=== PATIENT | male | born 1935 | race Caucasian/White ===

== ENCOUNTER 2017-07-23 11:12 | Inpatient (IN) | payer MEDICARE ==
[~2017-07-23] VITALS: Ht 177.8 cm; Wt 97.1 kg
[~2017-07-23 11:12] MED LIST: ALLOPURINOL300 MG PO; DIGOXIN125 MCG PO; FLOMAX0.4 MG PO; FUROSEMIDE40 MG PO; HUMALOG100 UNIT/1 SC; LEVAQUIN500 MG PO; LEVEMIR100 UNIT/1 SC; LEVOTHYROXINE100 MC1 PO; LEVOTHYROXINE75 MCG PO; LOVENOX60 MG/0.6 SC; METOLAZONE5 MG PO; METOPROLOL TART50 MG PO; MIDODRINE HCL2.5 MG PO; MUPIROCIN22 GM TOP; POTASSIUM CHLO10 ME1 PO; WARFARIN SODIUM2 MG PO
[2017-07-23 12:13] LABS: BASOPHILS # (AUTO) 0.1 (0.0-0.1); BASOPHILS % 0.8 % (0.0-1.0); EOSINOPHILS % 0.2 % (0.0-6.0); HEMATOCRIT 35.5 % (38.2-49.6); HEMOGLOBIN 11.4 g/dL (14.0-18.0); LYMPHOCYTES # (AUTO) 1.3 (1.0-3.2); LYMPHOCYTES % 12.1 % (18.0-39.1); MEAN CORPUSCULAR HEMOGLOBIN 30.3 pg (28-32); MEAN CORPUSCULAR HGB CONC 32.1 g/dL (31-35); MEAN CORPUSCULAR VOLUME 94.4 fL (81-99); MONOCYTES # (AUTO) 1.8 (0.2-0.8); MONOCYTES % 16.1 % (4.4-11.3); NEUTROPHILS # (AUTO) 6.6 (2.1-6.9); NEUTROPHILS % 60.6 % (38.7-80.0); PLATELET COUNT 233 x10e3/uL (140-360); RED BLOOD COUNT 3.76 x10e6/uL (4.3-5.7); RED CELL DISTRIBUTION WIDTH 17.3 % (11.7-14.4)
[2017-07-23] MEDS ORDERED: ASPIRIN 81 MG CHEW TAB PO ONE (12:15)
[2017-07-23] MEDS ORDERED: ONDANSETRON HCL INJ 2 MG/ML VIAL IV STA (12:20)
[2017-07-23 12:31] LABS: ALBUMIN/GLOBULIN RATIO 0.8 (0.8-2.0); ANION GAP 20.2 mmol/L (8-16); CALCIUM 9.3 mg/dL (8.4-10.2); CREATININE, SERUM 1.74 mg/dL (0.72-1.25); POTASSIUM 4.2 mmol/L (3.5-5.1)
[2017-07-23 13:04] LABS: INR 2.99; PROTHROMBIN TIME 32.7 seconds (11.9-14.5)
[2017-07-23 13:05] LABS: PARTIAL THROMBOPLASTIN TIME 57.5 seconds (23.8-35.5)
--- NOTE | 2017-07-23 13:07 | Diagnostic Imaging Report ---
PROCEDURE: A single AP view of the chest. COMPARISON: Patients [facility], , CHEST 2 VIEWS, 06/20/2017, 15:59. INDICATIONS: NAUSEA, PASSED OUT FINDINGS: Lines/tubes: None. Lungs: Lungs are hypoinflated, but grossly clear. No consolidation or pulmonary edema. Pleura: There is no pleural effusion or pneumothorax. Heart and mediastinum: Prominence of the cardiac silhouette, which is partly due to low lung volumes and AP projection. Bones: No acute bony abnormality. IMPRESSION: 1. hypoinflated lungs, without acute cardiopulmonary disease. Clint Romano M.D. Dictated by: Clint Romano M.D. on 07/23/2017 at 13:14 Electronically approved by: Clint Romano M.D. on 07/23/2017 at 13:14
[2017-07-23 14:16] LABS: TROPONIN I 0.012 ng/mL (0-0.300)
--- NOTE | 2017-07-23 14:24 | Diagnostic Imaging Report ---
History:Syncope Comparison studies:None Technique: Axial images were obtained from the skull base to the vertex. Coronal and sagittal images reconstructed from the axial data. Intravenous contrast: None Findings: Scalp/skull: No abnormalities. Extra-axial spaces: No masses. No fluid collections. Brain sulci: Mildly prominent. Ventricles: Mild compensatory dilatation. No hydrocephalus. Parenchyma: Scattered hypodensities in the supratentorial white matter are small vessel ischemic changes. Small chronic lacunar infarct at the bilateral striatocapsular subinsular regions. No masses, hemorrhage, acute or chronic cortical vascular insults. Sellar/suprasellar region: No abnormalities. Craniocervical junction: Patent foramen magnum. No Chiari one malformation. Incidental findings: Atherosclerotic calcifications in the carotid siphons and vertebral arteries . Impression: No acute abnormalities. Chronic findings: 1. Mild generalized volume loss. 2. Mild supratentorial white matter small vessel ischemic changes. Signed by: DR Cory Clark M.D. on 07/23/2017 2:20 PM
[2017-07-23 14:32] LABS: LYMPHOCYTES % (MANUAL) 11 % (19-48); METAMYELOCYTES % (MANUAL) 4 % (0-0); MONOCYTES % (MANUAL) 15 % (3.4-9.0); MYELOCYTES % (MANUAL) 3 % (0-0); NEUTROPHILS % (MANUAL) 63 % (40-74); PROMYELOCYTES % (MANUAL) 2 % (0-0)
[2017-07-23 14:33] LABS: ANISOCYTOSIS SLIGHT; HYPOCHROMASIA SLIGHT; PLATELET ESTIMATE ADEQUATE; PLATELET MORPHOLOGY COMMENT NORMAL; RBC MORPHOLOGY COMMENT NORMAL
[2017-07-23] MEDS ORDERED: ACETAMINOPHEN 325 MG TAB PO ONE (15:00)
[2017-07-23] MEDS ORDERED: SODIUM CHLORIDE 0.9% 1000ML 1,000 ML IV SCH (15:00)
[2017-07-23 15:29] LABS: BILIRUBIN,URINE NEGATIVE (NEGATIVE); KETONES,URINE NEGATIVE (NEGATIVE); LEUKOCYTE ESTERASE ,URINE 2+ (NEGATIVE); NITRITE,URINE NEGATIVE (NEGATIVE); URINE UROBILINOGEN 0.2 mg/dL (0.2 - 1)
[2017-07-23 15:30] LABS: CLARITY,URINE SL CLOUDY (CLEAR); COLOR,URINE YELLOW (YELLOW); PROTEIN,URINE DIPSTICK 1+ (NEGATIVE)
[2017-07-23 15:47] LABS: BACTERIA,URINE MODERATE /HPF; RBC,URINE >50 /HPF (0-5); WBC,URINE (MAN) >50 /HPF (0-5)
[2017-07-23 15:48] LABS: AMORPHOUS SEDIMENT,URINE FEW (FEW)
[2017-07-23] MEDS ORDERED: CIPRO500 MG PO (17:07)
[2017-07-23] MEDS ORDERED: DOXYCYCLINE HY100 MG PO (17:07)
[2017-07-23] MEDS ORDERED: CEFTRIAXONE SOD 1 GM/NS 50 ML 50 ML IV STA (17:10)
[2017-07-23] MEDS ORDERED: DEXTROSE 50% SYRINGE 50 ML IV PRN (17:45)
[2017-07-23] MEDS ORDERED: TRAMADOL HCL 50 MG TAB PO ONE (17:45)
[2017-07-23] MEDS ORDERED: ONDANSETRON HCL INJ 2 MG/ML VIAL IV PRN (17:45)
[2017-07-23] MEDS: SODIUM CHLORIDE 0.9% 1000ML 1,000 ML IV SCH (18:06)
[2017-07-23 20:20] VITALS: BP 104/59
[2017-07-23 20:45] VITALS: BP 104/59
[2017-07-23] MEDS: INSULIN REGULAR, HUMAN 100 UNIT/1 ML 3ML VIAL SQ SCH (21:00)
[2017-07-23 22:19] LABS: CREATINE KINASE MB 0.9 ng/mL (0.00-5.00); TROPONIN I 0.005 ng/mL (0-0.300)
[2017-07-24] VITALS: BP 112/60
[2017-07-24] MEDS: SODIUM CHLORIDE 0.9% 1000ML 1,000 ML IV SCH ×2 (01:40→08:05)
[2017-07-24 04:00] VITALS: BP 139/67
[2017-07-24 06:40] LABS: BASOPHILS % 0.5 % (0.0-1.0); EOSINOPHILS % 0.4 % (0.0-6.0); HEMATOCRIT 29.3 % (38.2-49.6); HEMOGLOBIN 9.3 g/dL (14.0-18.0); LYMPHOCYTES # (AUTO) 1.5 (1.0-3.2); LYMPHOCYTES % 18.1 % (18.0-39.1); MEAN CORPUSCULAR HGB CONC 31.7 g/dL (31-35); MEAN CORPUSCULAR VOLUME 94.5 fL (81-99); MONOCYTES # (AUTO) 1.7 (0.2-0.8); MONOCYTES % 20.1 % (4.4-11.3); NEUTROPHILS # (AUTO) 4.5 (2.1-6.9); NEUTROPHILS % 53.2 % (38.7-80.0); PLATELET COUNT 163 x10e3/uL (140-360); RED CELL DISTRIBUTION WIDTH 17.3 % (11.7-14.4)
[2017-07-24 06:59] LABS: INR 3.51; PROTHROMBIN TIME 37.1 seconds (11.9-14.5)
[2017-07-24 07:18] LABS: ANION GAP 15.9 mmol/L (8-16); CALCIUM 8.3 mg/dL (8.4-10.2); CREATININE, SERUM 1.57 mg/dL (0.72-1.25); POTASSIUM 3.9 mmol/L (3.5-5.1)
[2017-07-24 07:26] LABS: CREATINE KINASE MB 1.1 ng/mL (0.00-5.00); TROPONIN I 0.015 ng/mL (0-0.300)
[2017-07-24 07:48] LABS: ANISOCYTOSIS SLIGHT; EOSINOPHILS % (MANUAL) 1 % (0-7); LYMPHOCYTES % (MANUAL) 16 % (19-48); METAMYELOCYTES % (MANUAL) 4 % (0-0); MONOCYTES % (MANUAL) 20 % (3.4-9.0); NEUTROPHILS % (MANUAL) 54 % (40-74); NUCLEATED RED BLOOD CELLS 2; PROMYELOCYTES % (MANUAL) 1 % (0-0); RBC MORPHOLOGY COMMENT NORMAL
[2017-07-24 07:49] LABS: HYPOCHROMASIA SLIGHT; PLATELET ESTIMATE ADEQUATE; PLATELET MORPHOLOGY COMMENT NORMAL
[2017-07-24] MEDS: DOXYCYCLINE HYCLATE TABLET 100 MG TAB PO SCH ×2 (08:05→17:00)
[2017-07-24] MEDS: CEFTRIAXONE SOD 1 GM/NS 50 ML 50 ML IV SCH (08:05)
[2017-07-24] MEDS: INSULIN REGULAR, HUMAN 100 UNIT/1 ML 3ML VIAL SQ SCH ×5 (08:05→21:23)
[2017-07-24] MEDS ORDERED: CIPROFLOXACIN 500 MG TAB PO SCH (09:00)
[2017-07-24 11:29] VITALS: BP 127/67
[2017-07-24] MEDS ORDERED: PROPOFOL IV EMULSION 10 MG/ML 20 ML VIAL ONE (14:39)
--- NOTE | 2017-07-24 15:08 | Consultation ---
DATE OF CONSULTATION: July 24, 2017 REASON FOR CONSULTATION: Open wound on the foot. HISTORY OF PRESENT ILLNESS: This patient is an 82-year-old white gentleman with history of diabetes mellitus, chronic hypertension, neuropathy, hypothyroidism, hypertension, chronic kidney disease, anemia, neuropathy, sleep apnea. The patient was recently admitted back on June 21, 2017, with osteomyelitis of the left big toe. He underwent amputation of the big toe and was transferred to [facility], where he received IV antibiotic, and he was doing good. The patient was discharged home recently. He apparently sustained trauma to the foot at the site of the amputation. He has a hematoma. He was going to see podiatry today, Dr. Sajan Carroll. However, in the parking lot, he almost passed out, so instead they brought him to the emergency room. In the emergency room, he was found to be hypotensive and orthostatic, so he was admitted. When I saw the patient, he is currently lying in bed comfortably. He has no complaints. I was asked to see him to make adjustment in his antibiotic for his foot. PAST MEDICAL HISTORY: As mentioned above. PAST SURGICAL HISTORY: Amputation of the toe. ALLERGIES: NKA. SOCIAL HISTORY: There is no smoking, drug abuse or alcohol abuse. FAMILY HISTORY: Otherwise unremarkable. REVIEW OF SYSTEMS HEENT: Negative. PULMONARY: Negative. CARDIAC: Negative. : Negative. SKIN: There is no rash. JOINTS: No new complaint. OTHER: I reviewed the patient's 14 points, and all are within normal limits. LABS: White count 10.9, hemoglobin 11.4, platelets 233. Sodium 140, potassium 3.9, creatinine 1.57. PHYSICAL EXAMINATION GENERAL: He is currently alert and oriented, does not seem to be in acute distress. VITALS: Stable, currently afebrile. HEENT: Not icteric. NECK: Supple. CHEST: Clear bilaterally. COR: S1 and S2. No S3, S4, or murmur. ABDOMEN: Soft. Bowel sounds present. No tenderness. SKIN: The foot looked good. There is some hematoma noted, but it was covered. IMPRESSION 1. History of osteomyelitis, status post amputation of the toe. He is currently on ceftriaxone. I have reviewed his record. He grew no bacteria. Will keep him on Rocephin 2 grams daily. Obtain sed rate and C-reactive protein. Continue with wound care. 2. Chronic kidney disease. 3. Hypertension. I will follow with you. Will obtain x-ray of the foot. JESSICA MCINTYRE MD Job#: [id number] MH
--- NOTE | 2017-07-24 15:35 | Consultation ---
DATE OF CONSULTATION: July 24, 2017 CHIEF COMPLAINT/HISTORY OF CHIEF COMPLAINT: Mr. Sanches is a most pleasant 82-year-old gentleman who is well known to me from previous visits to the office. He arrived in the office today with his son and had a syncopal episode in the parking lot, never actually making it inside the office. He was seen slumped over in the backseat of his son's minivan while trying to transfer him into the chair. EMS was called, and he was transported to the emergency room where he has regained consciousness and was admitted for observation under Dr. Jackson. PAST MEDICAL HISTORY: The patient's previous medical history includes hypertension, diabetes, heart disease. He is hypothyroid, has a history of diverticulitis, colitis and renal disease. He recently several weeks ago underwent an amputation of the right hallux. He has a colostomy currently. REVIEW OF SYSTEMS: The patient is alert and awake on today's visit and complains of no pain. He has no difficulty in breathing and is alert and conversive with his son in the room. Review of systems otherwise within normal limits. Please see medical H\T\P for further information. PHYSICAL EVALUATION LOWER EXTREMITY VASCULAR STATUS: The patient has nonpalpable pedal pulses with peripheral arterial disease present. NEUROLOGICALLY: There is a loss of protective sensation as evidenced by Waka-Kobe monofilament testing. DERMATOLOGICALLY: The patient has an amputation site on the right hallux which is not yet healed from surgery several weeks ago. The sutures still remain, and the central aspect of the wound has dehisced with a mild hematoma formation. Apparently he bumped his foot on transport from [place] back to his home and was awaiting further evaluation in the office yesterday when the syncopal episode occurred. The patient states that he had been minimally oozing blood from the wound, and after the episode in transport to the hospital he noticed more shaina bleeding. DIAGNOSIS: On evaluation today, Surgicel is covering the surgical site, which was applied in the ER and has done a good job of coagulating the area. The patient is on anticoagulants currently as necessitated by his heart condition and multiple medical pathologies. Dr. Jackson is managing him from a hematologic standpoint. By all accounts, he had been bleeding minimally from the wound and in the ER was noted to be bleeding fairly heavily prior to the Surgicel application. At this point, there is no shaina bleeding noted. I recommend leaving the Surgicel over the wound and covering with Bactroban and dry gauze and mild compression once daily over the course of the next week, at which point he will be reevaluated with regards to wound healing for possible suture removal or further recommendations. Sterile rewrap today with the appropriate mildly compressive dressings. PT is allowed to ambulate the patient with a nonweightbearing status to the right foot. Job#: [id number] EV
[2017-07-24 16:00] VITALS: BP 130/62
--- NOTE | 2017-07-24 17:15 | Diagnostic Imaging Report ---
PROCEDURE:X-RAY LEFT FOOT, COMPLETE COMPARISON:[facility], DX, FOOT RIGHT AP \T\ LAT, 11/23/2015, 8:25. INDICATIONS:DIABETES FINDINGS: Marked generalized osteopenia, which limits evaluation of the bony structures. Postoperative changes of bunionectomy in the first metatarsal bone, with associated degenerative changes in the first toe tarsometatarsal and metatarsophalangeal joints. 2 metallic screws are noted in the distal diaphysis of the first metatarsal bone. 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 No definite cortical erosion is noted. Extensive vascular calcifications. Soft tissue swelling in the dorsal and plantar aspect of the foot. CONCLUSION: 1. Exam markedly limited by generalized osteopenia. 2. No definite cortical erosion is noted to suggest osteomyelitis. 3. Findings suggest chronic Lisfranc injury Clint Romano M.D. Dictated by: Clint Romano M.D. on 07/24/2017 at 17:21 Electronically approved by: Clint Romano M.D. on 07/24/2017 at 17:21
[2017-07-24 20:00] VITALS: BP 127/66
[2017-07-25 00:20] VITALS: BP 133/71
[2017-07-25 04:00] VITALS: BP 135/75
[2017-07-25 06:32] LABS: BASOPHILS % 0.4 % (0.0-1.0); EOSINOPHILS % 0.2 % (0.0-6.0); HEMATOCRIT 28.5 % (38.2-49.6); HEMOGLOBIN 8.9 g/dL (14.0-18.0); LYMPHOCYTES # (AUTO) 1.3 (1.0-3.2); MEAN CORPUSCULAR HEMOGLOBIN 29.8 pg (28-32); MEAN CORPUSCULAR HGB CONC 31.2 g/dL (31-35); MEAN CORPUSCULAR VOLUME 95.3 fL (81-99); MONOCYTES % 22.7 % (4.4-11.3); NEUTROPHILS % 55.1 % (38.7-80.0); PLATELET COUNT 147 x10e3/uL (140-360); RED BLOOD COUNT 2.99 x10e6/uL (4.3-5.7); RED CELL DISTRIBUTION WIDTH 17.2 % (11.7-14.4)
[2017-07-25 06:47] LABS: INR 3.24; PROTHROMBIN TIME 34.8 seconds (11.9-14.5)
[2017-07-25] MEDS: INSULIN REGULAR, HUMAN 100 UNIT/1 ML 3ML VIAL SQ SCH ×4 (07:30→21:00)
[2017-07-25 07:39] LABS: EOSINOPHILS % (MANUAL) 1 % (0-7); LYMPHOCYTES % (MANUAL) 16 % (19-48); METAMYELOCYTES % (MANUAL) 3 % (0-0); MONOCYTES % (MANUAL) 18 % (3.4-9.0); MYELOCYTES % (MANUAL) 1 % (0-0); NEUTROPHILS % (MANUAL) 60 % (40-74); NUCLEATED RED BLOOD CELLS 1; PLATELET ESTIMATE SLIGHTLY DECREASED; PLATELET MORPHOLOGY COMMENT NORMAL; PROMYELOCYTES % (MANUAL) 1 % (0-0); RBC MORPHOLOGY COMMENT NORMAL
[2017-07-25 07:40] LABS: ANISOCYTOSIS SLIGHT; HYPOCHROMASIA SLIGHT
[2017-07-25 08:01] VITALS: BP 119/75
[2017-07-25] MEDS: DOXYCYCLINE HYCLATE TABLET 100 MG TAB PO SCH (08:14)
[2017-07-25] MEDS: MUPIROCIN 2% OINT 22 GM TUBE TOP SCH (09:00)
[2017-07-25] MEDS: TRAMADOL HCL 50 MG TAB PO PRN ×2 (09:00→15:34)
[2017-07-25] MEDS: CEFTRIAXONE SOD 1 GM/NS 50 ML 50 ML IV SCH (09:00)
[2017-07-25 12:00] VITALS: BP 136/66
[2017-07-25 16:00] VITALS: BP 121/68
[2017-07-25 20:39] VITALS: BP 149/81
[2017-07-26 00:55] VITALS: BP 148/81
[2017-07-26 05:17] VITALS: BP 133/86
[2017-07-26 06:23] LABS: BASOPHILS # (AUTO) 0.1 (0.0-0.1); BASOPHILS % 0.5 % (0.0-1.0); EOSINOPHILS # (AUTO) 0.1 (0.0-0.4); EOSINOPHILS % 0.6 % (0.0-6.0); HEMATOCRIT 28.2 % (38.2-49.6); HEMOGLOBIN 9.1 g/dL (14.0-18.0); LYMPHOCYTES # (AUTO) 0.9 (1.0-3.2); LYMPHOCYTES % 9.5 % (18.0-39.1); MEAN CORPUSCULAR HEMOGLOBIN 30.3 pg (28-32); MEAN CORPUSCULAR HGB CONC 32.3 g/dL (31-35); MONOCYTES # (AUTO) 2.4 (0.2-0.8); MONOCYTES % 24.9 % (4.4-11.3); NEUTROPHILS # (AUTO) 5.2 (2.1-6.9); NEUTROPHILS % 54.5 % (38.7-80.0); PLATELET COUNT 122 x10e3/uL (140-360)
[2017-07-26 06:36] LABS: INR 2.49; PROTHROMBIN TIME 28.3 seconds (11.9-14.5)
[2017-07-26 08:00] VITALS: BP 138/76
[2017-07-26] MEDS ORDERED: PEG (High)/E-LYTE SOLN 4,000 ML BTL PO ONE (08:45)
[2017-07-26] MEDS ORDERED: BISACODYL 5 MG TAB EC PO ONE (08:45)
[2017-07-26] MEDS: CEFTRIAXONE SOD 1 GM/NS 50 ML 50 ML IV SCH (09:29)
[2017-07-26] MEDS: MUPIROCIN 2% OINT 22 GM TUBE TOP SCH (09:29)
[2017-07-26] MEDS: INSULIN REGULAR, HUMAN 100 UNIT/1 ML 3ML VIAL SQ SCH ×4 (09:48→20:40)
[2017-07-26] MEDS: TRAMADOL HCL 50 MG TAB PO PRN ×3 (10:42→20:39)
[2017-07-26 10:57] LABS: EOSINOPHILS % (MANUAL) 3 % (0-7)
[2017-07-26 11:01] LABS: BAND NEUTROPHILS % (MANUAL) 1 %; LYMPHOCYTES % (MANUAL) 11 % (19-48); METAMYELOCYTES % (MANUAL) 1 % (0-0); MONOCYTES % (MANUAL) 20 % (3.4-9.0); NEUTROPHILS % (MANUAL) 63 % (40-74)
[2017-07-26 11:03] LABS: HYPOCHROMASIA SLIGHT
[2017-07-26 11:05] LABS: ANISOCYTOSIS SLIGHT
[2017-07-26 11:06] LABS: PLATELET ESTIMATE SLIGHTLY DECREASED; PLATELET MORPHOLOGY COMMENT FEW LARGE; RBC MORPHOLOGY COMMENT NORMAL
[2017-07-26 12:00] VITALS: BP 155/71
[2017-07-26 16:00] VITALS: BP 92/56
[2017-07-26] MEDS ORDERED: BISACODYL 5 MG TAB EC PO NR (16:15)
--- NOTE | 2017-07-26 16:18 | Consultation ---
DATE OF CONSULTATION: July 25, 2017 NEPHROLOGY CONSULTATION REFERRING PHYSICIAN: Melina Jackson MD REASON FOR CONSULTATION: Symptomatic anemia of unclear etiology. HISTORY OF PRESENT ILLNESS: This 82-year-old, very pleasant white male was brought to the emergency room by his son. He was noted to be very weak, lethargic, drowsy for a few days. He almost had a presyncopal episode while he was brought into the emergency room in his car. In the ER, he was subsequently noted to be hemodynamically stable, not orthostatic. Blood work revealed anemia with a hemoglobin of 11.4, which subsequently dropped down to 8.9. No gross GI bleeding noted. The patient has a colostomy. He has a history of perforated diverticulitis in the remote past. After that, he underwent operation with a partial colectomy and colostomy. Subsequently, in the emergency room, he became hypotensive and orthostatic that required fluid resuscitation. REVIEW OF SYSTEMS: Twelve-point systems reviewed, and pertinent positive symptomatology is per HPI. PAST MEDICAL HISTORY: Diabetes, hypertension, hypothyroidism, chronic kidney disease, peripheral neuropathy, sleep apnea. PAST SURGICAL HISTORY: Amputation of the toe, partial colectomy with colostomy. FAMILY HISTORY: Noncontributory. SOCIAL HISTORY: No smoking, alcohol or any illicit drug use. ALLERGIES: None. HOME MEDICATIONS AND INPATIENT MEDICATIONS: As per MAR, reviewed. PHYSICAL EXAMINATION VITAL SIGNS: Stable. GENERAL: Not in any apparent distress. HEENT: Moist mucosal membranes. Anicteric sclerae. NECK: No neck or axillary lymphadenopathy. CVS: S1 and S2 regular with a 2/6 flow murmur at the apex, nonradiating. LUNGS: Bilaterally grossly clear. ABDOMEN: Protuberant belly, nondistended, nontender. No palpable mass or hernia. Left colostomy bag with liquid brown stool. EXTREMITIES: Warm, pale, bilateral leg edema. LABS: WBC 10.90, which has come down to 9.0. Hemoglobin 11.4, dropped down to 8.9. Hematocrit 35.5, subsequently dropped down to 28.5. MCV 94.4. Platelet count 233. PT 34.8. INR 3.24. Electrolytes normal with baseline elevated creatinine. LFTs showing elevated alkaline phosphatase. Other liver parameters are normal. IMPRESSION 1. Anemia, unspecified etiology. MCV is normal. Therefore, he has normocytic anemia indices. 2. Coagulopathy from anticoagulation. The patient is on anticoagulant. The patient is on warfarin for heart condition (possibly atrial fibrillation). PLAN: Will check stool for Hemoccult blood and anemia profile. Evaluate with upper endoscopy. If upper endoscopy is negative, then obviously the patient will need a colonoscopy through the ostomy. Further recommendations based upon endoscopy findings. I thank Dr. Jackson for allowing me to participate in the care of this patient. Job#: [id number] PILAR
[2017-07-26] MEDS ORDERED: PEG (High)/E-LYTE SOLN 4,000 ML BTL PO NR (18:00)
[2017-07-26] MEDS ORDERED: ETOMIDATE 2 MG/ML 10 ML INJ IV ONE (18:22)
[2017-07-26] MEDS ORDERED: LIDOCAINE HCL 2% LOCAL INJ 5 ML SDV VIAL INJ ONE (18:22)
[2017-07-26] MEDS ORDERED: PROPOFOL IV EMULSION 10 MG/ML 20 ML VIAL ONE (18:22)
[2017-07-26] MEDS ORDERED: FENTANYL CITRATE/PF 100MCG/2 ML INJ ONE (19:39)
[2017-07-26 20:00] VITALS: BP 146/96
[2017-07-27] VITALS: BP 133/63
[2017-07-27] MEDS: TRAMADOL HCL 50 MG TAB PO PRN ×3 (02:18→20:45)
[2017-07-27 07:22] LABS: INR 2.21; PROTHROMBIN TIME 25.7 seconds (11.9-14.5)
[2017-07-27] MEDS ORDERED: SIMETHICONE 40 MG/0.6 ML BTL ONE (07:25)
[2017-07-27 08:00] VITALS: BP 101/57
[2017-07-27] MEDS: CEFTRIAXONE SOD 1 GM/NS 50 ML 50 ML IV SCH (09:47)
[2017-07-27] MEDS: MUPIROCIN 2% OINT 22 GM TUBE TOP SCH (10:00)
[2017-07-27] MEDS: INSULIN REGULAR, HUMAN 100 UNIT/1 ML 3ML VIAL SQ SCH ×4 (10:00→21:00)
[2017-07-27 12:00] VITALS: BP 126/49
[2017-07-27 16:00] VITALS: BP 106/62
[2017-07-27 17:38] LABS: BASOPHILS % 0.3 % (0.0-1.0); EOSINOPHILS # (AUTO) 0.1 (0.0-0.4); EOSINOPHILS % 0.4 % (0.0-6.0); HEMATOCRIT 26.7 % (38.2-49.6); HEMOGLOBIN 8.6 g/dL (14.0-18.0); LYMPHOCYTES # (AUTO) 0.7 (1.0-3.2); LYMPHOCYTES % 4.5 % (18.0-39.1); MEAN CORPUSCULAR HGB CONC 32.2 g/dL (31-35); MONOCYTES # (AUTO) 4.4 (0.2-0.8); MONOCYTES % 29.3 % (4.4-11.3); NEUTROPHILS # (AUTO) 8.5 (2.1-6.9); NEUTROPHILS % 56.7 % (38.7-80.0); PLATELET COUNT 106 x10e3/uL (140-360); RED BLOOD COUNT 2.87 x10e6/uL (4.3-5.7); RED CELL DISTRIBUTION WIDTH 16.8 % (11.7-14.4)
[2017-07-27 18:17] LABS: ALBUMIN 2.2 g/dL (3.5-5.0); ALBUMIN/GLOBULIN RATIO 0.7 (0.8-2.0); ANION GAP 16.6 mmol/L (8-16); CALCIUM 8.3 mg/dL (8.4-10.2); CREATININE, SERUM 1.33 mg/dL (0.72-1.25); POTASSIUM 3.6 mmol/L (3.5-5.1)
[2017-07-27 18:18] LABS: LYMPHOCYTES % (MANUAL) 9 % (19-48)
[2017-07-27 18:21] LABS: MONOCYTES % (MANUAL) 29 % (3.4-9.0); NEUTROPHILS % (MANUAL) 62 % (40-74)
[2017-07-27 18:22] LABS: PLATELET ESTIMATE SLIGHTLY DECREASED; PLATELET MORPHOLOGY COMMENT NORMAL
[2017-07-27 18:23] LABS: RBC MORPHOLOGY COMMENT NORMAL
[2017-07-27 18:25] LABS: MAGNESIUM 0.8 MG/DL (1.3-2.1)
[2017-07-27] MEDS ORDERED: MAGNESIUM SULFATE 2GM/50ML 50 ML IV ONE (20:00)
[2017-07-27] MEDS ORDERED: MAGNESIUM SULF 1GRAM/DEXTROSE 100 ML IV ONE (20:00)
[2017-07-28 07:53] LABS: BASOPHILS # (AUTO) 0.1 (0.0-0.1); BASOPHILS % 0.4 % (0.0-1.0); EOSINOPHILS # (AUTO) 0.2 (0.0-0.4); EOSINOPHILS % 0.9 % (0.0-6.0); HEMATOCRIT 26.1 % (38.2-49.6); HEMOGLOBIN 8.4 g/dL (14.0-18.0); LYMPHOCYTES # (AUTO) 0.7 (1.0-3.2); LYMPHOCYTES % 4.3 % (18.0-39.1); MEAN CORPUSCULAR HEMOGLOBIN 29.9 pg (28-32); MEAN CORPUSCULAR HGB CONC 32.2 g/dL (31-35); MEAN CORPUSCULAR VOLUME 92.9 fL (81-99); MONOCYTES # (AUTO) 4.2 (0.2-0.8); MONOCYTES % 24.7 % (4.4-11.3); NEUTROPHILS # (AUTO) 10.5 (2.1-6.9); NEUTROPHILS % 62.3 % (38.7-80.0); PLATELET COUNT 119 x10e3/uL (140-360); RED BLOOD COUNT 2.81 x10e6/uL (4.3-5.7); RED CELL DISTRIBUTION WIDTH 16.7 % (11.7-14.4)
[2017-07-28 08:00] VITALS: BP 98/42
[2017-07-28] MEDS: CEFTRIAXONE SOD 1 GM/NS 50 ML 50 ML IV SCH (08:14)
[2017-07-28] MEDS: MUPIROCIN 2% OINT 22 GM TUBE TOP SCH (08:14)
[2017-07-28] MEDS: INSULIN REGULAR, HUMAN 100 UNIT/1 ML 3ML VIAL SQ SCH ×3 (08:15→17:18)
[2017-07-28] MEDS: TRAMADOL HCL 50 MG TAB PO PRN (08:15)
[2017-07-28] MEDS: BACITRACIN/POLYMYXIN 30 GM OINT TP SCH (08:15)
[2017-07-28 08:21] LABS: INR 1.95; PROTHROMBIN TIME 23.3 seconds (11.9-14.5)
[2017-07-28 08:38] LABS: ALBUMIN 2.2 g/dL (3.5-5.0); ALBUMIN/GLOBULIN RATIO 0.7 (0.8-2.0); ANION GAP 15.8 mmol/L (8-16); CALCIUM 8.4 mg/dL (8.4-10.2); CREATININE, SERUM 1.23 mg/dL (0.72-1.25); POTASSIUM 3.8 mmol/L (3.5-5.1)
[2017-07-28] MEDS ORDERED: MAGNESIUM SULFATE 2GM/50ML 50 ML IV ONE (10:30)
[2017-07-28] MEDS ORDERED: METOLAZONE 5 MG TAB PO SCH ×2 (11:00)
[2017-07-28] MEDS ORDERED: DIGOXIN 0.125 MG TAB PO SCH (11:00)
[2017-07-28 11:40] LABS: LYMPHOCYTES % (MANUAL) 7 % (19-48)
[2017-07-28 11:41] LABS: EOSINOPHILS % (MANUAL) 1 % (0-7); MONOCYTES % (MANUAL) 23 % (3.4-9.0); NEUTROPHILS % (MANUAL) 69 % (40-74); PLATELET ESTIMATE SLIGHTLY DECREASED; PLATELET MORPHOLOGY COMMENT NORMAL; RBC MORPHOLOGY COMMENT NORMAL
[2017-07-28 12:00] VITALS: BP 111/56
--- NOTE | 2017-07-28 13:15 | Diagnostic Imaging Report ---
Right hand - 3 views HISTORY: Pain. COMPARISON: None available. FINDINGS: Bones: No acute displaced fracture. Degenerative changes are present in multiple carpal carpal joints, the radiocarpal joint, and the first carpal metacarpal joint. Additional degenerative changes are present in the proximal and distal interphalangeal joints of multiple digits. Degenerative changes in the involved joints are evidenced by joint space narrowing and subchondral sclerosis. Decreased bone mineralization is present. No expansile lytic or sclerotic lesion. Joints: The joint spaces are well-maintained. No dislocation. Soft tissues: Atherosclerotic calcifications. IMPRESSION: No acute displaced fracture. Extensive degenerative changes. Signed by: Dr. Patrick Oliver M.D. on 07/28/2017 1:11 PM
--- NOTE | 2017-07-28 14:07 | Cardiology Report ---
DATE OF STUDY: July 28, 2017 ECHOCARDIOGRAM M-MODE: Normal chamber sizes, left ventricular hypertrophy, diminished left ventricular contractility especially the anterior wall, normal mitral aortic valves and no pericardial effusion. SECTOR SCAN: Normal chamber sizes. Left ventricular hypertrophy, diminished left ventricular contractility. Ejection fraction is approximately 40%. Anterior wall is hypokinetic. Mitral aortic and tricuspid valves grossly normal. Small posterior pericardial effusion less than 0.3 cm. CARDIAC DOPPLER STUDY WITH COLOR: Trace mitral and tricuspid regurgitation. CONCLUSION 1. Anterior hypokinesis. 2. Left ventricular hypertrophy with ejection fraction of approximately 40%. 3. Minimal posterior pericardial effusion less than 0.3 cm. Job#: [id number] cc:BEATRIZ FRANKLIN MD
[2017-07-28 16:00] VITALS: BP 128/51
[2017-07-28] MEDS: MIDODRINE 2.5 MG TAB PO SCH ×2 (16:00→21:00)
[2017-07-28] MEDS ORDERED: WARFARIN SOD 2.5 MG TAB PO SCH (17:00)
[2017-07-28] MEDS: WARFARIN SOD 1 MG TAB PO SCH (17:18)
[2017-07-28] MEDS: METOPROLOL TARTRATE 50 MG TAB PO SCH (17:18)
--- NOTE | 2017-07-28 18:32 | Consultation ---
DATE OF CONSULTATION: July 28, 2017 CARDIOLOGY CONSULTATION HISTORY OF PRESENT ILLNESS: This is an 82-year-old white man with a history of congestive heart, ejection fraction in the range of 30%, sleep apnea,, hypothyroidism, chronic hypotension, chronic kidney disease, anemia, left bundle branch block who was admitted via the emergency room because of syncope, atrial fibrillation, admitted via the emergency room because of syncope. This patient was hospitalized here in June with congestive heart failure treated with combination diuretics with improvement. He was discharged on 2 mg of Coumadin 2 doses of metolazone weekly, digoxin, metoprolol tartrate 100 mg b.i.d. for rate control of atrial fibrillation. The INR is satisfactory. He has been followed by a Dr. Sajan Carroll because of osteomyelitis and amputation. He is also getting antibiotics by Dr. Mcintyre. The antibiotics apparently interact with his Coumadin and his INR apparently became elevated over 3. He was visiting Dr. Carroll when he developed syncope, tried getting out of the car. Ambulance was called and the patient was brought to the emergency room. Blood pressure was low. He was getting intravenous fluids with improvement. He has been here in the hospital for approximately 4-5 days. His heart rate has been progressively increasing with rapid atrial fibrillation. Cardiology consultation requested. PAST MEDICAL HISTORY: Is remarkable also for insulin-dependent diabetes, intermittent hypoglycemia causing confusion, possible underlying coronary artery disease, hyperlipidemia, pulmonary hypertension 54 mmHg, proteinuria related to diabetes. He has history of Parkinson's, positional vertigo, hematuria and ulcerative colitis. PAST SURGICAL HISTORY: Left knee replacement in 1989, right knee replacement in 1991. Colostomy, urethral tube, skin surgery and back surgery. FAMILY HISTORY: Father at 77 of congestive heart failure. Mother at age 59 with leukemia. PERSONAL/SOCIAL HISTORY: Denies smoking or drinking. ALLERGIES: CODEINE. REVIEW OF SYSTEMS: Noncontributory. PHYSICAL EXAMINATION: GENERAL: He is alert, coherent and appears to be comfortable. CARDIAC: Jugular veins were not distended. S1 and S2 were irregularly irregular with variable intensity of S1. LUNGS: Clear. ABDOMEN: Soft. Bowel sounds are present. EXTREMITIES: Showed tender right finger, which appears to be swollen. IMPRESSION: 1. Atrial fibrillation with rapid ventricular response exacerbated by metoprolol which has been withheld. 2. Hypomagnesemia at 0.8. 3. Anemia with hemoglobin 8.4. 4. Congestive heart failure, ejection fraction 30%. 5. Volume depletion due to excessive diuretics. 6. Hypothyroidism. 7. Excessive anticoagulation. 8. Possible underlying coronary artery disease. 9. Chronic hypotension on Midodrine. 10. Insulin-dependent diabetes. 11. Chronic kidney disease. 12. Hyperlipidemia. 13. Possible right hand fracture during syncopal spell. 14. Pulmonary hypertension at 54 mmHg. 15. Sleep apnea. 16. History of proteinuria. 17. History of ulcerative colitis. 18. Parkinson disease. 19. Postural dizziness. 20. Hematuria. RECOMMENDATION: Careful monitoring of INR anticoagulation with lower dose of Coumadin. Control ventricular rate with beta blockers and digoxin as needed. Volume status intake and output and daily weights, positional vital signs. Job#: [id number] GH cc:BEATRIZ FRANKLIN MD cc:SAJAN CARROLL DPM cc:JESSICA MCINTYRE MD cc:ALEXANDRA LAZO MD
[2017-07-28 20:54] VITALS: BP 103/59
[2017-07-29] MEDS: INSULIN REGULAR, HUMAN 100 UNIT/1 ML 3ML VIAL SQ SCH ×5 (00:45→23:27)
[2017-07-29] MEDS: LEVOTHYROXINE SODIUM 50 MCG TAB PO SCH (05:32)
[2017-07-29 06:36] LABS: BASOPHILS % 0.3 % (0.0-1.0); EOSINOPHILS # (AUTO) 0.1 (0.0-0.4); EOSINOPHILS % 0.9 % (0.0-6.0); HEMATOCRIT 24.2 % (38.2-49.6); LYMPHOCYTES # (AUTO) 0.6 (1.0-3.2); LYMPHOCYTES % 3.8 % (18.0-39.1); MEAN CORPUSCULAR HEMOGLOBIN 30.5 pg (28-32); MEAN CORPUSCULAR HGB CONC 33.1 g/dL (31-35); MEAN CORPUSCULAR VOLUME 92.4 fL (81-99); MONOCYTES # (AUTO) 2.7 (0.2-0.8); MONOCYTES % 17.9 % (4.4-11.3); NEUTROPHILS % 66.7 % (38.7-80.0); PLATELET COUNT 113 x10e3/uL (140-360); RED BLOOD COUNT 2.62 x10e6/uL (4.3-5.7); RED CELL DISTRIBUTION WIDTH 16.7 % (11.7-14.4)
[2017-07-29 06:58] LABS: INR 1.87; PROTHROMBIN TIME 22.5 seconds (11.9-14.5)
[2017-07-29 07:02] LABS: ANION GAP 12.8 mmol/L (8-16); CALCIUM 8.4 mg/dL (8.4-10.2); CREATININE, SERUM 1.53 mg/dL (0.72-1.25); POTASSIUM 3.8 mmol/L (3.5-5.1)
[2017-07-29 07:58] VITALS: BP 137/53
[2017-07-29 08:10] LABS: BAND NEUTROPHILS % (MANUAL) 5 %; LYMPHOCYTES % (MANUAL) 2 % (19-48); METAMYELOCYTES % (MANUAL) 2 % (0-0); MONOCYTES % (MANUAL) 16 % (3.4-9.0); MYELOCYTES % (MANUAL) 4 % (0-0); NEUTROPHILS % (MANUAL) 70 % (40-74)
[2017-07-29] MEDS: ALLOPURINOL 300 MG TAB PO SCH (08:10)
[2017-07-29] MEDS: MUPIROCIN 2% OINT 22 GM TUBE TOP SCH (08:10)
[2017-07-29] MEDS: POTASSIUM CHLORIDE 10 MEQ TABCR PO SCH (08:10)
[2017-07-29] MEDS: BACITRACIN/POLYMYXIN 30 GM OINT TP SCH (08:10)
[2017-07-29] MEDS: METOPROLOL TARTRATE 50 MG TAB PO SCH ×2 (08:10→16:04)
[2017-07-29] MEDS: FUROSEMIDE 40 MG TAB PO SCH (08:10)
[2017-07-29] MEDS: MIDODRINE 2.5 MG TAB PO SCH ×3 (08:10→23:20)
[2017-07-29 08:11] LABS: PLATELET ESTIMATE SLIGHTLY DECREASED; PLATELET MORPHOLOGY COMMENT FEW LARGE
[2017-07-29 08:12] LABS: ANISOCYTOSIS SLIGHT; HYPOCHROMASIA SLIGHT; RBC MORPHOLOGY COMMENT ABNORMAL
[2017-07-29] MEDS: TRAMADOL HCL 50 MG TAB PO PRN ×2 (08:45→14:50)
[2017-07-29] MEDS ORDERED: SODIUM CHLORIDE 0.9% 1000ML 1,000 ML IV SCH (09:30)
[2017-07-29] MEDS: CEFTRIAXONE SOD 1 GM/NS 50 ML 50 ML IV SCH (09:36)
[2017-07-29] MEDS ORDERED: MAGNESIUM SULFATE 2GM/50ML 50 ML IV ONE ×2 (09:45→10:45)
[2017-07-29] MEDS ORDERED: MAGNESIUM SULFATE 2GM/50ML IV ONE (09:45)
[2017-07-29] MEDS ORDERED: SODIUM CHLORIDE 0.9% 250ML 250 ML IV ONE (11:00)
[2017-07-29] MEDS ORDERED: FUROSEMIDE INJ 10 MG/ML 4 ML VIAL IV ONE (11:00)
[2017-07-29 12:00] VITALS: BP 119/49
[2017-07-29] MEDS ORDERED: SODIUM CHLORIDE 0.9% 250ML 250 ML ONE ×2 (15:10→18:02)
[2017-07-29 16:00] VITALS: BP 111/65
[2017-07-29] MEDS: WARFARIN SOD 1 MG TAB PO SCH (16:03)
--- NOTE | 2017-07-29 16:50 | Diagnostic Imaging Report ---
History: Dizziness Comparison studies: CT head 07/23/2017 Technique: Sagittal T2; axial DWI, FLAIR, MPGR, T1, Coronal FLAIR. Intravenous contrast: None Findings: Scalp: Normal in signal . No masses . Bone marrow: Normal in signal intensity. Extra-axial: No masses, no fluid collections. Brain sulci: Mildly prominent. Ventricles: Mildly prominent . No hydrocephalus . Parenchyma: Scattered T2/FLAIR hyperintensities of the periventricular and the white matter. Again seen bilateral small striatocapsular chronic lacunar infarcts No masses, hemorrhage, acute or chronic vascular insults. Suprasellar region: No abnormalities. Craniocervical junction: No abnormalities. Patent foramen magnum. No Chiari one malformation. Vessels: Normal flow-voids in the arteries and sinuses. Mild fluid intensity signal at the left masseter cells, secondary to nonspecific inflammatory changes. Mild nonspecific mucosal thickening at the left maxillary sinus IMPRESSION: 1. No acute abnormalities. 2. Mild chronic microvascular ischemic changes of the white matter and diffuse volume loss. 3. Mild nonspecific inflammatory changes of the left mastoid air cells Signed by: DR Cory Clark M.D. on 07/29/2017 4:46 PM
[2017-07-29 19:50] VITALS: BP 92/61
[2017-07-30] VITALS: BP 101/60
[2017-07-30 04:45] VITALS: BP 118/67
[2017-07-30] MEDS: LEVOTHYROXINE SODIUM 50 MCG TAB PO SCH (05:50)
[2017-07-30 06:45] LABS: INR 1.55; PROTHROMBIN TIME 19.4 seconds (11.9-14.5)
[2017-07-30 06:54] LABS: ALBUMIN/GLOBULIN RATIO 0.6 (0.8-2.0); CREATININE, SERUM 1.58 mg/dL (0.72-1.25); MAGNESIUM 1.8 MG/DL (1.3-2.1)
[2017-07-30 07:27] LABS: ANION GAP 12.4 mmol/L (8-16); POTASSIUM 3.4 mmol/L (3.5-5.1)
[2017-07-30 08:00] VITALS: BP 100/65
[2017-07-30] MEDS: INSULIN REGULAR, HUMAN 100 UNIT/1 ML 3ML VIAL SQ SCH ×3 (09:00→18:18)
[2017-07-30] MEDS: CEFTRIAXONE SOD 1 GM/NS 50 ML 50 ML IV SCH (10:03)
[2017-07-30] MEDS: FUROSEMIDE 40 MG TAB PO SCH (10:04)
[2017-07-30] MEDS: MIDODRINE 2.5 MG TAB PO SCH ×2 (10:04→17:59)
[2017-07-30] MEDS: POTASSIUM CHLORIDE 10 MEQ TABCR PO SCH (10:04)
[2017-07-30] MEDS: METOPROLOL TARTRATE 50 MG TAB PO SCH ×2 (10:04→18:00)
[2017-07-30] MEDS: MUPIROCIN 2% OINT 22 GM TUBE TOP SCH (10:05)
[2017-07-30] MEDS: ALLOPURINOL 300 MG TAB PO SCH (10:05)
[2017-07-30] MEDS: BACITRACIN/POLYMYXIN 30 GM OINT TP SCH (10:05)
[2017-07-30 11:04] LABS: BASOPHILS % 0.3 % (0.0-1.0); EOSINOPHILS # (AUTO) 0.3 (0.0-0.4); HEMATOCRIT 29.5 % (38.2-49.6); HEMOGLOBIN 9.8 g/dL (14.0-18.0); LYMPHOCYTES # (AUTO) 1.2 (1.0-3.2); LYMPHOCYTES % 8.4 % (18.0-39.1); MEAN CORPUSCULAR HEMOGLOBIN 30.5 pg (28-32); MEAN CORPUSCULAR HGB CONC 33.2 g/dL (31-35); MEAN CORPUSCULAR VOLUME 91.9 fL (81-99); MONOCYTES # (AUTO) 2.7 (0.2-0.8); MONOCYTES % 19.6 % (4.4-11.3); NEUTROPHILS # (AUTO) 8.6 (2.1-6.9); NEUTROPHILS % 62.3 % (38.7-80.0); PLATELET COUNT 120 x10e3/uL (140-360); RED BLOOD COUNT 3.21 x10e6/uL (4.3-5.7); RED CELL DISTRIBUTION WIDTH 16.5 % (11.7-14.4)
[2017-07-30] MEDS ORDERED: POTASSIUM CHLORIDE 10 MEQ TABCR PO ONE (11:20)
[2017-07-30 12:00] VITALS: BP 118/61
[2017-07-30] MEDS: TRAMADOL HCL 50 MG TAB PO PRN (12:43)
[2017-07-30 16:00] VITALS: BP 113/63
[2017-07-30] MEDS: WARFARIN SOD 1 MG TAB PO SCH (18:01)
[2017-07-31] MEDS ORDERED: FUROSEMIDE 20 MG TAB PO SCH (09:00)
--- NOTE | 2017-08-21 10:06 | History and Physical ---
Patrick Sanches is an 82-year-old white male who presented with pain in the leg and weakness. Subsequently, admitted for further evaluation and treatment. PAST MEDICAL HISTORY: History of amputation of left hallux and metatarsal bone for osteomyelitis, recent history of diabetes mellitus, history of hypothyroidism, history of chronic renal failure, history of sleep apnea, history of neuropathy, history of anemia of chronic disease, history of atrial fibrillation, history of congestive heart failure, history of cardiomyopathy with ejection fraction of 30%, history of pulmonary hypertension, history of ulcerative colitis, history of Parkinson's disease. SOCIAL HISTORY: Noncontributory. FAMILY HISTORY: Noncontributory. ALLERGIES: CODEINE. MEDICATIONS: At this time: 1. Ceftriaxone. 2. Sodium chloride. 3. Cipro. 4. Doxycycline. 5. Insulin. 6. Tramadol. 7. Ondansetron. REVIEW OF SYSTEM HEENT: Normal. CARDIAC: History of cardiomyopathy with ejection fraction of 30%. History of atrial fibrillation. History of hypotension. RESPIRATORY: History of pulmonary hypertension. GI: History of ulcerative colitis. : History of chronic renal failure. History of a Perez catheter for a few years. MUSCULOSKELETAL: History of Parkinson's disease. NEUROENDOCRINE: Diabetes mellitus. PHYSICAL EXAMINATION GENERAL: A morbidly obese male. Anemic. No adenopathy. HEART: Within normal limits. LUNGS: Show a few rales. ABDOMEN: Obese. RECTAL: Deferred. CENTRAL NERVOUS SYSTEM: Essentially normal. EXTREMITIES: Has bandages over the left foot. BUN 48, creatinine 1.5. Hemoglobin 9.3 with hematocrit of 29.3, white count of 8400, and platelets 163,000. INR 3.5. IMPRESSION 1. Status post amputation of left hallux and metatarsal for osteomyelitis. 2. Diabetes mellitus. 3. History of hypothyroidism. 4. Chronic renal failure. 5. Sleep apnea. 6. Neuropathy. 7. Anemia of chronic disease. 8. Atrial fibrillation. 9. Congestive heart failure. 10. Cardiomyopathy with ejection fraction of 30%. 11. Pulmonary hypertension. 12. History of ulcerative colitis. 13. History of Parkinson's. PLAN: Have appropriate cultures. Aggressive antibiotics. Cardiology consult. Consult with Dr. Carroll who had done the amputation for followup. Job#: [id number] [place]
--- NOTE | 2017-08-21 10:18 | Discharge Summary ---
Mr. Sanches is an 82-year-old male who presented with multiple problems. For detailed history and physical, please review my dictation dated July 24, 2017. On admission, admission hemoglobin was 9.1, hematocrit 29.3, white count of 8400, and platelets were 163,000. BUN 48 and creatinine 1.5. The patient dropped the hemoglobin on the following day from 11.4 to 8.9. INR was 3.2. Stool for occult blood was negative. Had GI consultation and was suggested to have blood if needed. The patient has had a syncopal episode with which he came. INR was stable at 2.49 on July 26, 2017. Hemoglobin was also stable at 9.1. Consultation with Dr. Adam, infectious disease customer service sales consultant was obtained. Patient a colonoscopy which showed polyps. These were removed. The patient subsequently had a drop in the hemoglobin to 8 on July 29, 2017. Subsequently, 2 units of packed RBCs were given. Magnesium dropped to 1.2. Magnesium sulfate was also given. The patient was transfused to 9.8. Subsequently, for further care the patient was transferred to [facility] on July 30, 2017. FINAL DIAGNOSES 1. Syncope. 2. Hypotension. 3. Status post amputation of left hallux and metatarsal bone. 4. Osteomyelitis. 5. Diabetes mellitus. 6. Hypothyroidism. 7. Chronic renal failure. 8. Sleep apnea. 9. Neuropathy. 10. Anemia of chronic disease and blood loss. 11. Colonic polyps. 12. Atrial fibrillation. 13. Congestive heart failure. 14. Cardiomyopathy with ejection fraction of 30%. 15. Pulmonary hypertension. 16. History of ulcerative colitis. 17. History of Parkinson's disease. PLAN: Continue the antibiotics for the osteomyelitis and physiotherapy and close watch on the blood and renal functions. Continue the Coumadin. Keep a close eye on the INR. Prognosis remains extremely poor. BEATRIZ FRANKLIN MD Job#: [id number] [place]
== END 2017-07-30 20:26 | DRG 812 ==
LOC: ER 11:12 → ERHOLD 18:27 → MED/SURG 19:51 → IMCU 07-24 07:29 → OBSVTOIN 07-24 09:00 → MED/SURG2 07-24 12:51
PROVIDERS: ADMIT Internal Medicine Medical Oncology; ATTEND Internal Medicine Medical Oncology
PROC: 0DB78ZX Excision of Stomach, Pylorus, Via Natural or Artificial Opening Endoscopic, Diagnostic (ICD-10-PCS; 2017-07-26)
PROC: 0DB98ZX Excision of Duodenum, Via Natural or Artificial Opening Endoscopic, Diagnostic (ICD-10-PCS; principal; 2017-07-26 08:26)
PROC: 0DBK8ZX Excision of Ascending Colon, Via Natural or Artificial Opening Endoscopic, Diagnostic (ICD-10-PCS; 2017-07-27)
PROC: 0DBM8ZX Excision of Descending Colon, Via Natural or Artificial Opening Endoscopic, Diagnostic (ICD-10-PCS; 2017-07-27)
PROC: 0DBL8ZX Excision of Transverse Colon, Via Natural or Artificial Opening Endoscopic, Diagnostic (ICD-10-PCS; 2017-07-27)
PROC: 30233N1 Transfusion of Nonautologous Red Blood Cells into Peripheral Vein, Percutaneous Approach (ICD-10-PCS; 2017-07-29)
DX: D62 Acute posthemorrhagic anemia (principal); E11.22 Type 2 diabetes mellitus with diabetic chronic kidney disease; E11.51 Type 2 diabetes mellitus with diabetic peripheral angiopathy without gangrene; I95.9 Hypotension, unspecified; E83.42 Hypomagnesemia; G20 Parkinson's disease; G62.9 Polyneuropathy, unspecified; I27.20 Pulmonary hypertension, unspecified; I13.0 Hypertensive heart and chronic kidney disease with heart failure and stage 1 through stage 4 chronic kidney disease, or unspecified chronic kidney disease; F23 Brief psychotic disorder; B37.49 Other urogenital candidiasis; I50.9 Heart failure, unspecified; K22.2 Esophageal obstruction; I48.91 Unspecified atrial fibrillation; T45.515A Adverse effect of anticoagulants, initial encounter; Z79.01 Long term (current) use of anticoagulants; Z89.429 Acquired absence of other toe(s), unspecified side; K44.9 Diaphragmatic hernia without obstruction or gangrene; K29.70 Gastritis, unspecified, without bleeding; K29.80 Duodenitis without bleeding; I44.7 Left bundle-branch block, unspecified; Z93.3 Colostomy status; T50.2X5A Adverse effect of carbonic-anhydrase inhibitors, benzothiadiazides and other diuretics, initial encounter; E03.9 Hypothyroidism, unspecified; Z79.52 Long term (current) use of systemic steroids; I25.10 Atherosclerotic heart disease of native coronary artery without angina pectoris; E66.9 Obesity, unspecified; Z68.30 Body mass index [BMI] 30.0-30.9, adult; E86.0 Dehydration; N18.9 Chronic kidney disease, unspecified; Z79.4 Long term (current) use of insulin; G47.33 Obstructive sleep apnea (adult) (pediatric); W19.XXXA Unspecified fall, initial encounter; S69.91XA Unspecified injury of right wrist, hand and finger(s), initial encounter; D63.8 Anemia in other chronic diseases classified elsewhere; E78.5 Hyperlipidemia, unspecified
CPT/HCPCS: 36415; 36430; 43239; 45384; 45385; 70450; 70551; 71010; 80048; 80053; 80162; 81001; 82270; 82550; 82553; 82948; 83735; 83880; 84484; 85025; 85610; 85651; 85730; 86140; 86850; 86900; 86920; 87086; 88305; 88312; 93005; 93306; 96360; 96374; 97139; 99285; G0378; J0696; J1940; J2001; J2405; J3475; J7030; J7050; P9016

== ENCOUNTER 2017-08-30 11:44 | Inpatient (IN) | payer MEDICARE ==
[~2017-08-30] VITALS: Ht 180.3 cm; Wt 98.0 kg
[~2017-08-30 11:44] MED LIST changes: +CIPRO500 MG PO; +DOXYCYCLINE HY100 MG PO
[2017-08-30 12:16] LABS: BASOPHILS # (AUTO) 0.1 (0.0-0.1); BASOPHILS % 0.5 % (0.0-1.0); EOSINOPHILS % 0.4 % (0.0-6.0); HEMOGLOBIN 8.8 g/dL (14.0-18.0); LYMPHOCYTES # (AUTO) 1.3 (1.0-3.2); MEAN CORPUSCULAR HEMOGLOBIN 30.3 pg (28-32); MEAN CORPUSCULAR HGB CONC 31.4 g/dL (31-35); MEAN CORPUSCULAR VOLUME 96.6 fL (81-99); MONOCYTES # (AUTO) 2.2 (0.2-0.8); MONOCYTES % 19.3 % (4.4-11.3); NEUTROPHILS # (AUTO) 5.8 (2.1-6.9); NEUTROPHILS % 52.4 % (38.7-80.0); PLATELET COUNT 185 x10e3/uL (140-360); RED CELL DISTRIBUTION WIDTH 17.9 % (11.7-14.4)
[2017-08-30 12:31] LABS: INR 4.5
--- NOTE | 2017-08-30 12:31 | Diagnostic Imaging Report ---
PROCEDURE: A single AP view of the chest. COMPARISON: Patients [facility], , CHEST SINGLE (PORTABLE), 07/23/2017, 12:17. INDICATIONS: THROWING UP BLOOD FINDINGS: Lines/tubes: None. Lungs: The lungs are well inflated. Minimal linear opacities projecting in the left costophrenic angle likely represents subsegmental atelectasis. The lungs are otherwise clear. There is no evidence of consolidation or pulmonary edema. Pleura: There is no pleural effusion or pneumothorax. Heart and mediastinum: The heart and the mediastinum are unremarkable. Bones: No acute bony abnormality. Degenerative disc changes in the thoracic spine. Likely vertebroplasty changes in the mid thoracic spine. Partially visualized marked degenerative changes and joint space narrowing in the left glenohumeral joint. IMPRESSION: 1. minimal subsegmental atelectasis in the left lower lung. The lungs are otherwise clear. Clint Romano M.D. Dictated by: Clint Romano M.D. on 08/30/2017 at 12:39 Electronically approved by: Clint Romano M.D. on 08/30/2017 at 12:39
[2017-08-30 12:33] LABS: PARTIAL THROMBOPLASTIN TIME 100.4 seconds (23.8-35.5)
[2017-08-30 12:35] LABS: PROTHROMBIN TIME 45.2 seconds (11.9-14.5)
[2017-08-30] MEDS ORDERED: ONDANSETRON HCL INJ 2 MG/ML VIAL IV STA (12:36)
[2017-08-30] MEDS ORDERED: ONDANSETRON HCL INJ 2 MG/ML VIAL ONE (12:36)
[2017-08-30 12:45] LABS: ALBUMIN 2.3 g/dL (3.5-5.0); ALBUMIN/GLOBULIN RATIO 0.7 (0.8-2.0); ANION GAP 16.6 mmol/L (8-16); CALCIUM 8.7 mg/dL (8.4-10.2); CREATININE, SERUM 1.38 mg/dL (0.72-1.25); POTASSIUM 4.6 mmol/L (3.5-5.1)
[2017-08-30] MEDS ORDERED: SODIUM CHLORIDE 0.9% 1000ML 1,000 ML IV SCH (13:26)
[2017-08-30] MEDS ORDERED: ONDANSETRON HCL INJ 2 MG/ML VIAL IV PRN (13:30)
[2017-08-30] MEDS ORDERED: DEXTROSE 50% SYRINGE 50 ML IV PRN (15:00)
[2017-08-30 15:20] VITALS: BP 135/60
[2017-08-30] MEDS: INSULIN REGULAR, HUMAN 100 UNIT/1 ML 3ML VIAL SQ SCH ×2 (16:30→20:16)
[2017-08-30 16:44] VITALS: BP 135/60
[2017-08-30 20:36] VITALS: BP 138/80
[2017-08-30] MEDS ORDERED: SODIUM CHLORIDE 0.9% 250ML 250 ML ONE ×2 (21:55→23:48)
[2017-08-31] VITALS (7 sets, daily range): BP systolic 118–161; BP diastolic 53–105
[2017-08-31] MEDS ORDERED: SODIUM CHLORIDE 0.9% 250ML 250 ML ONE (01:27)
[2017-08-31] MEDS: INSULIN REGULAR, HUMAN 100 UNIT/1 ML 3ML VIAL SQ SCH ×4 (07:30→20:47)
[2017-08-31] MEDS ORDERED: ACETAMINOPHEN650 MG PO (11:34)
[2017-08-31 14:46] LABS: BASOPHILS % 0.2 % (0.0-1.0); EOSINOPHILS % 0.2 % (0.0-6.0); HEMATOCRIT 18.4 % (38.2-49.6); LYMPHOCYTES # (AUTO) 1.4 (1.0-3.2); LYMPHOCYTES % 16.8 % (18.0-39.1); MEAN CORPUSCULAR HEMOGLOBIN 30.9 pg (28-32); MEAN CORPUSCULAR HGB CONC 32.1 g/dL (31-35); MEAN CORPUSCULAR VOLUME 96.3 fL (81-99); MONOCYTES # (AUTO) 1.7 (0.2-0.8); MONOCYTES % 21.2 % (4.4-11.3); NEUTROPHILS # (AUTO) 4.2 (2.1-6.9); NEUTROPHILS % 51.8 % (38.7-80.0); PLATELET COUNT 139 x10e3/uL (140-360); RED BLOOD COUNT 1.91 x10e6/uL (4.3-5.7); RED CELL DISTRIBUTION WIDTH 18.3 % (11.7-14.4)
[2017-08-31 14:50] LABS: HEMOGLOBIN 5.9 g/dL (14.0-18.0)
[2017-08-31 14:56] LABS: INR 1.68; PROTHROMBIN TIME 20.7 seconds (11.9-14.5)
[2017-08-31 14:57] LABS: PARTIAL THROMBOPLASTIN TIME 59.1 seconds (23.8-35.5)
[2017-08-31 15:03] LABS: ANION GAP 12.8 mmol/L (8-16); CALCIUM 8.7 mg/dL (8.4-10.2); CREATININE, SERUM 1.32 mg/dL (0.72-1.25); POTASSIUM 3.8 mmol/L (3.5-5.1)
[2017-08-31] MEDS ORDERED: ZOSYN 3.373.375 GM/5 IVP (17:05)
[2017-08-31] MEDS ORDERED: ACETAMINOPHEN 650 MG SUPP PR PRN (17:15)
[2017-08-31] MEDS ORDERED: SODIUM CHLORIDE 0.9% 250ML 250 ML IV ONE (17:30)
[2017-08-31] MEDS: DOXYCYCLINE HYCLATE TABLET 100 MG TAB PO SCH (17:56)
[2017-08-31] MEDS: CIPROFLOXACIN 500 MG TAB PO SCH (17:56)
[2017-08-31 18:04] LABS: FERRITIN 170.6 ng/mL (21.81-274.66)
[2017-08-31] MEDS: MIDODRINE 2.5 MG TAB PO SCH (20:47)
--- NOTE | 2017-08-31 20:56 | History and Physical ---
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 He was at [facility] getting IV antibiotic because of the osteomyelitis of the foot. He was getting Coumadin and Lovenox at the same time. The INR was very high. Patient started having hematemesis. INR was done, and the INR was extremely high. He was sent to the hospital. The hemoglobin was found to be extremely low, so the patient is going to get a blood transfusion after the hemoglobin was 5.9. REVIEW OF SYSTEMS CARDIOVASCULAR: No chest pain or palpitations. RESPIRATORY: No shortness of breath. No cough. GASTROINTESTINAL: No nausea. No vomiting. No diarrhea. GENITOURINARY: No frequency. No dysuria. ALLERGIES: CODEINE. SOCIAL HISTORY: He does not smoke. He does not drink. PAST MEDICAL HISTORY 1. Positive for chronic atrial fibrillation. 2. Status post amputation of right big toe. 3. 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 4. Benign prostatic hypertrophy status post suprapubic tube placement. PHYSICAL EXAMINATION VITALS: Blood pressure 132/57, temperature 98 degrees, heart rate 94 per minute, respiratory rate 21 per minute, oxygen saturation 97%. HEART: Irregularly irregular heart rate. Normal S1 and S2 sounds. LUNGS: Clear bilaterally. ABDOMEN: Soft. He has a colostomy in place. EXTREMITIES: Amputation site on the right big toe and an open wound on the back of the left leg. LABORATORY DATA: On the blood work, we have a CBC with white blood count 8.15. Hemoglobin is 5.9, down from 8.8. Hematocrit 18.4. MCV 96.3. Platelet count 139,000. On the BMP, we have sodium 143, potassium 3.8, chloride 107, CO2 27, BUN 70, creatinine 1.32, glucose 167. Now the sugar is 162. Calcium 8.7. We have also a chest x-ray done in the emergency room which showed some minimal subsegmental atelectasis in the left lower lung. The lungs are otherwise clear. FINAL IMPRESSION 1. Coumadin toxicity. 2. Hematemesis. 3. Acute anemia secondary to bleeding from hematemesis and probably a gastrointestinal bleed. 4. Chronic atrial fibrillation. 5. Status post colostomy. 6. Benign prostatic hypertrophy status post a suprapubic tube placement. 7. Right big toe amputation status post osteomyelitis. PLAN OF TREATMENT: We are going to give 2 units of blood transfusion. Recheck the CBC tomorrow. We are going to discontinue the Coumadin and Lovenox. Continue monitoring PT and INR very carefully. Stool guaiac x3. Gastroenterology consult with Dr. Facundo Beckwith because of possibility of gastric bleeding. We are going to resume the rest of the halfway medications with the exception of Lovenox and Coumadin, of course. We are going to consult Dr. Villaseñor for cardiology. We are going to consult Dr. Ce Stephenson for hematology, also. The case has been discussed with the nurse. Job#: [id number]
[2017-08-31] MEDS ORDERED: ACETAMINOPHEN 325 MG TAB PO ONE (21:45)
[2017-08-31] MEDS ORDERED: FUROSEMIDE INJ 10 MG/ML 2 ML VIAL IV ONE (21:45)
[2017-08-31] MEDS: PIPER-TAZ 3.375 GM 50 ML IV SCH (21:45)
[2017-09-01] VITALS: BP 121/49
[2017-09-01 00:31] LABS: BILIRUBIN,URINE NEGATIVE (NEGATIVE); CLARITY,URINE CLOUDY (CLEAR); COLOR,URINE YELLOW (YELLOW); KETONES,URINE NEGATIVE (NEGATIVE); LEUKOCYTE ESTERASE ,URINE 2+ (NEGATIVE); NITRITE,URINE NEGATIVE (NEGATIVE); PROTEIN,URINE DIPSTICK NEGATIVE (NEGATIVE); URINE UROBILINOGEN 0.2 mg/dL (0.2 - 1)
[2017-09-01 00:47] LABS: BACTERIA,URINE FEW /HPF; EPITHELIAL CELLS,URINE FEW /LPF; RBC,URINE 0-5 /HPF (0-5); TRANSITIONAL EPI CELLS,URINE MANY
[2017-09-01] MEDS ORDERED: PANTOPRAZOLE 40 MG 10ML VIAL IV STA (01:33)
[2017-09-01] MEDS ORDERED: PANTOPRAZOL 40MG/SOD CHL 0.9% 250 ML IV SCH (01:45)
[2017-09-01] MEDS ORDERED: FUROSEMIDE INJ 10 MG/ML 4 ML VIAL ONE (02:26)
[2017-09-01] MEDS: PANTOPRAZOL 40MG/SOD CHL 0.9% 50 ML IV SCH ×4 (02:43→17:29)
[2017-09-01 04:00] VITALS: BP 132/73
[2017-09-01] MEDS: DOXYCYCLINE HYCLATE TABLET 100 MG TAB PO SCH ×2 (05:55→18:20)
[2017-09-01] MEDS: PIPER-TAZ 3.375 GM 50 ML IV SCH ×3 (05:55→22:00)
[2017-09-01] MEDS: LEVOTHYROXINE SODIUM 100 MCG TAB PO SCH (05:55)
[2017-09-01] MEDS: CIPROFLOXACIN 500 MG TAB PO SCH ×2 (05:55→18:20)
[2017-09-01] MEDS: INSULIN REGULAR, HUMAN 100 UNIT/1 ML 3ML VIAL SQ SCH ×4 (07:30→22:29)
[2017-09-01] MEDS: FUROSEMIDE 40 MG TAB PO SCH (08:19)
[2017-09-01] MEDS: MIDODRINE 2.5 MG TAB PO SCH ×3 (08:19→21:00)
[2017-09-01] MEDS: METOPROLOL TARTRATE 50 MG TAB PO SCH ×2 (08:19→17:28)
[2017-09-01] MEDS: ALLOPURINOL 300 MG TAB PO SCH (08:20)
[2017-09-01 08:31] VITALS: BP 137/62
[2017-09-01] MEDS: ACETAMINOPHEN 325 MG TAB PO PRN (09:14)
[2017-09-01 09:26] LABS: HEMATOCRIT 23.9 % (38.2-49.6); HEMOGLOBIN 7.8 g/dL (14.0-18.0); MEAN CORPUSCULAR HEMOGLOBIN 30.7 pg (28-32); MEAN CORPUSCULAR HGB CONC 32.6 g/dL (31-35); MEAN CORPUSCULAR VOLUME 94.1 fL (81-99); PLATELET COUNT 135 x10e3/uL (140-360); RED BLOOD COUNT 2.54 x10e6/uL (4.3-5.7); RED CELL DISTRIBUTION WIDTH 18.6 % (11.7-14.4)
[2017-09-01 09:51] LABS: ANION GAP 14.7 mmol/L (8-16); CALCIUM 8.5 mg/dL (8.4-10.2); CREATININE, SERUM 1.17 mg/dL (0.72-1.25); POTASSIUM 3.7 mmol/L (3.5-5.1)
[2017-09-01 09:57] LABS: INR 1.48; PROTHROMBIN TIME 18.7 seconds (11.9-14.5)
[2017-09-01 09:58] LABS: PARTIAL THROMBOPLASTIN TIME 55.2 seconds (23.8-35.5)
[2017-09-01] MEDS ORDERED: ACETAMINOPHEN 325 MG TAB PO STA (11:36)
[2017-09-01] MEDS ORDERED: FUROSEMIDE INJ 10 MG/ML 2 ML VIAL IV ONE ×2 (11:45→22:17)
[2017-09-01 12:19] VITALS: BP 129/60
[2017-09-01] MEDS ORDERED: SODIUM CHLORIDE 0.9% 250ML 250 ML IV ONE (12:30)
[2017-09-01] MEDS: FOLIC ACID 1 MG TAB PO SCH (15:34)
--- NOTE | 2017-09-01 15:50 | Progress Note ---
DATE: September 01, 2017 INTERNAL MEDICINE PROGRESS NOTE SUBJECTIVE: He is feeling better today. PHYSICAL EXAMINATION VITAL SIGNS: Blood pressure 129/60. Temperature is 96.5 degrees Fahrenheit. Heart rate 85 per minute. Respiratory rate 16 per minute. Oxygen saturation 99%. HEART: Irregularly irregular heart rate. Normal S1 and S2 sounds. LUNGS: Clear bilaterally. ABDOMEN: Soft. He has a colostomy in place which showed black contents coming from the inside. He has a suprapubic tube, also. EXTREMITIES: No evidence of cyanosis, edema or trauma. LABS: BMP: Sodium 138, potassium 3.7, chloride 104, CO2 23, BUN 52, creatinine 1.17, glucose 172. CBC showed white blood count 7.48, hemoglobin 7.8, hematocrit 23.9, platelet count 135,000. PT 18.7. INR 1.48. PTT 55.2. AST 13, ALT 16, total bilirubin 0.5, alkaline phosphatase 252. FINAL IMPRESSION 1. Coumadin toxicity with resultant coagulopathy secondary to Coumadin. 2. Acute anemia secondary to epistaxis, most likely gastrointestinal bleed. 3. Chronic atrial fibrillation. 4. Essential hypertension. 5. Status post osteomyelitis of the right foot. 6. Hypothyroidism. 7. Status post colostomy. 8. Benign prostate hypertrophy, status post suprapubic tube placement. PLAN OF TREATMENT 1. Patient has received blood transfusion. Hemoglobin is 7.8. 1. Continue Zosyn q.8 h. as he is waiting for a alf. 2. Protonix drip. 3. Zofran 4 mg IV q.4 h. as needed for vomiting. 4. Metoprolol 100 mg twice a day. 5. Doxycycline 100 mg twice a day. 6. Continue monitoring blood sugar a.c. and at bedtime. 7. Continue midodrine 2.5 mg 3 times a day. 8. BuSpar 5 mg q.8 h. as needed for anxiety. 9. Allopurinol 300 mg daily. 10. He was also ciprofloxacin at the alf 250 mg q.12 h. p.o. 11. Tylenol 650 mg q.4 h. as needed. 12. Furosemide 20 mg daily. 13. Levothyroxine [address] Jackson has been consulted from the hematology point of view, Dr. Adam from infectious disease point of view, Dr. Medhat Villaseñor for cardiology point of view, Dr. Facundo Beckwith from gastroenterology point of view. 15. Stool guaiac, iron, TIBC, ferritin, vitamin B12, folic acid level have been ordered as part of the workup for anemia. Followup with CBC and BMP tomorrow. Job#: [id number]
[2017-09-01 16:00] VITALS: BP 118/54
--- NOTE | 2017-09-01 17:01 | Consultation ---
DATE OF CONSULTATION: September 01, 2017 ATTENDING PHYSICIAN: Dr. Jevon Beckwith. Thank so much for asking us to see this nice man again in consultation. Mr. Sanches is a very complex and very elderly 82-year-old man who is brought from [facility] due to problems of nosebleed and gastrointestinal blood loss. He was found to be over-anticoagulated. HISTORY OF PRESENT ILLNESS: He has been recently hospitalized at [facility] after he had a partial amputation of his foot for osteomyelitis. PAST MEDICAL HISTORY: Significant for longstanding chronic atrial fibrillation. He has congestive heart failure. EF in the 40s. He had a past colostomy secondary to colitis. He had a left total knee replacement in 1989, a right total knee in 1991. Colostomy was done in 1982. Remote back surgery. He is felt to have sleep apnea but does not use CPAP. PREHOSPITAL MEDICATIONS: Please see the chart. PHYSICAL EXAMINATION GENERAL: Exam at this time shows an elderly white man who is awake and alert, wearing a neck pillow. VITALS: Blood pressure 129/60, pulse 80 and irregularly irregular. HEENT: Otherwise relatively unremarkable. NECK: Thick. THORAX: Heart sounds S1 and S2 are equal but irregularly irregular. No distinct murmur. Lungs are relatively clear. ABDOMEN: Protuberant with a colostomy in the left lower quadrant. EXTREMITIES: No cyanosis, clubbing or edema. He has an indwelling Perez catheter. LABS: Presenting prothrombin time was 45.2 seconds with an INR of 4.5. Presenting CBC showed hemoglobin 8.8, but declined to 5.9 in the 1st day. Patient has been transfused since that time, and Coumadin has been held. ASSESSMENT 1. Over-anticoagulation. 2. Epistaxis. 3. Gastrointestinal blood loss. 4. Anemia. 5. Recent partial foot amputation. PLAN: Agree with continued withholding of anticoagulation. Will reassess after blood loss has stopped and hemoglobin and hematocrit are stable. Cardiovascular status clinically stable at this time with chronic atrial fibrillation. Thank you for asking us to see him in consultation. Job#: [id number] cc:MD ASCENCION MILLER MD MOHAMMED QURAISHI, MD ZAHER SHEBIB, MD
--- NOTE | 2017-09-01 17:53 | Consultation ---
DATE OF CONSULTATION: September 01, 2017 ATTENDING PHYSICIAN: Dr. Beckwith HISTORY OF PRESENT ILLNESS: This is an 82-year-old white male who has history of chronic atrial fibrillation, amputation of the right big toe, osteomyelitis, suprapubic catheter, benign prostatic hypertrophy, colostomy, history of colitis. He comes into the hospital for a decubitus ulcer. Patient was at [facility] with a stage-4 ulcer. He was on IV antibiotic and clinical care. He presented here. Apparently, the INR was elevated. His hemoglobin was low. He was transferred here for further workup. The patient does not provide any meaningful information. PAST MEDICAL HISTORY: As above. Atrial fibrillation, amputation of the right big toe, colostomy, benign prostatic hypertrophy, suprapubic catheter. ALLERGIES: NKA. SOCIAL HISTORY: No smoking, drug abuse or alcohol abuse. He is from the long-term. FAMILY HISTORY: Could not be obtained. REVIEW OF SYSTEMS: Could not be obtained. PHYSICAL EXAMINATION GENERAL: He is alert and confused, does not seem in acute distress. VITAL SIGNS: Stable, currently afebrile. HEENT: Not icteric. NECK: Supple. CHEST: Clear bilateral. COR: No murmur. ABDOMEN: Soft. Bowel sounds present. No tenderness. EXTREMITIES: No edema. A decubitus ulcer was noted. IMPRESSION 1. Decubitus ulcer/osteomyelitis. 2. Anemia, probably secondary to loss. He was on doxycycline and Cipro. He was started on Zosyn while he was here. Continue the Zosyn while he is in the hospital. Continue with wound care, local care. Will discuss with the attending. Will follow with you. Thank you. Job#: [id number]
[2017-09-01 20:00] VITALS: BP 119/76
--- NOTE | 2017-09-01 20:09 | Diagnostic Imaging Report ---
CHEST XRAY LINE PLACEMENT, 09/01/2017 7:17 PM Technique: CHEST XRAY LINE PLACEMENT Comparison: None available. Clinical history: PICC line placement Findings: See Impression. Left costophrenic angle partially excluded. Prior midthoracic vertebroplasty noted. Impression: 1. Lines/Tubes: Left PICC line tip overlies the brachiocephalic vein SVC junction. Consider advancement 3 cm. 2. Mildly enlarged cardiomediastinal silhouette, likely accentuated by technique. 3. Mild left basilar atelectasis. No significant effusion. No pneumothorax.. Signed by: Dr Laura Pearson MD on 09/01/2017 8:06 PM
[2017-09-01] MEDS: NEOMYCIN/POLYMYXIN/BACITRACIN 15 GM TUBE TOP SCH (21:00)
--- NOTE | 2017-09-01 21:45 | Diagnostic Imaging Report ---
CHEST XRAY LINE PLACEMENT, 09/01/2017 9:10 PM Technique: CHEST XRAY LINE PLACEMENT Comparison: None available. Clinical history: PICC line placement Findings: See Impression. Note is made of prior mid thoracic vertebroplasty. Severe glenohumeral degenerative changes. Impression: Limited by motion and portable technique. 1. Lines/Tubes: Left PICC line tip overlies the SVC. 2. Stable cardiac silhouette. 3. Mild left basilar atelectasis. No effusion or pneumothorax. Signed by: Dr Laura Pearson MD on 09/01/2017 9:41 PM
[2017-09-01] MEDS ORDERED: SODIUM CHLORIDE 0.9% 250ML 250 ML ONE (22:45)
[2017-09-02] VITALS: BP_SYST 125; BP_SYST 135; BP_DIAS 75; BP_DIAS 94
[2017-09-02] MEDS: BUSPIRONE HCL 5 MG TAB PO PRN ×2 (02:02→22:41)
[2017-09-02] MEDS: PANTOPRAZOL 40MG/SOD CHL 0.9% 50 ML IV SCH ×5 (03:38→21:34)
[2017-09-02 04:00] VITALS: BP 136/66
[2017-09-02] MEDS ORDERED: SODIUM CHLORIDE 0.9% 250ML 250 ML ONE (05:42)
[2017-09-02] MEDS: PIPER-TAZ 3.375 GM 50 ML IV SCH ×3 (05:59→21:33)
[2017-09-02] MEDS: LEVOTHYROXINE SODIUM 100 MCG TAB PO SCH (06:00)
[2017-09-02] MEDS: DOXYCYCLINE HYCLATE TABLET 100 MG TAB PO SCH (06:00)
[2017-09-02] MEDS: CIPROFLOXACIN 500 MG TAB PO SCH (06:00)
[2017-09-02 07:13] LABS: BASOPHILS % 0.5 % (0.0-1.0); EOSINOPHILS # (AUTO) 0.1 (0.0-0.4); HEMATOCRIT 27.7 % (38.2-49.6); HEMOGLOBIN 9.1 g/dL (14.0-18.0); LYMPHOCYTES # (AUTO) 1.1 (1.0-3.2); LYMPHOCYTES % 17.5 % (18.0-39.1); MEAN CORPUSCULAR HEMOGLOBIN 30.5 pg (28-32); MEAN CORPUSCULAR HGB CONC 32.9 g/dL (31-35); MONOCYTES # (AUTO) 1.5 (0.2-0.8); MONOCYTES % 24.1 % (4.4-11.3); NEUTROPHILS # (AUTO) 2.6 (2.1-6.9); NEUTROPHILS % 43.5 % (38.7-80.0); PLATELET COUNT 146 x10e3/uL (140-360); RED BLOOD COUNT 2.98 x10e6/uL (4.3-5.7)
[2017-09-02] MEDS: INSULIN REGULAR, HUMAN 100 UNIT/1 ML 3ML VIAL SQ SCH ×4 (07:30→20:45)
[2017-09-02 07:45] LABS: ANION GAP 15.4 mmol/L (8-16); CALCIUM 8.9 mg/dL (8.4-10.2); CREATININE, SERUM 1.16 mg/dL (0.72-1.25); POTASSIUM 3.4 mmol/L (3.5-5.1)
[2017-09-02 08:00] VITALS: BP 145/109
[2017-09-02 08:51] LABS: EOSINOPHILS % (MANUAL) 3 % (0-7); LYMPHOCYTES % (MANUAL) 18 % (19-48); METAMYELOCYTES % (MANUAL) 6 % (0-0); MONOCYTES % (MANUAL) 21 % (3.4-9.0); MYELOCYTES % (MANUAL) 3 % (0-0); NEUTROPHILS % (MANUAL) 45 % (40-74); PROMYELOCYTES % (MANUAL) 2 % (0-0)
[2017-09-02 08:52] LABS: ANISOCYTOSIS SLIGHT; HYPOCHROMASIA SLIGHT; PLATELET ESTIMATE SLIGHTLY DECREASED; PLATELET MORPHOLOGY COMMENT FEW LARGE; RBC MORPHOLOGY COMMENT NORMAL
[2017-09-02] MEDS: ALLOPURINOL 300 MG TAB PO SCH (09:00)
[2017-09-02] MEDS: FOLIC ACID 1 MG TAB PO SCH (09:00)
[2017-09-02] MEDS: MIDODRINE 2.5 MG TAB PO SCH ×3 (09:00→21:00)
[2017-09-02] MEDS: METOPROLOL TARTRATE 50 MG TAB PO SCH ×2 (09:20→17:30)
[2017-09-02] MEDS: FUROSEMIDE 40 MG TAB PO SCH (09:20)
[2017-09-02 12:00] VITALS: BP 117/66
[2017-09-02 16:00] VITALS: BP 151/87
[2017-09-02] MEDS: VERAPAMIL HCL 120 MG TABSR PO SCH (17:00)
[2017-09-02 20:00] VITALS: BP 133/77
[2017-09-02] MEDS: NEOMYCIN/POLYMYXIN/BACITRACIN 15 GM TUBE TOP SCH (21:00)
[2017-09-02] MEDS: SALINE 0.65% NAS SOLN 1 SPRAY BTL SCH (21:55)
[2017-09-02] MEDS: ACETAMINOPHEN 325 MG TAB PO PRN (23:43)
[2017-09-03] VITALS: BP 115/72
--- NOTE | 2017-09-03 00:36 | Consultation ---
DATE OF CONSULTATION: September 02, 2017 HISTORY OF PRESENT ILLNESS: I was kindly asked to see this pleasant 82-year-old man for evaluation of epistaxis. Patient reports frequent epistaxis as a child, but had none as an adult until approximately 6 months ago when he developed intermittent bilateral epistaxis, worst on the right side. He reports no major nosebleeds until his recent difficulties with increased INR from Coumadin. He reports his INR has become therapeutic. He has had no further episodes of epistaxis. His history of present illness, past medical history and past surgical history were all reviewed in detail in the chart. PHYSICAL EXAMINATION: The tympanic membranes and external auditory canals were normal. He had a mildly shaped nasal septal deviation. There was vasodilation present in the anterior nasal septum bilaterally. On fiberoptic diagnostic rhinoscopy, no additional bleeding points were identified and the paranasal sinuses appeared quiescent. Oral cavity and pharyngeal examination were unremarkable. There was no palpable cervical adenopathy. Bleeding points on the anterior nasal septum were cauterized with silver nitrate bilaterally. ASSESSMENT 1. Epistaxis. 2. Nasal septal deviation. 3. Status post silver nitrate cautery of bleeding points bilaterally. PLAN 1. Universal nasal spray 2 puffs each side of nose q.4 h. while awake. 1. Bacitracin ointment to each nostril t.i.d. Thank you very much. Job#: [id number] DIANE
[2017-09-03] MEDS: PANTOPRAZOL 40MG/SOD CHL 0.9% 50 ML IV SCH ×4 (02:38→22:13)
[2017-09-03 04:00] VITALS: BP 129/83
[2017-09-03] MEDS: BUSPIRONE HCL 5 MG TAB PO PRN (05:42)
[2017-09-03] MEDS: SALINE 0.65% NAS SOLN 1 SPRAY BTL SCH ×5 (06:05→21:57)
[2017-09-03] MEDS: LEVOTHYROXINE SODIUM 100 MCG TAB PO SCH (06:05)
[2017-09-03] MEDS: PIPER-TAZ 3.375 GM 50 ML IV SCH ×3 (06:05→21:57)
[2017-09-03 07:29] LABS: INR 1.38; PROTHROMBIN TIME 17.7 seconds (11.9-14.5)
[2017-09-03 07:30] LABS: PARTIAL THROMBOPLASTIN TIME 40.9 seconds (23.8-35.5)
[2017-09-03] MEDS: INSULIN REGULAR, HUMAN 100 UNIT/1 ML 3ML VIAL SQ SCH ×4 (07:30→21:45)
[2017-09-03 08:00] VITALS: BP 118/57
[2017-09-03] MEDS: METOPROLOL TARTRATE 50 MG TAB PO SCH ×2 (09:00→17:00)
[2017-09-03] MEDS: FOLIC ACID 1 MG TAB PO SCH (09:00)
[2017-09-03] MEDS: ALLOPURINOL 300 MG TAB PO SCH (09:00)
[2017-09-03] MEDS: FUROSEMIDE 40 MG TAB PO SCH (09:00)
[2017-09-03] MEDS: VERAPAMIL HCL 120 MG TABSR PO SCH ×2 (09:00→17:00)
[2017-09-03] MEDS: MIDODRINE 2.5 MG TAB PO SCH ×3 (09:00→21:00)
[2017-09-03] MEDS: NEOMYCIN/POLYMYXIN/BACITRACIN 15 GM TUBE TOP SCH ×3 (09:10→21:58)
[2017-09-03 12:00] VITALS: BP 117/66
--- NOTE | 2017-09-03 17:02 | Operative Report ---
DATE OF PROCEDURE: September 03, 2017 REFERRING PHYSICIAN: Dr. Lonnie Mckeon. PROCEDURE PERFORMED: Esophagogastroduodenoscopy. INDICATIONS FOR ESOPHAGOGASTRODUODENOSCOPY: Anemia, melena. MEDICATION: Patient was done under MAC. Please see anesthesiologist's note. PROCEDURE: With patient in the left lateral decubitus position, flexible fiberoptic Olympus gastroscope was introduced into the esophagus under direct visualization without any difficulty. There was some patchy erythema noted in distal esophagus. The scope was then advanced with ease into the stomach. Mucosa overlying the antrum and the body revealed some diffuse erythema. Pylorus appeared to be of normal contour and shape. Was intubated with ease and the scope was advanced all the way to the 2nd portion of the duodenum. The scope was then withdrawn slowly. Mucosa overlying the proximal 2nd portion and the duodenal bulb grossly was unremarkable. The scope was then withdrawn back into the stomach and retroflexed. Mucosa overlying the fundus and the cardia appeared to be within normal limits. The scope was then straightened out. The stomach was decompressed. The scope was subsequently withdrawn. Patient tolerated the procedure well. IMPRESSION: 1. Mild distal esophagitis. 2. Gastritis. PLAN: Follow hemoglobin and hematocrit. Findings do not necessarily explain the patient's blood loss. Will proceed with GI bleed scan. Job#: [id number] GH cc:LONNIE MCKEON MD
[2017-09-03] MEDS ORDERED: PROPOFOL IV EMULSION 10 MG/ML 50 ML VIAL ONE (18:27)
[2017-09-03] MEDS ORDERED: LIDOCAINE HCL 2% LOCAL INJ 5 ML SDV VIAL INJ ONE (18:27)
[2017-09-03] MEDS: ACETAMINOPHEN 325 MG TAB PO PRN (19:48)
[2017-09-03 20:00] VITALS: BP 138/78
[2017-09-04] VITALS: BP 109/71
[2017-09-04] MEDS: PANTOPRAZOL 40MG/SOD CHL 0.9% 50 ML IV SCH ×5 (01:30→18:52)
[2017-09-04] MEDS: ACETAMINOPHEN 325 MG TAB PO PRN (01:32)
[2017-09-04] MEDS: BUSPIRONE HCL 5 MG TAB PO PRN (01:32)
[2017-09-04 04:00] VITALS: BP 104/52
[2017-09-04] MEDS: LEVOTHYROXINE SODIUM 100 MCG TAB PO SCH (06:04)
[2017-09-04] MEDS: SALINE 0.65% NAS SOLN 1 SPRAY BTL SCH ×5 (06:04→21:48)
[2017-09-04] MEDS: PIPER-TAZ 3.375 GM 50 ML IV SCH ×3 (06:04→21:47)
[2017-09-04 07:46] VITALS: BP 124/61
[2017-09-04] MEDS: INSULIN REGULAR, HUMAN 100 UNIT/1 ML 3ML VIAL SQ SCH ×4 (08:54→20:55)
[2017-09-04] MEDS: MIDODRINE 2.5 MG TAB PO SCH ×3 (08:54→21:00)
[2017-09-04] MEDS: METOPROLOL TARTRATE 50 MG TAB PO SCH ×2 (08:54→17:14)
[2017-09-04] MEDS: FOLIC ACID 1 MG TAB PO SCH (08:54)
[2017-09-04] MEDS: ALLOPURINOL 300 MG TAB PO SCH (08:54)
[2017-09-04] MEDS: FUROSEMIDE 40 MG TAB PO SCH (08:54)
[2017-09-04] MEDS: VERAPAMIL HCL 120 MG TABSR PO SCH ×2 (08:54→17:14)
[2017-09-04] MEDS: NEOMYCIN/POLYMYXIN/BACITRACIN 15 GM TUBE TOP SCH ×3 (08:54→21:00)
[2017-09-04 11:27] VITALS: BP 96/54
[2017-09-04] MEDS ORDERED: POTASSIUM CHLORIDE 20 MEQ TAB CR PO NR (11:30)
[2017-09-04 15:55] VITALS: BP 122/62
--- NOTE | 2017-09-04 18:04 | Diagnostic Imaging Report ---
Tagged-RBC GI Bleed Study Clinical information: 82-year-old male with anemia and coumadin toxicity. Discussion: The patient's own red blood cells were labeled with 27 mCi of technetium-99m pertechnetate using the in vitro method (UltraTag). Dynamic images of the abdomen were obtained through 60 minutes. Distribution of tracer activity appears physiologic throughout the abdomen. No abnormal accumulation of tracer is seen within the gastrointestinal lumen. Impression: No scan evidence of active gastrointestinal bleeding at this time. Signed by: Dr. Kaitlin Vera M.D. on 09/04/2017 6:01 PM
[2017-09-04 22:14] VITALS: BP 114/56
[2017-09-05] MEDS: PANTOPRAZOL 40MG/SOD CHL 0.9% 50 ML IV SCH ×5 (00:11→20:43)
[2017-09-05 00:53] VITALS: BP 104/61
[2017-09-05 04:00] VITALS: BP 151/52
[2017-09-05] MEDS: PIPER-TAZ 3.375 GM 50 ML IV SCH ×3 (05:10→21:08)
[2017-09-05] MEDS: SALINE 0.65% NAS SOLN 1 SPRAY BTL SCH ×4 (05:11→21:07)
[2017-09-05] MEDS: LEVOTHYROXINE SODIUM 100 MCG TAB PO SCH (05:11)
[2017-09-05 07:36] LABS: BASOPHILS % 0.4 % (0.0-1.0); EOSINOPHILS # (AUTO) 0.1 (0.0-0.4); EOSINOPHILS % 1.1 % (0.0-6.0); HEMATOCRIT 27.2 % (38.2-49.6); HEMOGLOBIN 8.6 g/dL (14.0-18.0); LYMPHOCYTES # (AUTO) 1.4 (1.0-3.2); LYMPHOCYTES % 14.2 % (18.0-39.1); MEAN CORPUSCULAR HEMOGLOBIN 30.4 pg (28-32); MEAN CORPUSCULAR HGB CONC 31.6 g/dL (31-35); MEAN CORPUSCULAR VOLUME 96.1 fL (81-99); MONOCYTES # (AUTO) 1.9 (0.2-0.8); MONOCYTES % 19.9 % (4.4-11.3); NEUTROPHILS % 51.1 % (38.7-80.0); PLATELET COUNT 155 x10e3/uL (140-360); RED BLOOD COUNT 2.83 x10e6/uL (4.3-5.7); RED CELL DISTRIBUTION WIDTH 16.7 % (11.7-14.4)
[2017-09-05 07:48] VITALS: BP 114/69
[2017-09-05 07:48] LABS: ANION GAP 13.8 mmol/L (8-16); CALCIUM 8.2 mg/dL (8.4-10.2); CREATININE, SERUM 1.64 mg/dL (0.72-1.25); POTASSIUM 3.8 mmol/L (3.5-5.1)
[2017-09-05] MEDS ORDERED: IRON DEXTRAN INJ 500 MG in SODIUM CHLORIDE 0.9% 500ML 500 ML IV PRN (08:30)
[2017-09-05] MEDS ORDERED: FAMOTIDINE INJ 20 MG in SODIUM CHLORIDE 0.9% 50ML 50 ML IV ONE ×2 (08:30→08:45)
[2017-09-05] MEDS ORDERED: IRON DEXTRAN INJ 50 MG in SODIUM CHLORIDE 0.9% 100 ML IV ONE (08:30)
[2017-09-05] MEDS ORDERED: DEXAMETHASONE PHOS 10MG INJ 20 MG in SODIUM CHLORIDE 0.9% 50ML 50 ML IV ONE (08:30)
[2017-09-05] MEDS ORDERED: DIPHENHYDRAMINE HCL INJ 25 MG in SODIUM CHLORIDE 0.9% 50ML 50 ML IV ONE ×2 (08:30→08:45)
[2017-09-05 08:52] LABS: INR 1.44; PROTHROMBIN TIME 18.3 seconds (11.9-14.5)
[2017-09-05] MEDS: FOLIC ACID 1 MG TAB PO SCH (09:00)
[2017-09-05] MEDS: INSULIN REGULAR, HUMAN 100 UNIT/1 ML 3ML VIAL SQ SCH ×4 (09:00→20:47)
[2017-09-05] MEDS: METOPROLOL TARTRATE 50 MG TAB PO SCH ×2 (09:00→17:00)
[2017-09-05] MEDS: ALLOPURINOL 300 MG TAB PO SCH (09:00)
[2017-09-05] MEDS: MIDODRINE 2.5 MG TAB PO SCH ×3 (09:00→20:43)
[2017-09-05 10:51] LABS: BAND NEUTROPHILS % (MANUAL) 1 %; HYPOCHROMASIA SLIGHT; LYMPHOCYTES % (MANUAL) 18 % (19-48); METAMYELOCYTES % (MANUAL) 3 % (0-0); MONOCYTES % (MANUAL) 16 % (3.4-9.0); MYELOCYTES % (MANUAL) 4 % (0-0); NEUTROPHILS % (MANUAL) 56 % (40-74); PLATELET ESTIMATE ADEQUATE; PLATELET MORPHOLOGY COMMENT NORMAL; PROMYELOCYTES % (MANUAL) 2 % (0-0); RBC MORPHOLOGY COMMENT NORMAL
[2017-09-05 11:34] VITALS: BP 100/75
[2017-09-05] MEDS: FUROSEMIDE 40 MG TAB PO SCH (11:43)
[2017-09-05] MEDS ORDERED: SODIUM CHLORIDE 0.9% 250ML 250 ML ONE ×2 (14:24→20:17)
[2017-09-05] MEDS: NEOMYCIN/POLYMYXIN/BACITRACIN 15 GM TUBE TOP SCH ×3 (14:31→21:07)
[2017-09-05 15:50] VITALS: BP 117/76
[2017-09-05] MEDS ORDERED: WARFARIN SOD 2.5 MG TAB PO SCH (17:00)
[2017-09-05] MEDS: VERAPAMIL HCL 80 MG TAB PO SCH (17:00)
[2017-09-05] MEDS ORDERED: VERAPAMIL HCL 120 MG TABSR PO SCH (17:00)
[2017-09-05 20:00] VITALS: BP 143/73
[2017-09-05] MEDS ORDERED: INSULIN DETEMIR 100 UNIT/ML PEN SQ SCH (22:00)
[2017-09-06 00:30] VITALS: BP 183/76
[2017-09-06 01:28] VITALS: BP 158/63
[2017-09-06] MEDS: PANTOPRAZOL 40MG/SOD CHL 0.9% 50 ML IV SCH ×3 (02:15→13:00)
[2017-09-06 04:05] VITALS: BP 131/94
[2017-09-06] MEDS: PIPER-TAZ 3.375 GM 50 ML IV SCH ×2 (05:07→15:00)
[2017-09-06] MEDS: LEVOTHYROXINE SODIUM 100 MCG TAB PO SCH (05:08)
[2017-09-06] MEDS: SALINE 0.65% NAS SOLN 1 SPRAY BTL SCH ×3 (05:08→14:00)
[2017-09-06 07:43] VITALS: BP 133/92
[2017-09-06] MEDS: INSULIN REGULAR, HUMAN 100 UNIT/1 ML 3ML VIAL SQ SCH ×2 (07:45→12:05)
[2017-09-06] MEDS: VERAPAMIL HCL 80 MG TAB PO SCH (08:30)
[2017-09-06] MEDS: MIDODRINE 2.5 MG TAB PO SCH (08:30)
[2017-09-06] MEDS: ALLOPURINOL 300 MG TAB PO SCH (08:30)
[2017-09-06] MEDS: METOPROLOL TARTRATE 50 MG TAB PO SCH (08:30)
[2017-09-06] MEDS: FOLIC ACID 1 MG TAB PO SCH (08:30)
[2017-09-06] MEDS: NEOMYCIN/POLYMYXIN/BACITRACIN 15 GM TUBE TOP SCH (09:30)
[2017-09-06] MEDS: FUROSEMIDE 40 MG TAB PO SCH (11:00)
[2017-09-06 13:00] VITALS: BP 136/60
[2017-09-06] MEDS ORDERED: BALSAM PERU/CASTOR OIL 60 GM OINT...G. TP SCH (17:00)
[2017-09-06 17:03] VITALS: BP 131/56
[2017-09-07] MEDS ORDERED: MUPIROCIN 2% OINT 22 GM TUBE TOP SCH (09:00)
== END 2017-09-06 19:11 | DRG 377 ==
LOC: ER 11:53 → ERHOLD 13:33 → MED/SURG3 14:56
DX: K92.0 Hematemesis (principal); L89.894 Pressure ulcer of other site, stage 4; L89.151 Pressure ulcer of sacral region, stage 1; I13.0 Hypertensive heart and chronic kidney disease with heart failure and stage 1 through stage 4 chronic kidney disease, or unspecified chronic kidney disease; E11.22 Type 2 diabetes mellitus with diabetic chronic kidney disease; E11.621 Type 2 diabetes mellitus with foot ulcer; I50.9 Heart failure, unspecified; G20 Parkinson's disease; I42.9 Cardiomyopathy, unspecified; D62 Acute posthemorrhagic anemia; K51.90 Ulcerative colitis, unspecified, without complications; E53.8 Deficiency of other specified B group vitamins; I48.2 Chronic atrial fibrillation; T45.515A Adverse effect of anticoagulants, initial encounter; Y92.009 Unspecified place in unspecified non-institutional (private) residence as the place of occurrence of the external cause; R04.0 Epistaxis; Z89.411 Acquired absence of right great toe; N40.0 Benign prostatic hyperplasia without lower urinary tract symptoms; Z93.6 Other artificial openings of urinary tract status; K20.9 Esophagitis, unspecified; K29.70 Gastritis, unspecified, without bleeding; Z79.4 Long term (current) use of insulin; E03.9 Hypothyroidism, unspecified; I89.0 Lymphedema, not elsewhere classified; E66.9 Obesity, unspecified; Z68.30 Body mass index [BMI] 30.0-30.9, adult; L97.509 Non-pressure chronic ulcer of other part of unspecified foot with unspecified severity; N18.9 Chronic kidney disease, unspecified; Z79.01 Long term (current) use of anticoagulants; Z79.52 Long term (current) use of systemic steroids; Z93.3 Colostomy status; I27.20 Pulmonary hypertension, unspecified
CPT/HCPCS: 36415; 36430; 36584; 71010; 78278; 80048; 80053; 81001; 82270; 82607; 82728; 82746; 82948; 83540; 84466; 85007; 85025; 85027; 85610; 85730; 86850; 86900; 86920; 87086; 93005; 96366; 97139; 99284; A9512; J1100; J1200; J1750; J1940; J2001; J2405; J2543; J7030; J7040; J7050; P9016; P9017

== ENCOUNTER 2017-10-09 18:35 | Emergency (ER) | payer MEDICARE ==
[~2017-10-09] VITALS: Ht 180.3 cm; Wt 98.0 kg
[~2017-10-09 18:35] MED LIST changes: +ACETAMINOPHEN650 MG PO; +ZOSYN 3.373.375 GM/5 IVP
[2017-10-09 20:55] LABS: BASOPHILS % 0.3 % (0.0-1.0); EOSINOPHILS % 0.1 % (0.0-6.0); HEMATOCRIT 30.9 % (38.2-49.6); HEMOGLOBIN 9.9 g/dL (14.0-18.0); LYMPHOCYTES # (AUTO) 0.5 (1.0-3.2); LYMPHOCYTES % 3.4 % (18.0-39.1); MEAN CORPUSCULAR HEMOGLOBIN 30.9 pg (28-32); MEAN CORPUSCULAR VOLUME 96.6 fL (81-99); MONOCYTES # (AUTO) 1.3 (0.2-0.8); MONOCYTES % 8.4 % (4.4-11.3); NEUTROPHILS # (AUTO) 12.5 (2.1-6.9); NEUTROPHILS % 79.6 % (38.7-80.0); PLATELET COUNT 147 x10e3/uL (140-360); RED CELL DISTRIBUTION WIDTH 18.1 % (11.7-14.4)
[2017-10-09 21:10] LABS: ALBUMIN 2.6 g/dL (3.5-5.0); ALBUMIN/GLOBULIN RATIO 0.7 (0.8-2.0); ANION GAP 17.4 mmol/L (8-16); CALCIUM 8.8 mg/dL (8.4-10.2); CREATININE, SERUM 2.03 mg/dL (0.72-1.25); POTASSIUM 4.4 mmol/L (3.5-5.1)
--- NOTE | 2017-10-09 21:29 | Diagnostic Imaging Report ---
CHEST SINGLE (PORTABLE), 10/09/2017 7:30 PM Technique: CHEST SINGLE (PORTABLE) Comparison: 09/01/2017 Clinical history: Weakness Findings: Heart/mediastinum: Stable Lungs/pleural spaces: No consolidation or edema. No effusion or pneumothorax. Bones: Severe glenohumeral degenerative change. Mid thoracic vertebroplasty. Impression: 1. Lines/Tubes: None 2. No acute abnormality. Signed by: Dr Laura Pearson MD on 10/09/2017 9:25 PM
[2017-10-09 22:42] LABS: BILIRUBIN,URINE NEGATIVE (NEGATIVE); KETONES,URINE NEGATIVE (NEGATIVE); LEUKOCYTE ESTERASE ,URINE 2+ (NEGATIVE); URINE UROBILINOGEN 0.2 mg/dL (0.2 - 1)
[2017-10-09 22:43] LABS: CLARITY,URINE TURBID (CLEAR); COLOR,URINE AMBER (YELLOW); NITRITE,URINE POSITIVE (NEGATIVE); PROTEIN,URINE DIPSTICK 2+ (NEGATIVE)
[2017-10-09 22:52] LABS: BACTERIA,URINE MANY /HPF; EPITHELIAL CELLS,URINE FEW /LPF; RBC,URINE >50 /HPF (0-5); WBC,URINE (MAN) >50 /HPF (0-5)
[2017-10-09] MEDS ORDERED: CEFTRIAXONE SOD 1 GM VIAL IV STA (23:31)
== END 2017-10-10 00:57 | disposition home or self-care (01) ==
LOC: ER 18:35
DX: Z46.6 Encounter for fitting and adjustment of urinary device (principal); N30.21 Other chronic cystitis with hematuria; I10 Essential (primary) hypertension; E11.9 Type 2 diabetes mellitus without complications; I50.9 Heart failure, unspecified; E03.9 Hypothyroidism, unspecified; I48.91 Unspecified atrial fibrillation
CPT/HCPCS: 36415; 71010; 80053; 81001; 83605; 85025; 87086; 87186; 96374; 99284; J0696

== ENCOUNTER 2017-11-18 07:04 | Inpatient (IN) | payer MEDICARE ==
[~2017-11-18] VITALS: Ht 177.8 cm; Wt 111.6 kg
[2017-11-18] MEDS ORDERED: CALCIUM 500+D1 EACH PO (07:19)
[2017-11-18] MEDS ORDERED: BUSPIRONE HCL5 MG PO (07:19)
[2017-11-18] MEDS ORDERED: FLUCONAZOLE100 MG PO (07:25)
[2017-11-18] MEDS ORDERED: FERROUS SULFAT325 M1 PO (07:25)
[2017-11-18] MEDS ORDERED: OMEPRAZOLE40 MG PO (07:25)
[2017-11-18] MEDS ORDERED: FOLIC ACID1 MG PO (07:25)
[2017-11-18] MEDS ORDERED: MELATONIN3 MG PO (07:25)
[2017-11-18] MEDS ORDERED: VERAPAMIL ER120 MG PO (07:29)
[2017-11-18] MEDS ORDERED: MAGNESIUM OXID400 MG PO (07:29)
[2017-11-18 07:47] LABS: BASOPHILS % 0.3 % (0.0-1.0); EOSINOPHILS % 0.6 % (0.0-6.0); HEMATOCRIT 22.5 % (38.2-49.6); HEMOGLOBIN 7.4 g/dL (14.0-18.0); LYMPHOCYTES # (AUTO) 1.5 (1.0-3.2); LYMPHOCYTES % 21.3 % (18.0-39.1); MEAN CORPUSCULAR HEMOGLOBIN 31.2 pg (28-32); MEAN CORPUSCULAR HGB CONC 32.9 g/dL (31-35); MEAN CORPUSCULAR VOLUME 94.9 fL (81-99); MONOCYTES # (AUTO) 0.9 (0.2-0.8); MONOCYTES % 13.1 % (4.4-11.3); NEUTROPHILS # (AUTO) 3.2 (2.1-6.9); NEUTROPHILS % 44.5 % (38.7-80.0); PLATELET COUNT 139 x10e3/uL (140-360); RED BLOOD COUNT 2.37 x10e6/uL (4.3-5.7); RED CELL DISTRIBUTION WIDTH 17.8 % (11.7-14.4)
[2017-11-18 08:12] LABS: INR 10.96; PARTIAL THROMBOPLASTIN TIME 120.4 seconds (23.8-35.5); PROTHROMBIN TIME 80.5 seconds (11.9-14.5)
[2017-11-18] MEDS ORDERED: SODIUM CHLORIDE 0.9% 250ML 250 ML IV ONE (08:45)
[2017-11-18 09:34] LABS: ALBUMIN 2.2 g/dL (3.5-5.0); ALBUMIN/GLOBULIN RATIO 0.7 (0.8-2.0); ANION GAP 16.5 mmol/L (8-16); CALCIUM 7.7 mg/dL (8.4-10.2); CREATININE, SERUM 1.4 mg/dL (0.72-1.25); POTASSIUM 3.5 mmol/L (3.5-5.1)
--- NOTE | 2017-11-18 09:43 | Diagnostic Imaging Report ---
PROCEDURE: A single AP view of the chest. COMPARISON: Portable chest 10/09/2017. INDICATIONS: SOB, NOSE BLEED FINDINGS: Lines/tubes: None. Lungs: The lungs are well inflated and clear. There is no evidence of pneumonia or pulmonary edema. Pleura: There is no pleural effusion or pneumothorax. Heart and mediastinum: The heart and the mediastinum are unremarkable. Atherosclerotic calcifications. Bones: No acute bony abnormality. Kyphoplasty changes of the thoracic spine. IMPRESSION: No acute radiographic abnormality. Dictated by: Patrick Oliver M.D. on 11/18/2017 at 9:42 Electronically approved by: Patrick Oliver M.D. on 11/18/2017 at 9:42
[2017-11-18 10:55] LABS: BAND NEUTROPHILS % (MANUAL) 6 %; EOSINOPHILS % (MANUAL) 1 % (0-7); LYMPHOCYTES % (MANUAL) 26 % (19-48); MONOCYTES % (MANUAL) 9 % (3.4-9.0); NEUTROPHILS % (MANUAL) 54 % (40-74)
[2017-11-18 10:58] LABS: ANISOCYTOSIS MODERATE; HYPOCHROMASIA MODERATE; POIKILOCYTOSIS SLIGHT; RBC MORPHOLOGY COMMENT ABNORMAL
[2017-11-18 10:59] LABS: PLATELET ESTIMATE SLIGHTLY DECREASED; PLATELET MORPHOLOGY COMMENT FEW LARGE
--- OUTSIDE RECORDS SUMMARY | 2017-11-18 12:13 | XMS REPORT ---
Author Author [facility] Address Unknown Phone Unavailable Care Team Providers Care Compliance Engineer Name Role Phone ANTONIO RODRIGUEZ Unavailable Unavailable MORTON, JOLENE Unavailable Unavailable MCKEON, SOUHEIL Unavailable Unavailable RIGOBERTO, MOHAMMED Unavailable Unavailable JEANG, OLESYA Unavailable Unavailable Problems This patient has no known problems. Allergies, Adverse Reactions, Alerts This patient has no known allergies or adverse reactions. Medications This patient has no known medications. Results Test Description Test Time Test Comments Text Results Atomic Results Result Comments CHEST SINGLE (PORTABLE) [place] [address] Patient Name: SINDY MALDONADO MR #: [id number] : 1935 Age/Sex: 82/M Req #: [id number] Adm Physician: Ordered by: ANTONIO RODRIGUEZ MD Report #: [id number] Location: ER Room/Bed: Procedure: [id number] DX/CHEST SINGLE (PORTABLE) Exam Date: 11/18/17 Exam Time: 0820 REPORT STATUS: Signed PROCEDURE: A single AP view of the chest. COMPARISON: Portable chest 10/09/2017. INDICATIONS: SOB, NOSE BLEED FINDINGS: Lines/tubes: None. Lungs: The lungs are well inflated and clear. There is no evidence of pneumonia or pulmonary edema. Pleura: There is no pleural effusion or pneumothorax. Heart and mediastinum: The heart and the mediastinum are unremarkable. Atherosclerotic calcifications. Bones: No acute bony abnormality. Kyphoplasty changes of the thoracic spine. IMPRESSION: No acute radiographic abnormality. Dictated by: iSndy Rodriguez M.D. on 11/18/2017 at 9:42 Electronically approved by: Sindy Rodriguez M.D. on 01/2018 at 9:42 Dictated By: SINDY RODRIGUEZ MD 1 Transcribed By: NILS on 11/18/17941 COPY TO: ANTONIO RODRIGUEZ MD CHEST SINGLE (PORTABLE) [place] [address] Patient Name: SINDY MALDONADO MR #: [id number] : 1935 Age/Sex: 82/M Req #: [id number] Adm Physician: Ordered by: RIVER XIONG MD Report #: [id number] Location: ER Room/Bed: ___ Procedure: [id number] DX/CHEST SINGLE (PORTABLE) Exam Date: 10/09/17 Exam Time: 1999 REPORT STATUS: Signed CHEST SINGLE (PORTABLE), 10/09/2017 7:30 PM Technique: CHEST SINGLE (PORTABLE) Comparison: 09/01/2017 Clinical history: Weakness Findings: Heart/ mediastinum: Stable Lungs/pleural spaces: No consolidation or edema. No effusion or pneumothorax. Bones: Severe glenohumeral degenerative change. Mid thoracic vertebroplasty. Impression: 1. Lines/Tubes: None 2. No acute abnormality. Signed by: Dr Sarita Ruano MD on 10/09/2017 9:25 PM Dictated By: SARITA RUANO MD 24 Transcribed By: TONIO on 10/09/172124 COPY TO: RIVER XIONG MD G I BLEED [place] [address] Patient Name: SINDY MALDONADO MR #: [id number] : 1935 Age/Sex: 82/M Req #: [id number] Adm Physician: DELMIS MCKEON MD Ordered by: ASCENCION MCKEON MD Report #: [id number] Location: MED/SURG3 Room/Bed: [facility] [place] _ Procedure: [id number] NM/G I BLEED Exam Date: 09/04/17 Exam Time: 1130 REPORT STATUS: Signed Tagged-RBC GI Bleed Study Clinical information: 82-year-old male with anemia and coumadin toxicity. Discussion: The patient's own red blood cells were labeled with 27 mCi of technetium-99m pertechnetate using the in vitro method (UltraTag). Dynamic images of the abdomen were obtained through 60 minutes. Distribution of tracer activity appears physiologic throughout the abdomen. No abnormal accumulation of tracer is seen within the gastrointestinal lumen. Impression: No scan evidence of active gastrointestinal bleeding at this time. Signed by: Dr. Daria Vera M.D. on 09/04/2017 6:01 PM Dictated By: DARIA VERA MD 00 COPY TO: ASCENCION MCKEON MD CHEST XRAY LINE PLACEMENT [place] [address] Patient Name: SINDY MALDONADO MR #: [id number] : 1935 Age/Sex: 82/M Req #: [id number] Adm Physician: DELMIS MCKEON MD Ordered by: SERA MONCADA MD Report #: [id number] Location: MED/SURG3 Room/Bed: [facility] Procedure: [id number] DX/CHEST XRAY LINE PLACEMENT Exam Date: 09/01/17 Exam Time: 2124 REPORT STATUS: Signed CHEST XRAY LINE PLACEMENT, 09/01/2017 9:10 PM Technique: CHEST XRAY LINE PLACEMENT Comparison: None available. Clinical history: PICC line placement Findings: See Impression. Note is made of prior mid thoracic vertebroplasty. Severe glenohumeral degenerative changes. Impression: Limited by motion and portable technique. 1. Lines/Tubes: Left PICC line tip overlies the SVC. 2. Stable cardiac silhouette. 3. Mild left basilar atelectasis. No effusion or pneumothorax. Signed by: Dr Sarita Ruano MD on 09/01/2017 9:41 PM Dictated By: SARITA RUANO MD 40 Transcribed By: TONIO on 09/01/172140 COPY TO: SERA MONCADA MD CHEST XRAY LINE PLACEMENT [place] [address] Patient Name: SINDY MALDONADO MR #: [id number] : 1935 Age/Sex: 82/M Req #: [id number] Adm Physician: DELMIS MCKEON MD Ordered by: SERA MONCADA MD Report #: [id number] Location: MED/SURG3 Room/Bed: 291-1 Procedure: [id number] DX/CHEST XRAY LINE PLACEMENT Exam Date: 09/01/17 Exam Time: 1929 REPORT STATUS: Signed CHEST XRAY LINE PLACEMENT, 09/01/2017 7:17 PM Technique: CHEST XRAY LINE PLACEMENT Comparison: None available. Clinical history: PICC line placement Findings: See Impression. Left costophrenic angle partially excluded. Prior midthoracic vertebroplasty noted. Impression: 1. Lines/Tubes: Left PICC line tip overlies the brachiocephalic vein SVC junction. Consider advancement 3 cm. 2. Mildly enlarged cardiomediastinal silhouette, likely accentuated by technique. 3. Mild left basilar atelectasis. No significant effusion. No pneumothorax.. Signed by: Dr Sarita Ruano MD on 09/01/2017 8:06 PM Dictated By: SARITA RUANO MD 05 Transcribed By: TONIO on 09/01/172005 COPY TO: SERA MONCADA MD CHEST SINGLE (PORTABLE) [place] [address] Patient Name: SINDY MALDONADO MR #: [id number] : 1935 Age/Sex: 82/M Req #: [id number] Adm Physician: Ordered by: TOM STEELE MD Report #: [id number] Location: ER Room/Bed: Procedure: [id number] DX/CHEST SINGLE (PORTABLE) Exam Date: 08/30/17 Exam Time: 1200 REPORT STATUS: Signed PROCEDURE: A single AP view of the chest. COMPARISON: Patients [facility], DX, CHEST SINGLE (PORTABLE), 07/23/2017, 12:17. INDICATIONS: THROWING UP BLOOD FINDINGS: Lines/tubes: None. Lungs: The lungs are well inflated. Minimal linear opacities projecting in the left costophrenic angle likely represents subsegmental atelectasis. The lungs are otherwise clear. There is no evidence of consolidation or pulmonary edema. Pleura : There is no pleural effusion or pneumothorax. Heart and mediastinum: The heart and the mediastinum are unremarkable. Bones: No acute bony abnormality. Degenerative disc changes in the thoracic spine. Likely vertebroplasty changes in the mid thoracic spine. Partially visualized marked degenerative changes and joint space narrowing in the left glenohumeral joint. IMPRESSION: 1. minimal subsegmental atelectasis in the left lower lung. The lungs are otherwise clear. Clint Grajeda M.D. Dictated by: Clint Grajeda M.D. on 2016 at 12:39 Electronically approved by: Clint Grajeda M.D. on at 12:39 Dictated By: CLINT GRAJEDA MD 1239 Transcribed By: NILS on 08/30/17 1239 COPY TO: TOM STEELE MD MRI BRAIN WO [place] [address] Patient Name: SINDY MALDONADO MR #: [id number] : 1935 Age/Sex: 82/M Req #: [id number] Adm Physician: BEATRIZ FRANKLIN MD Ordered by: SARITHA VILLA MD Report #: [id number] Location: MED/SURG2 Room/Bed: [facility] _ Procedure: [id number] MRI/MRI BRAIN WO Exam Date: 07/29/17 Exam Time: 0930 REPORT STATUS: Signed History: Dizziness Comparison studies: CT head 07/23/2017 Technique: Sagittal T2; axial DWI , FLAIR, MPGR, T1, Coronal FLAIR. Intravenous contrast: None Findings: Scalp: Normal in signal . No masses . Bone marrow: Normal in signal intensity. Extra-axial: No masses, no fluid collections. Brain sulci: Mildly prominent. Ventricles: Mildly prominent . No hydrocephalus . Parenchyma: Scattered T2/FLAIR hyperintensities of the periventricular and the white matter. Again seen bilateral small striatocapsular chronic lacunar infarcts No masses, hemorrhage, acute or chronic vascular insults. Suprasellar region: No abnormalities. Craniocervical junction: No abnormalities. Patent foramen magnum. No Chiari one malformation. Vessels : Normal flow-voids in the arteries and sinuses. Mild fluid intensity signal at the left masseter cells, secondary to nonspecific inflammatory changes. Mild nonspecific mucosal thickening at the left maxillary sinus IMPRESSION: 1. No acute abnormalities. 2. Mild chronic microvascular ischemic changes of the white matter and diffuse volume loss. 3. Mild nonspecific inflammatory changes of the left mastoid air cells Signed by: DR Cory Clark M.D. on 07/29/2017 4:46 PM Dictated By: CORY BURLESON MD 45 Transcribed By: TONIO on 07/29/171645 COPY TO: SARITHA VILLA MD ECHO COMPLETE (ECHOCARDIOGRAM) [place] [address] Patient Name : SINDY MALDONADO MR #: [id number] : 1935 Age/Sex: 82/M Adm Physician : BEATRIZ FRANKLIN MD Admit Date : 07/24/17 Location : MED/SURG2 Room/Bed : 213- REPORT: Cardiology Report DATE OF STUDY: July 28, 2017 ECHOCARDIOGRAM M-MODE: Normal chamber sizes, left ventricular hypertrophy, diminished left ventricular contractility especially the anterior wall, normal mitral aortic valves and no pericardial effusion. SECTOR SCAN: Normal chamber sizes. Left ventricular hypertrophy , diminished left ventricular contractility. Ejection fraction is approximately 40%. Anterior wall is hypokinetic. Mitral aortic and tricuspid valves grossly normal. Small posterior pericardial effusion less than 0.3 cm. CARDIAC DOPPLER STUDY WITH COLOR: Trace mitral and tricuspid regurgitation. CONCLUSION 1. Anterior hypokinesis. 2. Left ventricular hypertrophy with ejection fraction of approximately 40%. 3. Minimal posterior pericardial effusion less than 0.3 cm. DD: 08/2017 12:59 Job#: [id number] cc: BEATRIZ FRANKLIN MD Signature Date Dictated By: OLESYA BENOIT MD Transcribed By: [facility] on 07/28/17 <Electronically signed by OLESYA BENOIT MD> <<Signature on File>>08/08/17 0903 COPY TO: HAND 3+ VIEWS RIGHT [place] [address] Patient Name: SINDY MALDONADO MR #: [id number] : 1935 Age/Sex: 82/M Req #: [id number] Adm Physician: BEATRIZ FRANKLIN MD Ordered by: OLESYA BENOIT MD Report #: [id number] Location: MED/SURG2 Room/Bed: 213 Procedure: [id number] DX/HAND 3+ VIEWS RIGHT Exam Date: 07/28/17 Exam Time: 1245 REPORT STATUS: Signed Right hand - 3 views HISTORY: Pain. COMPARISON: None available. FINDINGS : Bones: No acute displaced fracture. Degenerative changes are present in multiple carpal carpal joints, the radiocarpal joint, and the first carpal metacarpal joint. Additional degenerative changes are present in the proximal and distal interphalangeal joints of multiple digits. Degenerative changes in the involved joints are evidenced by joint space narrowing and subchondral sclerosis. Decreased bone mineralization is present. No expansile lytic or sclerotic lesion. Joints: The joint spaces are well-maintained. No dislocation. Soft tissues: Atherosclerotic calcifications. IMPRESSION: No acute displaced fracture. Extensive degenerative changes. Signed by: Dr. Sindy Rodriguez M.D. on 07/28/2017 1:11 PM Dictated By: SINDY RODRIGUEZ MD 1311 Transcribed By: TONIO on 07/28/17 1311 COPY TO: OLESYA BENOIT MD [place] [address] Patient Name: SINDY MALDONADO MR #: [id number] : 1935 Age/Sex: 82/M Req #: [id number] [facility] Physician: BEATRIZ FRANKLIN MD Ordered by: JESSICA MCINTYRE MD Report #: [id number] Location: MED/SURG2 Room/Bed: [facility] Procedure: [id number] DX/FOOT LEFT COMPLETE Exam Date: 07/24/17 Exam Time: 1445 REPORT STATUS: Signed PROCEDURE: X-RAY LEFT FOOT, COMPLETE COMPARISON: Patients [facility], DX, FOOT RIGHT AP T LAT, 11/23/2015, 8:25. INDICATIONS: DIABETES FINDINGS: Marked generalized osteopenia, which limits evaluation of the bony structures. Postoperative changes of bunionectomy in the first metatarsal bone, with associated degenerative changes in the first toe tarsometatarsal and metatarsophalangeal joints. 2 metallic screws are noted in the distal diaphysis of the first metatarsal bone. 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 No definite cortical erosion is noted. Extensive vascular calcifications. Soft tissue swelling in the dorsal and plantar aspect of the foot. CONCLUSION: 1. Exam markedly limited by generalized osteopenia. 2. No definite cortical erosion is noted to suggest osteomyelitis. 3. Findings suggest chronic Lisfranc injury Clint Grajeda M.D. Dictated by: Clint Grajeda M.D. on 07/24/2017 at 17:21 Electronically approved by: Clint Grajeda M.D. on 07/24/2017 at 17:21 Dictated By: CLINT GRAJEDA MD 172 Transcribed By: NILS on 07/24/17 172 COPY TO: JESSICA MCINTYRE MD CT BRAIN WO [place] [address] Patient Name: SINDY MALDONADO MR #: [id number] : 1935 Age/Sex: 82/M Req #: [id number] Adm Physician: Ordered by: LEXA GARCIA Report #: [id number] Location: Room/Bed: Procedure: [id number] CT/CT BRAIN WO Exam Date: 07/23/17 Exam Time: 1330 REPORT STATUS: Signed History:Syncope Comparison studies:None Technique: Axial images were obtained from the skull base to the vertex. Coronal and sagittal images reconstructed from the axial data. Intravenous contrast: None Findings: Scalp/skull: No abnormalities. Extra- axial spaces: No masses. No fluid collections. Brain sulci: Mildly prominent. Ventricles: Mild compensatory dilatation. No hydrocephalus. Parenchyma: Scattered hypodensities in the supratentorial white matter are small vessel ischemic changes. Small chronic lacunar infarct at the bilateral striatocapsular subinsular regions. No masses, hemorrhage, acute or chronic cortical vascular insults. Sellar/suprasellar region: No abnormalities. Craniocervical junction: Patent foramen magnum. No Chiari one malformation. Incidental findings: Atherosclerotic calcifications in the carotid siphons and vertebral arteries . Impression: No acute abnormalities. Chronic findings: 1. Mild generalized volume loss. 2. Mild supratentorial white matter small vessel ischemic changes. Signed by: DR Cory Clark M.D. on 07/23/2017 2:20 PM Dictated By: CORY CLARK MD 1420 Transcribed By: TONIO on 07/23/17 1420 COPY TO: LEXA GARCIA CHEST [facility] ER (PORTABLE) [place] [address] Patient Name: SINDY MALDONADO MR #: [id number] : 1935 Age/Sex: 82/M Req #: [id number] Adm Physician: Ordered by: ANTONIO RODRIGUEZ MD Report #: [id number] Location: ER Room/Bed: Procedure: [id number] DX/CHEST SINGLE (PORTABLE) Exam Date: 07/23/17 Exam Time: 1220 REPORT STATUS: Signed PROCEDURE: A single AP view of the chest. COMPARISON: Patients [facility], DX, CHEST 2 VIEWS, 06/20/2017, 15:59. INDICATIONS: NAUSEA, PASSED OUT FINDINGS: Lines/tubes: None. Lungs: Lungs are hypoinflated, but grossly clear. No consolidation or pulmonary edema. Pleura: There is no pleural effusion or pneumothorax. Heart and mediastinum: Prominence of the cardiac silhouette, which is partly due to low lung volumes and AP projection. Bones: No acute bony abnormality. IMPRESSION: 1. hypoinflated lungs, without acute cardiopulmonary disease. Clint Grajeda M.D. Dictated by: Clint Grajeda M.D. on 07/23/2017 at 13: 14 Electronically approved by: Clint Grajeda M.D. on 07/23/2017 at 13:14 Dictated By: CLINT GRAJEDA MD 1314 Transcribed By: NILS on 07/23/17 1314 COPY TO: ANTONIO RODRIGUEZ MD NON-TUNNELLED CVC CATH PLACRIT [place] [address] Patient Name: SINDY MALDONADO MR #: [id number] : 1935 Age/Sex: 82/M Req #: [id number] Adm Physician: OLESYA BENOIT MD Ordered by: CHELSI MAGALLON Report #: [id number] Location: MED/SURG2 Room/Bed: [facility] Procedure: [id number] IR/NON-TUNNELLED CVC CATH PLACMNT Exam Date: 06/24/17 Exam Time: 1330 REPORT STATUS: Signed PROCEDURE: NON-TUNNELLED CVC CATH PLACMNT COMPARISON: Chest radiograph 06/20/2017. INDICATIONS: Poor intravenous access COMPLICATIONS: No immediate Sedation/anesthesia: None Additional medications: Lidocaine 1% for local anesthesia BLOOD LOSS: Minimal Blood products administered: None Specimens: None Implants/grafts: 7 Kitt[place] 16 cm triple lumen central venous catheter Fluoroscopy time: 0.2 minutes Condition at completion of procedure: Stable Disposition: Return to cruz unit PROCEDURE: Informed consent was obtained and documented in the medical record after discussion of risks and benefits. The patient was placed in the supine position on the fluoroscopic table. Preliminary sonographic evaluation confirmed patency of the right internal jugular vein, evidenced by compressibility. The right neck was prepped and draped in standard sterile fashion. 1% lidocaine was infiltrated into the skin and subcutaneous tissues for local anesthesia. Then under continuous sonographic guidance, an 18 gauge single wall needle was used to access the right internal jugular vein. A permanent sonographic image was stored in the medical record. A 0.035 inch wire was then advanced through the needle into the inferior vena cava under fluoroscopic guidance. The needle was removed and the tract was dilated. Then, a 7 Kittitian, 16 cm triple lumen central venous catheter was advanced over the wire to full depth. The wire was removed and the catheter tip was positioned at the superior cavoatrial junction. Each lumen was tested and showed adequate bidirectional flow. Each lumen was then flushed with sterile saline. The catheter was secured to skin with monofilament nylon suture and a sterile dressing was applied. The patient tolerated the procedure well without immediate complication. CONCLUSION: Successful placement of a 7 Kittitian, 16 cm triple lumen central venous catheter via a right internal jugular approach under sonographic and fluoroscopic guidance. Dictated by: Heather Phillips M.D. on 06/24/2017 at 14:51 Electronically approved by: Heather Phillips M.D. on 05/2017 at 14:51 Dictated By: HEATHER PHILLIPS MD 50 Transcribed By: NILS on 06/24/171450 COPY TO: CHELSI MAGALLON IR CONSULT [place] [address] Patient Name: SINDY MALDONADO MR #: [id number] : 1935 Age/Sex: 82/M Req #: [id number] Adm Physician: OLESYA BENOIT MD Ordered by: CHELSI MAGALLON Report #: [id number] Location: MED/SURG2 Room/Bed: [facility] _ Procedure: [id number] DX/IR CONSULT Exam Date: Exam Time: REPORT STATUS: Signed PROCEDURE: NON-TUNNELLED CVC CATH PLACMNT COMPARISON: Chest radiograph 06/20/2017. INDICATIONS: Poor intravenous access COMPLICATIONS: No immediate Sedation/anesthesia: None Additional medications: Lidocaine 1% for local anesthesia BLOOD LOSS: Minimal Blood products administered: None Specimens: None Implants/grafts: 7 Kittitian 16 cm triple lumen central venous catheter Fluoroscopy time: 0.2 minutes Condition at completion of procedure: Stable Disposition: Return to cruz unit PROCEDURE: Informed consent was obtained and documented in the medical record after discussion of risks and benefits. The patient was placed in the supine position on the fluoroscopic table. Preliminary sonographic evaluation confirmed patency of the right internal jugular vein, evidenced by compressibility. The right neck was prepped and draped in standard sterile fashion. 1% lidocaine was infiltrated into the skin and subcutaneous tissues for local anesthesia. Then under continuous sonographic guidance, an 18 gauge single wall needle was used to access the right internal jugular vein. A permanent sonographic image was stored in the medical record. A 0.035 inch wire was then advanced through the needle into the inferior vena cava under fluoroscopic guidance. The needle was removed and the tract was dilated. Then, a 7 Kittitian, 16 cm triple lumen central venous catheter was advanced over the wire to full depth. The wire was removed and the catheter tip was positioned at the superior cavoatrial junction. Each lumen was tested and showed adequate bidirectional flow. Each lumen was then flushed with sterile saline. The catheter was secured to skin with monofilament nylon suture and a sterile dressing was applied. The patient tolerated the procedure well without immediate complication. CONCLUSION: Successful placement of a 7 Kittitian, 16 cm triple lumen central venous catheter via a right internal jugular approach under sonographic and fluoroscopic guidance. Dictated by : Heather Phillips M.D. on 06/24/2017 at 14:51 Electronically approved by: Heather Phillips M.D. on 06/24/2017 at 14:51 Dictated By: HEATHER PHILLIPS MD 50 Transcribed By: NILS on 06/24/171450 COPY TO: CHELSI MAGALLON GUIDANCE FOR VASCULAR ACCES [place] [address] Patient Name: SINDY MALDONADO MR #: [id number] : 1935 Age/Sex: 82/M Req #: [id number] Adm Physician: OLESYA BENOIT MD Ordered by: CHELSI MAGALLON Report #: [id number] Location: MED/SURG2 Room/Bed: [facility] Procedure: [id number] US/US GUIDANCE FOR VASCULAR ACCES Exam Date: Exam Time: REPORT STATUS: Signed PROCEDURE: ULTRASOUND GUIDANCE FOR VASCULAR ACCESS COMPARISON : None. INDICATIONS: Central Line Placement FINDINGS: Right internal jugular vein is noted to be patent. Ultrasound guidance was utilized for access for central line placement. CONCLUSION: Patent right internal jugular vein. Successful ultrasound guidance for central line placement. Dictated by: Heather Phillips M.D. on 06/24/2017 at 14:48 Electronically approved by: Heather Phillips M.D. on 06/24/2017 at 14:48 Dictated By: HEATHER PHILLIPS MD 1448 Transcribed By: NILS on 06/24/17 1448 COPY TO : CHELSI MAGALLON CHEST 2 VIEWS [place] [address] Patient Name: SINDY MALDONADO MR #: [id number] : 1935 Age/Sex: 82/M Req #: [id number] Adm Physician: Ordered by: ONELIA PATRICIO DPKelly Report #: [id number] Location: OR Room/Bed: Procedure: [id number] DX/CHEST 2 VIEWS Exam Date: 06/20/17 Exam Time: 1549 REPORT STATUS: Signed PROCEDURE: Frontal and lateral views of the chest. COMPARISON: [facility], DX, CHEST 2 VIEWS, 2015, 11:11. INDICATIONS: PREOPERATIVE FOT FOOT SURGERY FINDINGS: Lines/tubes: None. Lungs: The lungs are well inflated and clear. There is no evidence of pneumonia or pulmonary edema. Pleura: There is no pleural effusion or pneumothorax. Heart and mediastinum: Stable enlargement of the cardiac silhouette. Pulmonary vasculature is normal. Tortuous aorta with atherosclerotic calcification.. Bones: No acute bony abnormality. Vertebroplasty changes in the midthoracic spine IMPRESSION: 1. stable enlargement of the cardiac silhouette, without acute cardiopulmonary abnormalities. Clint Grajeda M.D. Dictated by: Clint Grajeda M.D. on 06/20/2017 at 16:52 Electronically approved by: Clint Grajeda M.D. on 06/20/2017 at 16:52 Dictated By: CLINT GRAJEDA MD 51 Transcribed By: NILS on 06/20/171651 COPY TO: ONELIA PATRICIO DPM
--- NOTE | 2017-11-18 13:21 | History and Physical ---
HISTORY OF PRESENT ILLNESS: Patient is an 82-year-old male with past medical history positive for chronic atrial fibrillation and history of diabetes. He was at [facility]. He started having nosebleed and came to the emergency room. His INR was 10, so he is getting fresh frozen plasma. No other significant complaints. REVIEW OF SYSTEMS CARDIOVASCULAR: No chest pain or palpitations. RESPIRATORY: No shortness of breath. No cough. GASTROINTESTINAL: No nausea, vomiting or diarrhea. GENITOURINARY: No frequency and no dysuria. ALLERGIES: HE IS ALLERGIC TO CODEINE AND HYDROCODONE. SOCIAL HISTORY: He does not smoke. He drinks occasionally. PAST MEDICAL HISTORY: Positive for chronic atrial fibrillation, diabetes mellitus type 2, hypertension, hypothyroidism, glaucoma. PHYSICAL EXAMINATION HEART: Irregularly irregular heart rate. Normal S1 and S2 sounds. LUNGS: Clear bilaterally. ABDOMEN: Soft. He has a colostomy in place. No distention. No visceromegaly. EXTREMITIES: Multiple bruises and ecchymoses on the arms and legs. He has a right leg superficial wound. He has a hematoma on the right leg also and also another hematoma on the right arm. IMPRESSION 1. Episode of epistaxis secondary to coagulopathy. 2. Coagulopathy secondary to Coumadin. 3. Chronic atrial fibrillation. 4. Diabetes mellitus, type 2. 5. Right leg wound. 6. Hypertension. 7. Hypothyroidism. PLAN OF TREATMENT: Of course, we are going to hold the Coumadin and give fresh frozen plasma to counteract the Coumadin. Continue diabetic diet. Blood sugar a.c. and nightly. Resume half-way medications. We are going to consult Dr. Johnson, ear, nose and throat specialist, because of the nosebleed. Continue telemetry. Job#: [id number]
[2017-11-18] MEDS: DOXYCYCLINE HYCLATE TABLET 100 MG TAB PO SCH (14:17)
[2017-11-18] MEDS: MIDODRINE 2.5 MG TAB PO SCH ×2 (15:33→21:45)
[2017-11-18] MEDS: VERAPAMIL HCL 80 MG TAB PO SCH (17:00)
[2017-11-18] MEDS ORDERED: VERAPAMIL HCL 120 MG TABSR PO SCH (17:00)
[2017-11-18 17:30] VITALS: BP 126/70
[2017-11-18 17:35] VITALS: BP 126/76
[2017-11-18 17:55] VITALS: BP 105/69
[2017-11-18 18:00] VITALS: BP 124/63
[2017-11-18] MEDS: METOPROLOL TARTRATE 50 MG TAB PO SCH (18:30)
[2017-11-18] MEDS: BUSPIRONE HCL 5 MG TAB PO SCH (18:30)
[2017-11-18] MEDS: CALCIUM CARBONATE 500 MG CHEWABLE TABS PO SCH (18:30)
[2017-11-18] MEDS: MAGNESIUM OXIDE 400 MG TAB PO SCH (18:30)
[2017-11-18] MEDS: PANTOPRAZOLE 40 MG 10ML VIAL IV SCH (18:42)
[2017-11-18 20:59] VITALS: BP 124/63
[2017-11-18] MEDS: MELATONIN 5 MG TABLET PO SCH (21:46)
[2017-11-18] MEDS: NEOMYCIN/POLYMYXIN/BACITRACIN 15 GM TUBE TOP SCH (21:46)
[2017-11-18] MEDS: SALINE 0.65% NAS SOLN 1 SPRAY BTL SCH (21:47)
--- NOTE | 2017-11-18 23:19 | Consultation ---
DATE OF CONSULTATION: November 18, 2017 HOSPITAL CONSULTATION HISTORY OF PRESENT ILLNESS: I was kindly asked to see this 82-year-old man for evaluation of epistaxis. Patient has a many year history of intermittent epistaxis, however, the epistaxis had not been a problem until few days prior to his presentation when he developed intermittent left-sided epistaxis. His history of present illness was pertinent for Coumadin toxicity with an INR of 10. PAST MEDICAL HISTORY AND PAST SURGICAL HISTORY: Reviewed in detail in the chart. PHYSICAL EXAMINATION: significant nasal septal deviation towards the left. Bleeding points were identified on the anterior and mid portion of the left nasal septum. With fiberoptic diagnostic rhinoscopy, no additional bleeding points were identified. Bleeding points were cauterized with silver nitrate. Oral cavity and pharyngeal examination were normal. There was no palpable cervical adenopathy. ASSESSMENT: 1. Epistaxis. 2. Nasal septal deviation. PLAN: 1. Licking nasal spray 2 puffs each side of nose q.4h. while awake. 2. Bacitracin ointment to each nostril t.i.d. Thank you very much. Job#: [id number]
[2017-11-19] VITALS (14 sets, daily range): BP systolic 76–135; BP diastolic 47–84
[2017-11-19 00:19] LABS: BILIRUBIN,URINE NEGATIVE (NEGATIVE); KETONES,URINE NEGATIVE (NEGATIVE); LEUKOCYTE ESTERASE ,URINE 2+ (NEGATIVE); PROTEIN,URINE DIPSTICK NEGATIVE (NEGATIVE); URINE UROBILINOGEN 0.2 mg/dL (0.2 - 1)
[2017-11-19] MEDS: DOXYCYCLINE HYCLATE TABLET 100 MG TAB PO SCH ×3 (00:21→20:29)
[2017-11-19 00:29] LABS: CLARITY,URINE SL CLOUDY (CLEAR); COLOR,URINE YELLOW (YELLOW); NITRITE,URINE POSITIVE (NEGATIVE)
[2017-11-19 00:35] LABS: BACTERIA,URINE MANY /HPF; EPITHELIAL CELLS,URINE RARE /LPF; WBC,URINE (MAN) 21-50 /HPF (0-5)
[2017-11-19] MEDS: ONDANSETRON HCL INJ 2 MG/ML VIAL IV PRN (01:05)
[2017-11-19 06:06] LABS: BASOPHILS % 0.6 % (0.0-1.0); EOSINOPHILS % 0.3 % (0.0-6.0); HEMATOCRIT 25.3 % (38.2-49.6); HEMOGLOBIN 8.5 g/dL (14.0-18.0); LYMPHOCYTES # (AUTO) 1.3 (1.0-3.2); LYMPHOCYTES % 18.2 % (18.0-39.1); MEAN CORPUSCULAR HEMOGLOBIN 29.6 pg (28-32); MEAN CORPUSCULAR HGB CONC 33.6 g/dL (31-35); MEAN CORPUSCULAR VOLUME 88.2 fL (81-99); MONOCYTES % 14.3 % (4.4-11.3); NEUTROPHILS # (AUTO) 3.6 (2.1-6.9); NEUTROPHILS % 49.1 % (38.7-80.0); PLATELET COUNT 111 x10e3/uL (140-360); RED BLOOD COUNT 2.87 x10e6/uL (4.3-5.7); RED CELL DISTRIBUTION WIDTH 20.2 % (11.7-14.4)
[2017-11-19] MEDS: SALINE 0.65% NAS SOLN 1 SPRAY BTL SCH ×5 (06:10→20:29)
[2017-11-19] MEDS: LEVOTHYROXINE SODIUM 100 MCG TAB PO SCH (06:11)
[2017-11-19 06:18] LABS: INR 3.94; PROTHROMBIN TIME 36.2 seconds (11.9-14.5)
[2017-11-19 06:19] LABS: PARTIAL THROMBOPLASTIN TIME 86.6 seconds (23.8-35.5)
[2017-11-19 06:38] LABS: ANION GAP 16.9 mmol/L (8-16); CREATININE, SERUM 1.17 mg/dL (0.72-1.25); POTASSIUM 3.9 mmol/L (3.5-5.1)
--- NOTE | 2017-11-19 07:57 | Diagnostic Imaging Report ---
PROCEDURE: CHEST SINGLE (PORTABLE) COMPARISON: Patients [facility], DX, CHEST SINGLE (PORTABLE), 11/18/2017, 9:01. INDICATIONS: SHORTNESS OF BREATH FINDINGS: LUNGS: Mild pulmonary vascular congestion. PLEURA: Small left pleural effusion. HEART \T\ MEDIASTINUM: The heart is enlarged BONES \T\ SOFT TISSUES: No acute findings. Degenerative changes about both shoulders. Kyphoplasty cement noted in the mid thoracic spine. CONCLUSION: Cardiomegaly with mild pulmonary vascular congestion. Jose Armando Coyne D.O. Dictated by: Jose Armando Coyne D.O. on 11/19/2017 at 7:56 Electronically approved by: Jose Armando Coyne D.O. on 11/19/2017 at 7:56
[2017-11-19 08:30] LABS: BAND NEUTROPHILS % (MANUAL) 3 %; EOSINOPHILS % (MANUAL) 2 % (0-7); LYMPHOCYTES % (MANUAL) 21 % (19-48); METAMYELOCYTES % (MANUAL) 4 % (0-0); MONOCYTES % (MANUAL) 13 % (3.4-9.0); MYELOCYTES % (MANUAL) 2 % (0-0); NEUTROPHILS % (MANUAL) 53 % (40-74); PROMYELOCYTES % (MANUAL) 1 % (0-0)
[2017-11-19 08:31] LABS: PLATELET ESTIMATE SLIGHTLY DECREASED; PLATELET MORPHOLOGY COMMENT FEW LARGE; RBC MORPHOLOGY COMMENT ABNORMAL
[2017-11-19 08:32] LABS: ANISOCYTOSIS SLIGHT; HYPOCHROMASIA SLIGHT; POIKILOCYTOSIS SLIGHT
[2017-11-19] MEDS ORDERED: LEVOTHYROXINE SODIUM 75 MCG TAB PO SCH (09:00)
[2017-11-19] MEDS ORDERED: MELATONIN 3 MG TAB PO SCH (09:00)
[2017-11-19] MEDS ORDERED: PANTOPRAZOLE SOD 40 MG TABEC PO SCH (09:00)
[2017-11-19] MEDS: BUSPIRONE HCL 5 MG TAB PO SCH ×2 (09:46→18:12)
[2017-11-19] MEDS: PANTOPRAZOLE 40 MG 10ML VIAL IV SCH ×2 (09:46→18:12)
[2017-11-19] MEDS: METOPROLOL TARTRATE 50 MG TAB PO SCH (09:47)
[2017-11-19] MEDS: FOLIC ACID 1 MG TAB PO SCH (09:47)
[2017-11-19] MEDS: VERAPAMIL HCL 80 MG TAB PO SCH (09:47)
[2017-11-19] MEDS: FERROUS SULFATE 325 MG TAB PO SCH (09:47)
[2017-11-19] MEDS: FUROSEMIDE 40 MG TAB PO SCH (09:47)
[2017-11-19] MEDS: FLUCONAZOLE 100 MG TAB PO SCH (09:47)
[2017-11-19] MEDS: METOLAZONE 5 MG TAB PO SCH (09:48)
[2017-11-19] MEDS: NEOMYCIN/POLYMYXIN/BACITRACIN 15 GM TUBE TOP SCH ×3 (09:48→20:30)
[2017-11-19] MEDS: MIDODRINE 2.5 MG TAB PO SCH ×3 (09:48→18:13)
[2017-11-19] MEDS: ALLOPURINOL 300 MG TAB PO SCH (09:48)
[2017-11-19] MEDS: MAGNESIUM OXIDE 400 MG TAB PO SCH ×2 (09:48→18:12)
[2017-11-19] MEDS: CALCIUM CARBONATE 500 MG CHEWABLE TABS PO SCH ×2 (09:48→18:12)
--- NOTE | 2017-11-19 12:48 | Progress Note ---
DATE: November 19, 2017 INTERNAL MEDICINE PROGRESS NOTE SUBJECTIVE: This 82-year-old male, with past medical history positive for chronic atrial fibrillation, came here with Coumadin toxicity with very high INR and bleeding through the nose. Dr. Cresencio Johnson, ear, nose and throat specialist, saw the patient and cauterized the area where he was bleeding from the nose. The nosebleed resolved. PHYSICAL EXAMINATION VITAL SIGNS: Blood pressure is 84/54. Temperature 97.8 degrees, heart rate 89 per minute. Respiratory rate is 15 per minute. Oxygen saturation is 100%. HEART: Irregularly irregular heart rate, normal S1 and S2 sounds. LUNGS: Clear bilaterally. ABDOMEN: Soft. EXTREMITIES: Small wound on the right leg and multiple bruises on arms and legs. LABS: BMP: Sodium 143, potassium 3.9, chloride 103, CO2 27, BUN 15, creatinine 1.17, glucose 211. On the CBC, white blood count 7.21, hemoglobin 8.5, hematocrit 25.3, platelet count 111,000. PT 36.2, INR 3.94, PTT 86.6. AST 16, ALT 10, total bilirubin 0.5, alkaline phosphatase 202. FINAL IMPRESSION 1. Episode of epistaxis, which is resolved after cauterization done by Dr. Johnson. 2. Coagulopathy secondary to Coumadin, which is resolving. 3. Jaqav-ux-vjumgth renal failure, stage 3. 4. Hypotension. 5. Chronic atrial fibrillation. 6. Hypothyroidism. PLAN OF TREATMENT: We are going to continue with the midodrine because of hypotension, which is 2.5 mg 3 times a day. Continue monitoring hemoglobin, hematocrit, PT and INR. We are holding the Coumadin, of course. In the meantime, continue Zofran 4 mg IV q.4 h. as needed, allopurinol 600 mg daily, BuSpar 7.5 mg twice a day as needed, folic acid 1 mg daily, melatonin 5 mg at bedtime. We are going to hold the verapamil because of hypotension. We are going to hold the furosemide because of hypotension. We are going to hold the metolazone because of hypotension. Continue Protonix 40 mg twice a day, doxycycline 100 mg twice a day, ferrous sulfate 325 mg daily, levothyroxine 100 mcg daily. Going to hold metoprolol also because of hypotension. Continue with midodrine 2.5 mg 3 times a day. We are going to give him also normal saline 200 mL over 1 hour if the systolic blood pressure is still less than 90. Job#: [id number]
[2017-11-19] MEDS: BALSAM PERU/CASTOR OIL 60 GM OINT...G. TP SCH (17:56)
[2017-11-19] MEDS: MELATONIN 5 MG TABLET PO SCH (20:29)
[2017-11-19] MEDS: ACETAMINOPHEN 325 MG TAB PO PRN (23:40)
[2017-11-20] VITALS (9 sets, daily range): BP systolic 123–133; BP diastolic 59–101
[2017-11-20] MEDS: LEVOTHYROXINE SODIUM 100 MCG TAB PO SCH (05:26)
[2017-11-20] MEDS: SALINE 0.65% NAS SOLN 1 SPRAY BTL SCH ×5 (05:26→22:06)
[2017-11-20 06:20] LABS: BASOPHILS # (AUTO) 0.1 (0.0-0.1); BASOPHILS % 0.7 % (0.0-1.0); EOSINOPHILS # (AUTO) 0.1 (0.0-0.4); EOSINOPHILS % 0.9 % (0.0-6.0); HEMATOCRIT 24.7 % (38.2-49.6); HEMOGLOBIN 8.2 g/dL (14.0-18.0); LYMPHOCYTES # (AUTO) 1.3 (1.0-3.2); LYMPHOCYTES % 19.6 % (18.0-39.1); MEAN CORPUSCULAR HEMOGLOBIN 30.4 pg (28-32); MEAN CORPUSCULAR HGB CONC 33.2 g/dL (31-35); MEAN CORPUSCULAR VOLUME 91.5 fL (81-99); MONOCYTES # (AUTO) 1.3 (0.2-0.8); MONOCYTES % 18.7 % (4.4-11.3); NEUTROPHILS # (AUTO) 2.8 (2.1-6.9); NEUTROPHILS % 41.3 % (38.7-80.0); PLATELET COUNT 128 x10e3/uL (140-360); RED CELL DISTRIBUTION WIDTH 20.1 % (11.7-14.4)
[2017-11-20 06:37] LABS: INR 5.49; PROTHROMBIN TIME 46.9 seconds (11.9-14.5)
[2017-11-20 06:42] LABS: ANION GAP 15.6 mmol/L (8-16); CALCIUM 8.4 mg/dL (8.4-10.2); CREATININE, SERUM 1.41 mg/dL (0.72-1.25); POTASSIUM 3.6 mmol/L (3.5-5.1)
[2017-11-20 07:55] LABS: PLATELET ESTIMATE SLIGHTLY DECREASED; PLATELET MORPHOLOGY COMMENT FEW LARGE
[2017-11-20 07:57] LABS: ANISOCYTOSIS SLIG; HYPOCHROMASIA SLIGHT; POIKILOCYTOSIS SLIGHT; RBC MORPHOLOGY COMMENT NORMAL
[2017-11-20] MEDS: BUSPIRONE HCL 5 MG TAB PO SCH ×2 (08:15→17:52)
[2017-11-20] MEDS: MAGNESIUM OXIDE 400 MG TAB PO SCH ×2 (08:15→17:52)
[2017-11-20] MEDS: FOLIC ACID 1 MG TAB PO SCH (08:15)
[2017-11-20] MEDS: ALLOPURINOL 300 MG TAB PO SCH (08:16)
[2017-11-20] MEDS: CALCIUM CARBONATE 500 MG CHEWABLE TABS PO SCH ×2 (08:17→17:52)
[2017-11-20] MEDS: DOXYCYCLINE HYCLATE TABLET 100 MG TAB PO SCH (08:17)
[2017-11-20] MEDS: FLUCONAZOLE 100 MG TAB PO SCH (08:17)
[2017-11-20] MEDS: FERROUS SULFATE 325 MG TAB PO SCH (08:17)
[2017-11-20] MEDS: MIDODRINE 2.5 MG TAB PO SCH ×3 (08:23→21:00)
[2017-11-20] MEDS: NEOMYCIN/POLYMYXIN/BACITRACIN 15 GM TUBE TOP SCH ×5 (08:24→21:37)
[2017-11-20] MEDS: METOLAZONE 5 MG TAB PO SCH (08:24)
[2017-11-20] MEDS: BALSAM PERU/CASTOR OIL 60 GM OINT...G. TP SCH ×2 (08:24→17:52)
[2017-11-20] MEDS: PANTOPRAZOLE 40 MG 10ML VIAL IV SCH ×2 (08:35→17:51)
[2017-11-20] MEDS: COLLAGENASE OINTMENT 30 GM TUBE TP SCH (12:42)
[2017-11-20] MEDS: SODIUM CHLORIDE FLUSH 10 ML SYR INJ PRN ×2 (13:45→14:45)
[2017-11-20] MEDS: ACETAMINOPHEN 325 MG TAB PO PRN ×2 (16:01→21:37)
[2017-11-20] MEDS ORDERED: PHYTONADIONE 1 MG/0.5 ML AMP IM NR (17:30)
[2017-11-20] MEDS: VERAPAMIL HCL 80 MG TAB PO SCH (17:52)
[2017-11-20] MEDS: METOPROLOL TARTRATE 50 MG TAB PO SCH (17:53)
--- NOTE | 2017-11-20 17:56 | Progress Note ---
DATE: November 20, 2017 INTERNAL MEDICINE PROGRESS NOTE SUBJECTIVE: He is doing okay with no specific complaint. PHYSICAL EXAM: VITAL SIGNS: Blood pressure 133/70, temperature is 97.3, heart rate 68 per minute. Respiratory rate is 20 per minute. Oxygen saturation 98%. HEART: Irregularly irregular heart rate, no murmur and no extra sounds. LUNGS: Clear bilaterally. ABDOMEN: Soft. EXTREMITIES: Show hematoma on the right forearm and small open wound on the lateral aspect of the right leg. LABORATORY DATA: On the blood work we have a BMP with sodium 142, potassium 3.6, chloride 102, CO2 28, BUN 58, creatinine 141, glucose 172 and on CBC white blood count 6.85, hemoglobin 8.2, hematocrit 24.7, platelet count 128,000. PT is 46.9. INR 5.49. PTT 86.6. AST 16, ALT 10, total bilirubin 0.5, alkaline phosphatase 202. FINAL IMPRESSION: 1. Coagulopathy secondary to Coumadin. 2. Epistaxis which is resolved. 3. Acute anemia secondary to nose bleed. 4. Acute on chronic renal failure stage 3. 5. Hypotension. 6. Chronic atrial fibrillation. 7. Hypothyroidism. 8. Hematoma on the right forearm. 9. Left leg wound. PLAN OF TREATMENT: Patient received 2 units of fresh frozen plasma. Today we are going to repeat the PT and INR tomorrow, CBC tomorrow. In the meantime, continue Buspar 7.5 mg twice a day as needed. Folic acid 1 mg daily. Melatonin 5 mg at bedtime. Meropenem 40 mg twice a day. Doxycycline 100 mg twice a day. Calcium carbonate 500 mg twice a day. Furosemide 40 mg daily. Metolazone 2.5 mg daily. Protonix 40 mg twice a day. 60 grams twice a day to effected area. Allopurinol 300 mg daily. Ferrous sulfate 325 mg daily. Levothyroxine 100 mcg daily. Metoprolol 50 mg twice a day. Neomycin, Polymyxin, Bacitracin to effected area 3 times a day. Collagenase 1 application daily. Fluconazole 100 mg daily. Magnesium oxide 400 mg twice a day. Midodrine 2.5 mg 3 times a day. Tylenol 650 mg q.4 h. as needed. Job#: [id number]
[2017-11-20] MEDS ORDERED: LEVOFLOXACIN 500MG/D5W 100ML 100 ML IV SCH (18:00)
[2017-11-20 19:17] LABS: INR 3.09; PROTHROMBIN TIME 29.9 seconds (11.9-14.5)
[2017-11-20] MEDS: MELATONIN 5 MG TABLET PO SCH (21:00)
[2017-11-21] VITALS (7 sets, daily range): BP systolic 112–144; BP diastolic 62–70
[2017-11-21] MEDS: SALINE 0.65% NAS SOLN 1 SPRAY BTL SCH ×5 (05:11→20:53)
[2017-11-21] MEDS: LEVOTHYROXINE SODIUM 100 MCG TAB PO SCH (05:15)
[2017-11-21 07:05] LABS: BASOPHILS % 0.3 % (0.0-1.0); EOSINOPHILS % 0.3 % (0.0-6.0); HEMATOCRIT 25.1 % (38.2-49.6); INR 4.08; LYMPHOCYTES % 13.4 % (18.0-39.1); MEAN CORPUSCULAR HEMOGLOBIN 29.4 pg (28-32); MEAN CORPUSCULAR HGB CONC 31.9 g/dL (31-35); MEAN CORPUSCULAR VOLUME 92.3 fL (81-99); MONOCYTES # (AUTO) 1.3 (0.2-0.8); NEUTROPHILS # (AUTO) 3.7 (2.1-6.9); NEUTROPHILS % 51.7 % (38.7-80.0); PLATELET COUNT 115 x10e3/uL (140-360); PROTHROMBIN TIME 37.2 seconds (11.9-14.5); RED BLOOD COUNT 2.72 x10e6/uL (4.3-5.7); RED CELL DISTRIBUTION WIDTH 19.8 % (11.7-14.4)
[2017-11-21] MEDS: VERAPAMIL HCL 80 MG TAB PO SCH (08:30)
[2017-11-21] MEDS: FLUCONAZOLE 100 MG TAB PO SCH (08:30)
[2017-11-21] MEDS: MAGNESIUM OXIDE 400 MG TAB PO SCH ×2 (08:30→17:00)
[2017-11-21] MEDS: ALLOPURINOL 300 MG TAB PO SCH (08:30)
[2017-11-21] MEDS: PANTOPRAZOLE 40 MG 10ML VIAL IV SCH ×2 (08:30→17:00)
[2017-11-21] MEDS: METOPROLOL TARTRATE 50 MG TAB PO SCH ×2 (08:30→17:00)
[2017-11-21] MEDS: FERROUS SULFATE 325 MG TAB PO SCH (08:30)
[2017-11-21] MEDS: FOLIC ACID 1 MG TAB PO SCH (08:30)
[2017-11-21] MEDS: CALCIUM CARBONATE 500 MG CHEWABLE TABS PO SCH ×2 (08:30→17:00)
[2017-11-21] MEDS: MIDODRINE 2.5 MG TAB PO SCH ×3 (08:30→20:50)
[2017-11-21] MEDS: METOLAZONE 5 MG TAB PO SCH (08:30)
[2017-11-21] MEDS: BUSPIRONE HCL 5 MG TAB PO SCH ×2 (08:30→17:00)
[2017-11-21] MEDS: FUROSEMIDE 40 MG TAB PO SCH (08:30)
--- NOTE | 2017-11-21 09:19 | Consultation ---
DATE OF CONSULTATION: November 21, 2017 UROLOGY CONSULTATION REASON FOR CONSULTATION: Penile discharge. HISTORY OF PRESENT ILLNESS: Patrick Sanches is an 82-year-old man who had developed a neurogenic bladder following a low anterior resection for colorectal cancer. The patient subsequently had urinary retention, as well as urinary incontinence. He has been managed with a Perez catheter, and has been changed on a monthly basis. This catheter was changed 2 days ago when he presented to the hospital. The patient has never been offered the option of suprapubic cystostomy. He is not capable of performing intermittent self-catheterization. The patient has been followed by Dr. Foote for his urological management so far. The patient also reports a history of urolithiasis with having had 5 kidney stones in the past. He has necessitated ureteroscopic extraction and stent placement in the past. This was while he lived in [place], [place]. The patient was admitted with Coumadin toxicity, coagulopathy and epistaxis. Urological consultation was sought for penile discharge. The patient has also had urinary tract infections and has one now. PAST MEDICAL AND SURGICAL HISTORY 1. Chronic atrial fibrillation. 2. Diabetes mellitus, type 2. 3. Hypertension. 4. Hypothyroidism. 5. Glaucoma. 6. Hyperlipidemia. 7. Status post appendectomy. 8. Status post tonsillectomy. 9. Status post low anterior resection with colostomy placement. 10. Status post bilateral total knee arthroplasties. ALLERGIES: CODEINE AND HYDROCODONE. CURRENT MEDICATIONS: Refer to the MAR. SOCIAL HISTORY: The patient denies smoking, ethanol or drug use. 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 FAMILY HISTORY: Noncontributory to the urological problems. REVIEW OF SYSTEMS: Consistent with the above history of present illness and past medical history. Otherwise, negative for all other systems. PHYSICAL EXAMINATION GENERAL: A very pleasant elderly man lying in bed in no apparent distress. VITALS: He is currently afebrile. Vital signs are currently stable. ABDOMEN: Soft, nondistended and nontender without costovertebral angle tenderness. There is a midline incision. There is a colostomy that is functioning. GENITOURINARY: Testes descended bilaterally. Testes are nontender and without mass. The patient has a right hydrocele. The patient has an uncircumcised male phallus with a traumatic hypospadias proximal to the glans penis with a small 14-St Helenian Perez catheter in place that is draining relatively clear urine out. There is no significant penile drainage at this time. For the remaining physical examination systems, please refer to the admission history and physical on the chart. LABORATORY STUDIES: White blood cell count is 7230, hemoglobin is 8 and platelets are 115,000. The patient's creatinine is elevated at 1.41, which seems to be relatively stable during his hospitalization. His calcium was low at 8 and it is better at 8.4. Urinalysis significant for microhematuria, bacteruria and pyuria. Urine culture revealed Citrobacter freundii that is resistant to the Levaquin the patient is currently taking. It is sensitive to Rocephin. ASSESSMENT 1. Neurogenic bladder. 2. Acute urinary retention. 3. Mixed up urinary incontinence. 4. Severe traumatic hypospadias. 5. History of urolithiasis. 6. Complicated urinary tract infection. 7. Right hydrocele. 8. Anemia. 9. Thrombocytopenia. 10. Chronic renal insufficiency. 11. Hypocalcemia that is better. 12. Microhematuria. PLAN 1. I recommend holding anticoagulation at this time. Lovenox may be utilized. 2. I offered the patient the option of suprapubic cystostomy due to the fact that his penis has been now iatrogenically damaged. He will consider this option. 3. The patient expressed desire to change his followup with urology to me due to my closer proximity to his home than Dr. Foote. 4. I will order a CT scan of the abdomen and pelvis to evaluate for any recurrent urolithiasis. Thank you very much for involving us in the care of your patient. Will be happy to follow him along with you, as well as an outpatient. Job#: [id number] RI cc:SERA MONCADA MD
[2017-11-21 10:21] LABS: ANISOCYTOSIS SLIGHT; EOSINOPHILS % (MANUAL) 1 % (0-7); LYMPHOCYTES % (MANUAL) 15 % (19-48); METAMYELOCYTES % (MANUAL) 5 % (0-0); MONOCYTES % (MANUAL) 14 % (3.4-9.0); MYELOCYTES % (MANUAL) 3 % (0-0); NEUTROPHILS % (MANUAL) 52 % (40-74); PROMYELOCYTES % (MANUAL) 1 % (0-0)
[2017-11-21 10:22] LABS: HYPOCHROMASIA SLIGHT; PLATELET ESTIMATE SLIGHTLY DECREASED; PLATELET MORPHOLOGY COMMENT FEW LARGE; POIKILOCYTOSIS SLIGHT; RBC MORPHOLOGY COMMENT NORMAL
[2017-11-21] MEDS: CEFTRIAXONE SOD 1 GM VIAL IV SCH (10:33)
[2017-11-21] MEDS: BALSAM PERU/CASTOR OIL 60 GM OINT...G. TP SCH ×2 (10:33→17:00)
[2017-11-21] MEDS: COLLAGENASE OINTMENT 30 GM TUBE TP SCH (10:33)
[2017-11-21] MEDS: NEOMYCIN/POLYMYXIN/BACITRACIN 15 GM TUBE TOP SCH ×3 (10:33→20:33)
--- NOTE | 2017-11-21 10:57 | Diagnostic Imaging Report ---
PROCEDURE: CT ABDOMEN AND PELVIS WITHOUT CONTRAST COMPARISON:None. INDICATIONS:Renal stones. TECHNIQUE: Stone protocol Volumetric CT abdomen and pelvis. No intravenous or enteric contrast. Multiplanar reformatted images. FINDINGS: Bibasilar interstitial scar. No pleural effusions. Normal heart size. Liver: Multiple calcified granulomas. The otherwise, grossly unremarkable. Gallbladder: The calcified stones measuring up to 1.1 cm in diameter. No bile duct dilation. Pancreas: Normal Spleen: Normal Adrenal glands: Normal Urinary bladder: Decompressed by Perez catheter. Prostate: Normal Kidneys: Right: The right kidney resides low within the abdomen in keeping with incomplete distention. No stones. Exophytic cysts measure 4.8 and 5 cm in maximal diameter. A 2.4 x 3.6 x 2.4 cm fat attenuation mass extends to the parapelvic region (image 92 and 93, series 3). No stones. No hydronephrosis. Mild vascular calcification. Left: Normal. Mild arteriosclerosis. No stones. Bowel: Normal caliber. Left lower quadrant ostomy with APR. peristomal hernia; small bowel extends into the peristomal hernia without evidence of obstruction. Vasculature: Mild scattered atherosclerosis and multifocal arteriosclerosis. Normal caliber. Lymph nodes: Normal Skeleton: Multilevel degenerative disc disease. Bilateral L4 pars interarticularis defects with grade 2 anterolisthesis of L4 on L5. Complete loss of disc space height at L4-L5. Soft tissues: Fat containing inguinal hernias bilaterally. Study limitations: Extensive beam hardening artifact through the upper abdomen secondary to arm positioning. CONCLUSION: 1. No nephrolithiasis. 2. 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 3. Exophytic simple right renal cysts. 4. Postoperative sequela of APR with associated colostomy in keeping with reported colon cancer history. 5. Cholelithiasis. Dictated by: Sherif Null M.D. on 11/21/2017 at 10:57 Electronically approved by: Sherif Null M.D. on 11/21/2017 at 10:57
--- NOTE | 2017-11-21 14:27 | Consultation ---
DATE OF CONSULTATION: November 21, 2017 CARDIAC CONSULTATION REASON FOR CONSULTATION: Multiple medical health problems including cardiac, vascular, etc., etc. HISTORY: An 82-year-old gentleman who is known with longstanding history of atrial fibrillation. Patient is also known to be diabetic. He does have chronic renal insufficiency. He is bedridden. He had a recent amputation of the great toe. Following that, patient was maintained on antibiotics. He was in [facility] recovering. Of interest also, he does have chronic venous insufficiency and chronic swelling of the lower extremities of many years' duration. Probably he does have also significant coronary artery disease. Regardless, patient was at [facility]. He came to this institution on the 18 of November with nosebleed. His INR was 10. He had fresh frozen plasma, and he had other medication. His warfarin was stopped. His medication adjusted. Patient is on Lasix and metolazone. It seems his renal function is worsening. His BUN at 58, creatinine of 1.4. He does have cellulitis and ulcer on the right foot. He does have chronic changes on the left leg. Patient is telling me he is staying at home. He does have good family support with his daughter. His problem started with osteomyelitis, and he needed to have amputation of his right great toe. Since that time, he is bedridden and he is not able to move and to do much of activity. He does have chronic swelling and discoloration of the lower extremities with repeated infection. He does have shortness of breath on minimal activity. His activities really are limited. Surprisingly, there is no angina and there is no history of myocardial infarction. REVIEW OF SYSTEMS: Was extensive to all systems. Only pertinent positive and negative ones will be mentioned. CARDIAC: As per above. PULMONARY: As per above. GENERAL: Weakness, failure to thrive, chronically ill. HEENT: Remarkable for decreased hearing. Remarkable for admission with epistaxis. HEMATOLOGY: Easy bruising and bleeding. GI: Poor appetite. : Difficult urination. SKIN: Multiple bruises and ecchymosis. ENDOCRINE: There is history of diabetes mellitus. SOCIAL HISTORY: He is staying with his daughter. He is nonsmoker and nonalcohol drinker. PAST MEDICAL HISTORY 1. Diabetes mellitus with severe end-organ damage. 2. Severe peripheral neuropathy. 3. Chronic atrial fibrillation. 4. Hypertension. 5. Hypothyroidism. 6. Status post amputation of the great toe. 7. Repeated leg infection and repeated venous stasis and changes of the lower extremities. 8. Chronic volume overload. 9. Patient on midodrine. FAMILY HISTORY: Several members of the family with history of diabetes mellitus and coronary artery disease. PHYSICAL EXAMINATION GENERAL: Morbidly obese gentleman. VITAL SIGNS: Height of 5 feet 10 inches, weight of 220. HEENT: Pupils are reactive. NECK: No elevation of jugular venous pulsation. CHEST: Decreased lung expansion with few coarse crackles. HEART: Irregularly irregular rate of atrial fibrillation. Normal 1st and 2nd heart sounds. Tricuspid regurgitation murmur is noted. ABDOMEN: Soft. Colostomy. EXTREMITIES: Severe ecchymosis and bruises all over in the arms and legs. He does have superficial wound of the right leg. He does have amputation of the right great toe. There are chronic skin changes indicative of chronic venous insufficiency and chronic leg edema. NEUROLOGIC: Able to move his extremities. LAB DATA: BUN of 58, creatinine of 1.4. INR today at 4. Hemoglobin of 8, hematocrit of 25%. EKG showing atrial fibrillation. IMPRESSION AND PLAN 1. Epistaxis secondary to over-coagulopathy with INR of 10 on admission. 2. Coagulopathy secondary to Coumadin. 3. Chronic atrial fibrillation. 4. Diabetes mellitus with severe end-organ damage. 5. Chronic renal insufficiency. 6. Chronic leg changes and chronic wounds and bruises. 7. Recent, a few months back, right toe amputation. 8. Peripheral arterial vascular disease. 9. Peripheral venous disease. Definitely patient does have signs to suggest possible pulmonary hypertension and right-sided failure. Definitely there is element of diastolic failure and possible systolic heart failure. Seems to be currently compensated. Cardiac-vazquez, my recommendations are as follows: 1. Stop verapamil and to continue beta yojana. 2. To continue Lasix but to hold Zaroxolyn because of elevation of BUN and creatinine. 3. Patient needs anticoagulation with precaution. Explained for him if he is taking antibiotics or other medication, he needs to adjust his dosage. Will await his INR before starting treatment. 4. An echocardiogram will be helpful to evaluate left ventricular systolic function, PA pressure, etc. I do not have any doubt in my mind he does have coronary artery disease, but he denies having angina. Regardless, he does have other comorbid conditions. For the time-being, treatment will be conservative. If patient develops chest pain, then further steps to be done. There is no family to discuss the plan, but I discussed it with the patient. He verbalized understanding. Job#: [id number] EV
--- NOTE | 2017-11-21 18:28 | Progress Note ---
DATE: INTERNAL MEDICINE PROGRESS NOTE The patient is doing well today. No significant findings. PHYSICAL EXAM HEART: Shows regular irregular heart rate. Normal S1 and S2 sounds. LUNGS: Clear bilaterally. ABDOMEN: Soft. EXTREMITIES: Show the hematoma on the right forearm. VITALS: Blood pressure 112/62, temperature 96.2, heart rate 68 per minute, respiratory rate is 20 per minute, oxygen saturation 96%. On the BMP, sodium 142, potassium 3.6, chloride 102, CO2 28, BUN 58, creatinine 1.41, glucose 172. On the CBC, white blood count 7.23, hemoglobin 8, hematocrit 25.1, and platelet count of 115,000. PT 37.2, INR 4.08 and PTT 86.6. AST 16, ALT 10, total bilirubin 0.5, alkaline phosphatase 202. IMPRESSION 1. Coagulopathy secondary to Coumadin. 2. Epistaxis which has resolved, status post cauterization. 3. Acute anemia secondary to bleeding. 4. Gwpce-lb-edmcvzi renal failure, stage 3. 5. Hypertension. 6. Chronic atrial fibrillation. 7. Hypothyroidism. 8. Hematoma of the right forearm. 9. Left leg wound. PLAN OF TREATMENT: Continue monitoring PT and INR. We are going to resume the Coumadin when INR is less than 3. Continue twice a day. Folic acid 1 mg daily. Melatonin 5 mg at night. Continue Tylenol 650 mg q.4 h. as needed. Calcium carbonate 500 mg twice a day. Furosemide 40 mg daily. Metoprolol 50 mg twice a day. Rocephin 1 g IV daily. Ferrous sulfate 325 mg daily. Levothyroxine 100 mcg daily. Midodrine 2.5 mg 3 times a day. Continue Protonix 40 mg twice a day. Collagenase ointment 1 g daily. He also has UTI for which reason he is taking Rocephin. Job#: [id number] GRETTA
[2017-11-21] MEDS: ACETAMINOPHEN 325 MG TAB PO PRN (18:45)
[2017-11-21] MEDS: MELATONIN 5 MG TABLET PO SCH (20:50)
[2017-11-22] VITALS (8 sets, daily range): BP systolic 114–152; BP diastolic 60–81
[2017-11-22] MEDS: LEVOTHYROXINE SODIUM 100 MCG TAB PO SCH (05:15)
[2017-11-22] MEDS: ONDANSETRON HCL INJ 2 MG/ML VIAL IV PRN (06:00)
[2017-11-22] MEDS: SALINE 0.65% NAS SOLN 1 SPRAY BTL SCH ×6 (06:00→22:00)
[2017-11-22 06:49] LABS: BASOPHILS # (AUTO) 0.1 (0.0-0.1); BASOPHILS % 0.6 % (0.0-1.0); EOSINOPHILS % 0.1 % (0.0-6.0); HEMOGLOBIN 8.7 g/dL (14.0-18.0); LYMPHOCYTES # (AUTO) 0.7 (1.0-3.2); LYMPHOCYTES % 7.2 % (18.0-39.1); MEAN CORPUSCULAR HEMOGLOBIN 29.7 pg (28-32); MEAN CORPUSCULAR HGB CONC 32.2 g/dL (31-35); MEAN CORPUSCULAR VOLUME 92.2 fL (81-99); MONOCYTES # (AUTO) 1.6 (0.2-0.8); MONOCYTES % 16.2 % (4.4-11.3); NEUTROPHILS # (AUTO) 5.7 (2.1-6.9); NEUTROPHILS % 56.8 % (38.7-80.0); PLATELET COUNT 130 x10e3/uL (140-360); RED BLOOD COUNT 2.93 x10e6/uL (4.3-5.7); RED CELL DISTRIBUTION WIDTH 19.2 % (11.7-14.4)
[2017-11-22 07:04] LABS: INR 4.93; PROTHROMBIN TIME 43.1 seconds (11.9-14.5)
[2017-11-22 07:28] LABS: THYROID STIMULATING HORMONE 1.77 uIU/mL (0.350-4.940)
[2017-11-22 07:31] LABS: ALBUMIN 2.7 g/dL (3.5-5.0); ALBUMIN/GLOBULIN RATIO 0.8 (0.8-2.0); ANION GAP 19.1 mmol/L (8-16); CREATININE, SERUM 1.5 mg/dL (0.72-1.25); POTASSIUM 4.1 mmol/L (3.5-5.1)
[2017-11-22] MEDS ORDERED: PHYTONADIONE 10 MG/ML AMP SQ ONE (08:00)
[2017-11-22] MEDS: NEOMYCIN/POLYMYXIN/BACITRACIN 15 GM TUBE TOP SCH ×3 (08:27→20:50)
[2017-11-22] MEDS: FLUCONAZOLE 100 MG TAB PO SCH (08:27)
[2017-11-22] MEDS: METOPROLOL TARTRATE 50 MG TAB PO SCH ×2 (08:27→18:23)
[2017-11-22] MEDS: CEFTRIAXONE SOD 1 GM VIAL IV SCH (08:27)
[2017-11-22] MEDS: PANTOPRAZOLE 40 MG 10ML VIAL IV SCH ×2 (08:27→18:22)
[2017-11-22] MEDS: MAGNESIUM OXIDE 400 MG TAB PO SCH ×2 (08:27→18:23)
[2017-11-22] MEDS: FUROSEMIDE 40 MG TAB PO SCH (08:27)
[2017-11-22] MEDS: MIDODRINE 2.5 MG TAB PO SCH (08:27)
[2017-11-22] MEDS: FOLIC ACID 1 MG TAB PO SCH (08:27)
[2017-11-22] MEDS: FERROUS SULFATE 325 MG TAB PO SCH (08:27)
[2017-11-22] MEDS: CALCIUM CARBONATE 500 MG CHEWABLE TABS PO SCH ×2 (08:27→18:23)
[2017-11-22] MEDS: ALLOPURINOL 300 MG TAB PO SCH (08:27)
[2017-11-22] MEDS: BUSPIRONE HCL 5 MG TAB PO SCH ×2 (08:27→18:22)
[2017-11-22 08:50] LABS: LYMPHOCYTES % (MANUAL) 7 % (19-48); METAMYELOCYTES % (MANUAL) 5 % (0-0); MONOCYTES % (MANUAL) 10 % (3.4-9.0); MYELOCYTES % (MANUAL) 1 % (0-0); NEUTROPHILS % (MANUAL) 75 % (40-74); NUCLEATED RED BLOOD CELLS 1
[2017-11-22] MEDS: BALSAM PERU/CASTOR OIL 60 GM OINT...G. TP SCH ×2 (08:59→18:23)
[2017-11-22 09:21] LABS: ANISOCYTOSIS SLIGHT; HYPOCHROMASIA SLIGHT; PLATELET ESTIMATE SLIGHTLY DECREASED; PLATELET MORPHOLOGY COMMENT FEW LARGE; RBC MORPHOLOGY COMMENT NORMAL
[2017-11-22] MEDS: COLLAGENASE OINTMENT 30 GM TUBE TP SCH (13:42)
--- NOTE | 2017-11-22 17:13 | Progress Note ---
DATE: November 22, 2017 INTERNAL MEDICINE PROGRESS NOTE SUBJECTIVE: Patient is doing well. No significant complaints. PHYSICAL EXAM: HEART: Shows irregularly irregular heart rate, normal S1 and S2 sounds. LUNGS: Clear bilaterally. ABDOMEN: Soft. EXTREMITIES: Show open wound on the left leg and a hematoma on the right forearm. VITAL SIGNS: Blood pressure 139/75, temperature 97.2, heart rate 91 per minute, respiratory rate is 18 per minute, oxygen saturation is 94%. BLOOD WORK: We have a BMP with a sodium 142, potassium 4.1, chloride 100, CO2 27, BUN 44, creatinine 1.50, glucose 307. On the CBC: White blood count 10.0, hemoglobin 8.7, hematocrit 27.0, platelet count 130,000. PT 43.1, INR 4.93, PTT 86.6. AST 12, ALT 11, total bilirubin 0.9, alkaline phosphatase 197. FINAL IMPRESSION: 1. Coagulopathy secondary to Coumadin. 2. Acute anemia secondary to epistaxis. 3. Acute renal insufficiency on chronic renal insufficiency stage 3. 4. Chronic atrial fibrillation. 5. Essential hypertension. 6. Acquired hypothyroidism. 7. Left leg wounds. 8. Physical deconditioning. PLAN OF TREATMENT: We are going to continue allopurinol 300 mg daily. BuSpar 7.5 mg twice a day. Folic acid 1 mg daily. Melatonin 5 mg at bedtime. Ceftriaxone 1 gram IV piggyback once a day because of the UTI. Calcium carbonate 500 mg twice a day. Furosemide 40 mg daily. Metoprolol 50 mg twice a day. castor oil 1 application twice a day. Ferrous sulfate 325 mg daily. Levothyroxine 100 mcg daily. Protonix 40 mg twice a day. Collagenase ointment 1 gram daily to affected area topically. Fluconazole 100 mg daily. Magnesium oxide 400 mg twice a day. Neomycin/polymyxin/Bacitracin 3 times a day. Tylenol 650 mg q.4 h. He has also got a urinary tract infection with a gram-negative bacteria, reason for which she is taking Rocephin. We are waiting on the culture on the penis discharge. Dr. Donaldson is on the case from urology, Dr. Cresencio Johnson for ENT, Dr. Leos for cardiology, Dr. Jackson for hematology, and Dr. Mansoor Zee for surgery due to the hematoma on the right forearm which he is not going to drain because of the INR being high. Job#: [id number] EV
[2017-11-22] MEDS: MELATONIN 5 MG TABLET PO SCH (20:49)
[2017-11-23] VITALS (7 sets, daily range): BP systolic 119–142; BP diastolic 73–81
[2017-11-23] MEDS: LEVOTHYROXINE SODIUM 100 MCG TAB PO SCH (05:14)
[2017-11-23] MEDS: SALINE 0.65% NAS SOLN 1 SPRAY BTL SCH ×5 (05:16→20:47)
[2017-11-23] MEDS: BUSPIRONE HCL 5 MG TAB PO SCH ×2 (08:24→16:22)
[2017-11-23] MEDS: CEFTRIAXONE SOD 1 GM VIAL IV SCH (08:24)
[2017-11-23] MEDS: FLUCONAZOLE 100 MG TAB PO SCH (08:24)
[2017-11-23] MEDS: PANTOPRAZOLE 40 MG 10ML VIAL IV SCH ×2 (08:24→16:21)
[2017-11-23] MEDS: FERROUS SULFATE 325 MG TAB PO SCH (08:25)
[2017-11-23] MEDS: ALLOPURINOL 300 MG TAB PO SCH (08:25)
[2017-11-23] MEDS: FOLIC ACID 1 MG TAB PO SCH (08:25)
[2017-11-23] MEDS: NEOMYCIN/POLYMYXIN/BACITRACIN 15 GM TUBE TOP SCH ×3 (08:25→20:46)
[2017-11-23] MEDS: FUROSEMIDE 40 MG TAB PO SCH (08:25)
[2017-11-23] MEDS: CALCIUM CARBONATE 500 MG CHEWABLE TABS PO SCH ×2 (08:25→16:22)
[2017-11-23] MEDS: COLLAGENASE OINTMENT 30 GM TUBE TP SCH (08:25)
[2017-11-23] MEDS: MAGNESIUM OXIDE 400 MG TAB PO SCH ×2 (08:25→16:22)
[2017-11-23] MEDS: BALSAM PERU/CASTOR OIL 60 GM OINT...G. TP SCH ×2 (08:25→16:22)
[2017-11-23] MEDS: METOPROLOL TARTRATE 50 MG TAB PO SCH ×2 (08:26→16:22)
[2017-11-23 08:37] LABS: BASOPHILS # (AUTO) 0.1 (0.0-0.1); BASOPHILS % 0.8 % (0.0-1.0); EOSINOPHILS # (AUTO) 0.1 (0.0-0.4); EOSINOPHILS % 0.9 % (0.0-6.0); HEMATOCRIT 28.7 % (38.2-49.6); HEMOGLOBIN 9.1 g/dL (14.0-18.0); LYMPHOCYTES # (AUTO) 0.8 (1.0-3.2); LYMPHOCYTES % 7.9 % (18.0-39.1); MEAN CORPUSCULAR HEMOGLOBIN 29.4 pg (28-32); MEAN CORPUSCULAR HGB CONC 31.7 g/dL (31-35); MEAN CORPUSCULAR VOLUME 92.9 fL (81-99); MONOCYTES # (AUTO) 1.8 (0.2-0.8); MONOCYTES % 17.3 % (4.4-11.3); NEUTROPHILS # (AUTO) 5.7 (2.1-6.9); NEUTROPHILS % 54.4 % (38.7-80.0); PLATELET COUNT 153 x10e3/uL (140-360); RED BLOOD COUNT 3.09 x10e6/uL (4.3-5.7); RED CELL DISTRIBUTION WIDTH 18.8 % (11.7-14.4)
[2017-11-23 09:08] LABS: INR 5.35
[2017-11-23 09:14] LABS: ANISOCYTOSIS SLIGHT; BAND NEUTROPHILS % (MANUAL) 2 %; LYMPHOCYTES % (MANUAL) 10 % (19-48); MONOCYTES % (MANUAL) 2 % (3.4-9.0); NEUTROPHILS % (MANUAL) 86 % (40-74); PLATELET ESTIMATE ADEQUATE; PLATELET MORPHOLOGY COMMENT NORMAL; RBC MORPHOLOGY COMMENT ABNORMAL
--- NOTE | 2017-11-23 13:52 | Diagnostic Imaging Report ---
EXAMINATION: CHEST SINGLE (PORTABLE) INDICATION: \S\Cough COMPARISON: 11/19/2017 FINDINGS: AP view TUBES and LINES: None. LUNGS: Limited by body habitus. Low lung volumes. Left lung, especially lower lung field opacification. PLEURA: No pneumothorax. Possible small left pleural effusion. HEART AND MEDIASTINUM: Enlarged cardiac silhouette. BONES AND SOFT TISSUES: No acute osseous lesion. Soft tissues are unremarkable. UPPER ABDOMEN: No free air under the diaphragm. IMPRESSION: Left lung, especially lower lung field opacification, concerning for pneumonia. Possible small left pleural effusion. Signed by: Dr. Karlos Lemus MD on 11/23/2017 1:49 PM
[2017-11-23] MEDS: ACETAMINOPHEN 325 MG TAB PO PRN (14:32)
--- NOTE | 2017-11-23 15:34 | Progress Note ---
DATE: November 23, 2017 INTERNAL MEDICINE PROGRESS NOTE SUBJECTIVE: Patient is sleeping comfortably. No significant complaints. PHYSICAL EXAMINATION HEART: Irregularly irregular heart rate. Normal S1, S2 sounds. LUNGS: Clear bilaterally. ABDOMEN: Soft. EXTREMITIES: No evidence of cyanosis, edema or trauma except for the hematoma on the right arm and mild superficial wound on the right leg. VITALS: Blood pressure 142/81. Temperature 95.8 degrees Fahrenheit. Heart rate 91 per minute. Respiratory rate is 18 per minute. Oxygen saturation 97%. LABS: On the BMP, sodium 142, potassium 4.1, chloride 100, CO2 27, BUN 44, creatinine 1.50. Glucose 307. On the CBC, white blood count 10.4, hemoglobin 9.1, hematocrit 28.7, platelet count 153,000. PT 46.0, INR 5.35, PTT 86.6. AST 12, ALT 11, total bilirubin 0.9, alkaline phosphatase 197. ASSESSMENT 1. Coagulopathy secondary to Coumadin. Still has not resolved yet, even with the fact that the Coumadin is on hold. 2. Chronic atrial fibrillation. 3. Coronary artery disease. 4. Epistaxis, which is completely resolved. 5. Acute anemia secondary to epistaxis and anemia of chronic disease. 6. Irgtb-zy-xphudif renal insufficiency. 7. Hypothyroidism. 8. Hematoma in the right forearm. 9. Right leg wound. PLAN: Continue monitoring PT and INR. Hematology is on the case also. Continue allopurinol 300 mg daily, BuSpar 7.5 mg twice a day, folic acid 1 mg daily, melatonin 5 mg at bedtime, ceftriaxone 1 gram IV piggyback once a day for UTI. Continue calcium carbonate 500 mg twice a day, furosemide 40 mg daily, metoprolol 50 mg twice a day, ferrous sulfate 325 mg daily, levothyroxine 100 mcg daily, Protonix 40 mg twice a day, collagenase ointment 1 gram daily to affected area topically. Continue fluconazole 100 mg daily, magnesium oxide 400 mg twice a day, Tylenol 650 mg q.4 h. as needed. Job#: [id number]
[2017-11-23] MEDS ORDERED: PHYTONADIONE 5 MG TAB PO ONE (18:00)
[2017-11-23] MEDS ORDERED: PHYTONADIONE 10 MG/ML AMP SC ONE (19:00)
[2017-11-23] MEDS: MELATONIN 5 MG TABLET PO SCH (20:46)
[2017-11-24 04:00] VITALS: BP 127/60
[2017-11-24] MEDS: SALINE 0.65% NAS SOLN 1 SPRAY BTL SCH ×5 (05:39→21:28)
[2017-11-24] MEDS: LEVOTHYROXINE SODIUM 100 MCG TAB PO SCH (05:40)
[2017-11-24 07:00] VITALS: BP 140/91
[2017-11-24 07:33] VITALS: BP 120/66
[2017-11-24 08:14] LABS: BASOPHILS % 0.4 % (0.0-1.0); EOSINOPHILS # (AUTO) 0.1 (0.0-0.4); EOSINOPHILS % 1.1 % (0.0-6.0); HEMATOCRIT 26.8 % (38.2-49.6); HEMOGLOBIN 8.5 g/dL (14.0-18.0); LYMPHOCYTES # (AUTO) 0.8 (1.0-3.2); LYMPHOCYTES % 7.6 % (18.0-39.1); MEAN CORPUSCULAR HEMOGLOBIN 29.9 pg (28-32); MEAN CORPUSCULAR HGB CONC 31.7 g/dL (31-35); MEAN CORPUSCULAR VOLUME 94.4 fL (81-99); MONOCYTES # (AUTO) 1.7 (0.2-0.8); NEUTROPHILS # (AUTO) 5.8 (2.1-6.9); NEUTROPHILS % 58.8 % (38.7-80.0); PLATELET COUNT 167 x10e3/uL (140-360); RED BLOOD COUNT 2.84 x10e6/uL (4.3-5.7); RED CELL DISTRIBUTION WIDTH 18.5 % (11.7-14.4)
[2017-11-24] MEDS: FLUCONAZOLE 100 MG TAB PO SCH (08:18)
[2017-11-24] MEDS: BUSPIRONE HCL 5 MG TAB PO SCH ×2 (08:18→16:50)
[2017-11-24] MEDS: METOPROLOL TARTRATE 50 MG TAB PO SCH ×2 (08:18→16:50)
[2017-11-24] MEDS: FERROUS SULFATE 325 MG TAB PO SCH (08:18)
[2017-11-24] MEDS: PANTOPRAZOLE 40 MG 10ML VIAL IV SCH ×2 (08:18→16:50)
[2017-11-24] MEDS: ALLOPURINOL 300 MG TAB PO SCH (08:18)
[2017-11-24] MEDS: CEFTRIAXONE SOD 1 GM VIAL IV SCH (08:18)
[2017-11-24] MEDS: CALCIUM CARBONATE 500 MG CHEWABLE TABS PO SCH ×2 (08:18→16:51)
[2017-11-24] MEDS: FUROSEMIDE 40 MG TAB PO SCH ×2 (08:18→16:50)
[2017-11-24] MEDS: FOLIC ACID 1 MG TAB PO SCH (08:18)
[2017-11-24] MEDS: MAGNESIUM OXIDE 400 MG TAB PO SCH ×2 (08:18→16:50)
[2017-11-24 08:28] LABS: PARTIAL THROMBOPLASTIN TIME 97.9 seconds (23.8-35.5)
[2017-11-24 08:35] LABS: ANION GAP 14.9 mmol/L (8-16); CALCIUM 8.8 mg/dL (8.4-10.2); CREATININE, SERUM 1.46 mg/dL (0.72-1.25); POTASSIUM 3.9 mmol/L (3.5-5.1)
[2017-11-24 08:43] LABS: INR 5.16; PROTHROMBIN TIME 44.7 seconds (11.9-14.5)
[2017-11-24 09:35] LABS: ANISOCYTOSIS SLIGHT; LYMPHOCYTES % (MANUAL) 14 % (19-48); MONOCYTES % (MANUAL) 10 % (3.4-9.0); NEUTROPHILS % (MANUAL) 76 % (40-74); PLATELET MORPHOLOGY COMMENT NORMAL; RBC MORPHOLOGY COMMENT ABNORMAL
[2017-11-24 09:36] LABS: PLATELET ESTIMATE ADEQUATE
[2017-11-24] MEDS: BALSAM PERU/CASTOR OIL 60 GM OINT...G. TP SCH ×2 (10:05→16:51)
[2017-11-24] MEDS: NEOMYCIN/POLYMYXIN/BACITRACIN 15 GM TUBE TOP SCH ×3 (10:05→21:00)
[2017-11-24] MEDS: COLLAGENASE OINTMENT 30 GM TUBE TP SCH (10:05)
[2017-11-24 11:26] VITALS: BP 114/70
[2017-11-24] MEDS ORDERED: PHYTONADIONE 5 MG TAB PO ONE (11:45)
[2017-11-24] MEDS ORDERED: PHYTONADIONE 10 MG/ML AMP SC ONE (13:00)
--- NOTE | 2017-11-24 15:43 | Progress Note ---
DATE: November 24, 2017 INTERNAL MEDICINE PROGRESS NOTE SUBJECTIVE: He is doing well, no significant complaint. PHYSICAL EXAMINATION VITALS: Blood pressure 114/70. Temperature 95.7. Heart rate 91 per minute. Respiratory rate is 20 per minute. Oxygen saturation 99%. HEART: Irregularly irregular heart rate. Normal S1, S2 sounds. LUNGS: Clear bilaterally. ABDOMEN: Soft. EXTREMITIES: A hematoma on the right forearm, which is reducing in size. Bilateral leg wounds, which are very superficial. LABS: On the blood work, we have BMP with sodium 139, potassium 3.9, chloride 96, CO2 32, BUN 42, creatinine 1.46. Glucose 355. On the CBC, white blood count 9.87, hemoglobin 8.5, hematocrit 26.8, platelet count 167,000. PT 44.7, INR 5.16, PTT 97.9. AST 12, ALT 11, total bilirubin 0.9, alkaline phosphatase 197. FINAL IMPRESSION 1. Coagulopathy, which is still elevated. 2. Chronic atrial fibrillation. 3. Coronary artery disease. 4. Anemia of chronic disease on top of anemia which is hkspg-ya-mmdyzii anemia. 5. Chronic renal insufficiency, stage 3. 6. Diabetes mellitus, type 2, with chronic renal insufficiency. 7. Epistaxis, which has resolved. 8. Hypertension with hypertensive nephropathy. PLAN OF TREATMENT: The patient has received vitamin K. Of course, the Coumadin has been placed on hold. We are going to continue allopurinol 300 mg daily, BuSpar 7.5 mg twice a day, folic acid 1 mg daily, melatonin 5 mg at bedtime. Continue ceftriaxone 1 gram IV piggyback daily for UTI. Continue furosemide 40 mg daily and metoprolol 50 mg twice a day. Continue ferrous sulfate 325 mg daily, levothyroxine 100 mcg daily, Protonix 40 mg twice a day, collagenase ointment 1 gram daily, fluconazole 100 mg daily, magnesium oxide 400 mg twice a day, Tylenol 650 mg q.[address] Gris Cancino will be covering for me starting tomorrow, November 25 at 7 a.m. until December 02 at 7 a.m. Job#: [id number]
[2017-11-24 15:45] VITALS: BP 121/72
[2017-11-24] MEDS: ACETAMINOPHEN 325 MG TAB PO PRN (19:25)
[2017-11-24 20:00] VITALS: BP 114/72
[2017-11-24] MEDS: MELATONIN 5 MG TABLET PO SCH (21:00)
[2017-11-25] VITALS: BP 105/65
[2017-11-25 04:00] VITALS: BP 136/86
[2017-11-25] MEDS: SALINE 0.65% NAS SOLN 1 SPRAY BTL SCH ×5 (05:12→22:00)
[2017-11-25] MEDS: LEVOTHYROXINE SODIUM 100 MCG TAB PO SCH (05:12)
[2017-11-25 08:00] VITALS: BP 122/68
[2017-11-25] MEDS: CEFTRIAXONE SOD 1 GM VIAL IV SCH (08:05)
[2017-11-25] MEDS: PANTOPRAZOLE 40 MG 10ML VIAL IV SCH ×2 (08:05→17:10)
[2017-11-25] MEDS: CALCIUM CARBONATE 500 MG CHEWABLE TABS PO SCH ×2 (08:06→17:10)
[2017-11-25] MEDS: METOPROLOL TARTRATE 50 MG TAB PO SCH ×2 (08:06→17:10)
[2017-11-25] MEDS: FUROSEMIDE 40 MG TAB PO SCH ×2 (08:06→17:10)
[2017-11-25] MEDS: BUSPIRONE HCL 5 MG TAB PO SCH ×2 (08:06→17:10)
[2017-11-25] MEDS: ALLOPURINOL 300 MG TAB PO SCH (08:06)
[2017-11-25] MEDS: FOLIC ACID 1 MG TAB PO SCH (08:06)
[2017-11-25] MEDS: MAGNESIUM OXIDE 400 MG TAB PO SCH ×2 (08:06→17:10)
[2017-11-25] MEDS: FLUCONAZOLE 100 MG TAB PO SCH (08:06)
[2017-11-25] MEDS: FERROUS SULFATE 325 MG TAB PO SCH (08:06)
[2017-11-25] MEDS: COLLAGENASE OINTMENT 30 GM TUBE TP SCH (08:10)
[2017-11-25] MEDS: NEOMYCIN/POLYMYXIN/BACITRACIN 15 GM TUBE TOP SCH ×3 (08:10→22:43)
[2017-11-25] MEDS: BALSAM PERU/CASTOR OIL 60 GM OINT...G. TP SCH ×2 (08:11→17:10)
--- NOTE | 2017-11-25 09:54 | Progress Note ---
DATE: November 25, 2017 Mr. Sanches is an 82-year-old man with a history of coronary artery disease, renal failure, hypothyroidism, chronic atrial fibrillation, coronary artery disease that was on Coumadin, brought to the emergency room with Coumadin toxicity. PHYSICAL EXAMINATION GENERAL: Today, he is awake and alert. VITALS: Temperature is 95.2, blood pressure is 122/68. HEART: Irregularly irregular. LUNGS: Poor inspiratory effort. ABDOMEN: Soft. BLOOD WORK: Yesterday, was 3.9, creatinine 1.46, glucose very elevated at 355. White count 9.7, hemoglobin 8.5. Today, hematocrit 26.2. Coagulation: INR is still high at 5.16. ASSESSMENT AND PLAN 1. Coagulopathy secondary to Coumadin: INR is still elevated. Coumadin is on hold. 2. Chronic atrial fibrillation. 3. Coronary artery disease. 4. Epistaxis. 5. Acute anemia secondary to bleeding. 6. Bhkqg-qe-zdnnjux renal failure. 7. Hematoma of the right forearm. 8. Hypothyroidism. 9. Right leg wound. PLAN: At the present, is continue to monitor INR. Hematology is following the patient. Continue other medications. Continue to monitor electrolytes. All of this was discussed with the patient. All questions were answered to satisfaction. Job#: [id number] GRETTA
[2017-11-25 12:00] VITALS: BP 126/60
[2017-11-25 16:00] VITALS: BP 118/56
[2017-11-25] MEDS ORDERED: PHYTONADIONE 10 MG/ML AMP IV ONE (18:30)
[2017-11-25] MEDS ORDERED: PHYTONADIONE 10MG/ML 10 MG in SODIUM CHLORIDE 0.9% 50ML 50 ML IV ONE (19:00)
[2017-11-25] MEDS ORDERED: FUROSEMIDE INJ 10 MG/ML 4 ML VIAL IV ONE (19:45)
[2017-11-25 20:00] VITALS: BP 109/66
[2017-11-25] MEDS ORDERED: SODIUM CHLORIDE 0.9% 250ML 250 ML ONE (21:06)
[2017-11-25] MEDS: MELATONIN 5 MG TABLET PO SCH (22:43)
[2017-11-26] VITALS: BP_SYST 115; BP_SYST 177; BP_DIAS 107; BP_DIAS 68
[2017-11-26 04:00] VITALS: BP 155/70
[2017-11-26] MEDS: LEVOTHYROXINE SODIUM 100 MCG TAB PO SCH (06:06)
[2017-11-26] MEDS: SALINE 0.65% NAS SOLN 1 SPRAY BTL SCH ×5 (06:06→22:00)
[2017-11-26 06:48] LABS: BASOPHILS % 0.4 % (0.0-1.0); EOSINOPHILS # (AUTO) 0.1 (0.0-0.4); EOSINOPHILS % 1.2 % (0.0-6.0); HEMATOCRIT 24.9 % (38.2-49.6); LYMPHOCYTES # (AUTO) 1.1 (1.0-3.2); LYMPHOCYTES % 11.7 % (18.0-39.1); MEAN CORPUSCULAR HEMOGLOBIN 29.4 pg (28-32); MEAN CORPUSCULAR HGB CONC 32.1 g/dL (31-35); MEAN CORPUSCULAR VOLUME 91.5 fL (81-99); MONOCYTES # (AUTO) 1.6 (0.2-0.8); MONOCYTES % 16.6 % (4.4-11.3); NEUTROPHILS # (AUTO) 5.3 (2.1-6.9); NEUTROPHILS % 54.8 % (38.7-80.0); PLATELET COUNT 159 x10e3/uL (140-360); RED BLOOD COUNT 2.72 x10e6/uL (4.3-5.7); RED CELL DISTRIBUTION WIDTH 18.2 % (11.7-14.4)
[2017-11-26 07:05] LABS: INR 1.75; PROTHROMBIN TIME 19.2 seconds (11.9-14.5)
[2017-11-26 07:21] LABS: ALBUMIN 2.6 g/dL (3.5-5.0); ALBUMIN/GLOBULIN RATIO 0.8 (0.8-2.0); ANION GAP 13.8 mmol/L (8-16); CALCIUM 8.5 mg/dL (8.4-10.2); CREATININE, SERUM 1.88 mg/dL (0.72-1.25); POTASSIUM 3.8 mmol/L (3.5-5.1)
[2017-11-26 07:45] VITALS: BP 130/63
[2017-11-26] MEDS: FLUCONAZOLE 100 MG TAB PO SCH (08:00)
[2017-11-26] MEDS: PANTOPRAZOLE 40 MG 10ML VIAL IV SCH ×2 (08:01→17:16)
[2017-11-26] MEDS: BUSPIRONE HCL 5 MG TAB PO SCH ×2 (08:01→17:21)
[2017-11-26] MEDS: CEFTRIAXONE SOD 1 GM VIAL IV SCH (08:01)
[2017-11-26] MEDS: COLLAGENASE OINTMENT 30 GM TUBE TP SCH (08:02)
[2017-11-26] MEDS: FERROUS SULFATE 325 MG TAB PO SCH (08:02)
[2017-11-26] MEDS: METOPROLOL TARTRATE 50 MG TAB PO SCH ×2 (08:02→17:22)
[2017-11-26] MEDS: FOLIC ACID 1 MG TAB PO SCH (08:02)
[2017-11-26] MEDS: CALCIUM CARBONATE 500 MG CHEWABLE TABS PO SCH ×2 (08:02→17:21)
[2017-11-26] MEDS: FUROSEMIDE 40 MG TAB PO SCH ×2 (08:02→17:21)
[2017-11-26] MEDS: NEOMYCIN/POLYMYXIN/BACITRACIN 15 GM TUBE TOP SCH ×3 (08:02→21:00)
[2017-11-26] MEDS: BALSAM PERU/CASTOR OIL 60 GM OINT...G. TP SCH ×2 (08:02→17:16)
[2017-11-26] MEDS: ALLOPURINOL 300 MG TAB PO SCH (08:02)
[2017-11-26] MEDS: MAGNESIUM OXIDE 400 MG TAB PO SCH ×2 (08:02→17:21)
[2017-11-26 08:40] LABS: BAND NEUTROPHILS % (MANUAL) 1 %; EOSINOPHILS % (MANUAL) 2 % (0-7); LYMPHOCYTES % (MANUAL) 13 % (19-48); MONOCYTES % (MANUAL) 18 % (3.4-9.0); NEUTROPHILS % (MANUAL) 65 % (40-74)
[2017-11-26 08:41] LABS: ANISOCYTOSIS SLIGHT; PLATELET ESTIMATE ADEQUATE; PLATELET MORPHOLOGY COMMENT FEW LARGE; RBC MORPHOLOGY COMMENT NORMAL
[2017-11-26 08:42] LABS: HYPOCHROMASIA SLIGHT
[2017-11-26] MEDS ORDERED: NEOMYCIN/POLYMYXIN/BACITRACIN 15 GM TUBE TOP SCH (09:00)
[2017-11-26] MEDS ORDERED: DEXTROSE 50% SYRINGE 50 ML IV PRN (09:15)
--- NOTE | 2017-11-26 10:10 | Progress Note ---
DATE: November 26, 2017 Mr. Sanches is an 82-year-old man with a history of chronic atrial fibrillation, diabetes, hypertension, hypothyroidism. He came to the emergency room complaining of nosebleed and elevated INR. Coumadin was put on hold. Today, the INR is 1.75. The patient has had problems with urinary retention, and he needs a suprapubic catheter. Now that the INR went down, we are going to hold the Coumadin until he has the suprapubic catheter placed, then we will restart the Coumadin. PHYSICAL EXAMINATION GENERAL: Today, he is awake. He is alert. He states he is feeling better. VITALS: Temperature is 96.3, blood pressure is 130/63. HEART: Irregularly irregular. LUNGS: Poor inspiratory effort. ABDOMEN: Distended and soft. LABS: On the blood work, white count is 9.67, hemoglobin 8, hematocrit 24.9. Potassium 3.8, creatinine 1.88, glucose very high at 413 today. Repeat one was 348. INR today went down to 1.75. Urine culture shows E. coli that is sensitive to several antibiotics. ASSESSMENT AND PLAN 1. Coagulopathy secondary to Coumadin. Coumadin is on hold. 2. Chronic atrial fibrillation. 3. Epistaxis. 4. Coronary artery disease. 5. Acute anemia secondary to bleeding. Continue to monitor CBC. 6. Tetdk-om-xfngbqo renal failure. 7. Hematoma of the right forearm. 8. Hypothyroidism. 9. Right leg wound. 10. Uncontrolled diabetes, type 2. 11. Urinary retention. 12. Urinary tract infection with Escherichia coli. The plan at the present time is to hold Coumadin so the patient can go for a suprapubic catheter. Continue to monitor INR. Continue to monitor electrolytes. The patient is on Rocephin 1 g IV, so continue the Rocephin. We are going to put him on ADA diet and sliding scale with insulin. All of this was discussed with the nurse. Job#: [id number]
[2017-11-26] MEDS ORDERED: INSULIN REGULAR, HUMAN 100 UNIT/1 ML 3ML VIAL SQ SCH (11:30)
[2017-11-26 12:00] VITALS: BP 126/65
[2017-11-26] MEDS: INSULIN REGULAR, HUMAN 100 UNIT/1 ML 3ML VIAL SQ SCH ×3 (12:03→21:10)
[2017-11-26] MEDS: ONDANSETRON HCL INJ 2 MG/ML VIAL IV PRN (14:46)
[2017-11-26 16:00] VITALS: BP 114/61
[2017-11-26] MEDS ORDERED: WARFARIN SOD 2 MG TAB PO SCH (17:00)
[2017-11-26 20:22] VITALS: BP 103/54
[2017-11-26] MEDS: MELATONIN 5 MG TABLET PO SCH (20:53)
[2017-11-26] MEDS: INSULIN DETEMIR 100 UNIT/ML PEN SQ SCH (21:00)
[2017-11-27] VITALS (7 sets, daily range): BP systolic 106–126; BP diastolic 59–67
[2017-11-27] MEDS: SALINE 0.65% NAS SOLN 1 SPRAY BTL SCH ×5 (05:35→22:27)
[2017-11-27] MEDS: LEVOTHYROXINE SODIUM 100 MCG TAB PO SCH (05:35)
[2017-11-27 07:01] LABS: INR 1.42; PROTHROMBIN TIME 16.3 seconds (11.9-14.5)
[2017-11-27 07:11] LABS: ALBUMIN 2.5 g/dL (3.5-5.0); ALBUMIN/GLOBULIN RATIO 0.7 (0.8-2.0); ANION GAP 14.7 mmol/L (8-16); CALCIUM 9.2 mg/dL (8.4-10.2); CREATININE, SERUM 1.86 mg/dL (0.72-1.25); POTASSIUM 3.7 mmol/L (3.5-5.1)
[2017-11-27] MEDS: INSULIN REGULAR, HUMAN 100 UNIT/1 ML 3ML VIAL SQ SCH ×4 (07:30→21:38)
[2017-11-27] MEDS: CALCIUM CARBONATE 500 MG CHEWABLE TABS PO SCH ×2 (08:19→16:37)
[2017-11-27] MEDS: INSULIN DETEMIR 100 UNIT/ML PEN SQ SCH ×2 (08:19→21:38)
[2017-11-27] MEDS: METOPROLOL TARTRATE 50 MG TAB PO SCH ×2 (08:19→16:37)
[2017-11-27] MEDS: FLUCONAZOLE 100 MG TAB PO SCH (08:19)
[2017-11-27] MEDS: CEFTRIAXONE SOD 1 GM VIAL IV SCH (08:19)
[2017-11-27] MEDS: FUROSEMIDE 40 MG TAB PO SCH (08:19)
[2017-11-27] MEDS: MAGNESIUM OXIDE 400 MG TAB PO SCH ×2 (08:19→16:37)
[2017-11-27] MEDS: BUSPIRONE HCL 5 MG TAB PO SCH ×2 (08:19→16:37)
[2017-11-27] MEDS: FOLIC ACID 1 MG TAB PO SCH (08:19)
[2017-11-27] MEDS: FERROUS SULFATE 325 MG TAB PO SCH (08:19)
[2017-11-27] MEDS: ALLOPURINOL 300 MG TAB PO SCH (08:19)
[2017-11-27] MEDS: PANTOPRAZOLE 40 MG 10ML VIAL IV SCH ×2 (08:19→16:37)
[2017-11-27] MEDS: COLLAGENASE OINTMENT 30 GM TUBE TP SCH (09:32)
[2017-11-27] MEDS: NEOMYCIN/POLYMYXIN/BACITRACIN 15 GM TUBE TOP SCH ×3 (09:32→21:54)
[2017-11-27] MEDS: BALSAM PERU/CASTOR OIL 60 GM OINT...G. TP SCH ×2 (09:32→18:12)
--- NOTE | 2017-11-27 09:41 | Progress Note ---
DATE: November 27, 2017 Mr. Sanches is an 82-year-old man with a history of chronic atrial fibrillation, diabetes, hypertension, hypothyroidism, who came to the emergency room with nosebleed and elevated INR. Coumadin was put on hold because the patient had Coumadin toxicity, and now is still on hold for suprapubic catheter that is going to be placed on Saturday. PHYSICAL EXAMINATION GENERAL: He is awake and alert. He states he is feeling okay. VITALS: Temperature is 96.4, blood pressure 115/67. HEART: Irregularly irregular. LUNGS: Poor inspiratory effort. ABDOMEN: Soft. BLOOD WORK: White count is 9.67, hemoglobin 8, hematocrit 24.9. Potassium 3.7, creatinine is 1.86. INR today is 1.42. ASSESSMENT AND PLAN 1. Coagulopathy secondary to Coumadin. 2. Chronic atrial fibrillation. 3. Epistaxis. 4. Coronary artery disease. 5. Acute anemia secondary to bleeding. 6. Vgjuc-ys-vweazvk renal failure. 7. Anemia secondary to bleeding. 8. Hypothyroidism. 9. Right leg wound. 10. Uncontrolled diabetes, type 2. 11. Urinary retention. 12. Urinary tract infection with Escherichia coli. PLAN: At the present time, as per urologist to hold anticoagulation. The patient is going to be taken to the OR apparently on Saturday to have a suprapubic catheter placed. Continue IV antibiotics. Continue to monitor CBC. ADA diet and sliding scale with insulin. All of this was discussed with the patient. All questions were answered to satisfaction. Job#: [id number] GRETTA
[2017-11-27] MEDS: MELATONIN 5 MG TABLET PO SCH (21:54)
[2017-11-28] VITALS (7 sets, daily range): BP systolic 105–134; BP diastolic 52–63
[2017-11-28] MEDS: LEVOTHYROXINE SODIUM 100 MCG TAB PO SCH (06:18)
[2017-11-28] MEDS: SALINE 0.65% NAS SOLN 1 SPRAY BTL SCH ×5 (06:30→22:00)
[2017-11-28 06:44] LABS: HEMATOCRIT 27.2 % (38.2-49.6); HEMOGLOBIN 8.7 g/dL (14.0-18.0); MEAN CORPUSCULAR HEMOGLOBIN 29.6 pg (28-32); MEAN CORPUSCULAR VOLUME 92.5 fL (81-99); PLATELET COUNT 168 x10e3/uL (140-360); RED BLOOD COUNT 2.94 x10e6/uL (4.3-5.7); RED CELL DISTRIBUTION WIDTH 18.4 % (11.7-14.4)
[2017-11-28 06:54] LABS: INR 1.43; PROTHROMBIN TIME 16.4 seconds (11.9-14.5)
[2017-11-28 07:14] LABS: ANION GAP 13.5 mmol/L (8-16); CALCIUM 8.7 mg/dL (8.4-10.2); CREATININE, SERUM 1.63 mg/dL (0.72-1.25); POTASSIUM 3.5 mmol/L (3.5-5.1)
[2017-11-28 07:24] LABS: ANISOCYTOSIS SLIGHT; BAND NEUTROPHILS % (MANUAL) 2 %; EOSINOPHILS % (MANUAL) 3 % (0-7); LYMPHOCYTES % (MANUAL) 12 % (19-48); METAMYELOCYTES % (MANUAL) 9 % (0-0); MONOCYTES % (MANUAL) 7 % (3.4-9.0); MYELOCYTES % (MANUAL) 7 % (0-0); NEUTROPHILS % (MANUAL) 60 % (40-74); RBC MORPHOLOGY COMMENT ABNORMAL
[2017-11-28 07:25] LABS: PLATELET ESTIMATE ADEQUATE; PLATELET MORPHOLOGY COMMENT NORMAL
[2017-11-28] MEDS: INSULIN REGULAR, HUMAN 100 UNIT/1 ML 3ML VIAL SQ SCH ×4 (07:30→22:00)
[2017-11-28] MEDS: FERROUS SULFATE 325 MG TAB PO SCH (08:19)
[2017-11-28] MEDS: METOPROLOL TARTRATE 50 MG TAB PO SCH (08:19)
[2017-11-28] MEDS: ALLOPURINOL 300 MG TAB PO SCH (08:19)
[2017-11-28] MEDS: CALCIUM CARBONATE 500 MG CHEWABLE TABS PO SCH ×2 (08:19→16:39)
[2017-11-28] MEDS: INSULIN DETEMIR 100 UNIT/ML PEN SQ SCH ×2 (08:19→21:59)
[2017-11-28] MEDS: BUSPIRONE HCL 5 MG TAB PO SCH ×2 (08:19→16:39)
[2017-11-28] MEDS: CEFTRIAXONE SOD 1 GM VIAL IV SCH (08:19)
[2017-11-28] MEDS: FOLIC ACID 1 MG TAB PO SCH (08:19)
[2017-11-28] MEDS: FUROSEMIDE 40 MG TAB PO SCH (08:19)
[2017-11-28] MEDS: MAGNESIUM OXIDE 400 MG TAB PO SCH ×2 (08:19→16:39)
[2017-11-28] MEDS: FLUCONAZOLE 100 MG TAB PO SCH (08:19)
[2017-11-28] MEDS: PANTOPRAZOLE 40 MG 10ML VIAL IV SCH ×2 (08:19→18:11)
[2017-11-28] MEDS: BALSAM PERU/CASTOR OIL 60 GM OINT...G. TP SCH ×2 (08:20→16:39)
[2017-11-28] MEDS: COLLAGENASE OINTMENT 30 GM TUBE TP SCH (08:20)
[2017-11-28] MEDS: NEOMYCIN/POLYMYXIN/BACITRACIN 15 GM TUBE TOP SCH ×3 (08:28→21:00)
--- NOTE | 2017-11-28 09:50 | Progress Note ---
DATE: November 28, 2017 Mr. Sanches is an 82-year-old man with a history of chronic atrial fibrillation, diabetes, hypertension, hypothyroidism. He came to the emergency room with a supratherapeutic INR and nosebleed. Coumadin was put on hold. The patient is going to need a suprapubic catheter, so Coumadin is still on hold for the procedure tomorrow. PHYSICAL EXAMINATION GENERAL: Today, he is awake and alert. He is feeling a little better. VITALS: Temperature is 97.1. Blood pressure is 134/63. HEART: Irregularly irregular, 90 per minute. LUNGS: Clear to auscultation. ABDOMEN: Distended and soft. BLOOD WORK: White count is 12.59, hemoglobin 8.7, hematocrit 27.2. Potassium 3.5, creatinine 1.63, GFR 41, glucose 139. INR today is 1.43. ASSESSMENT AND PLAN 1. Coagulopathy secondary to Coumadin. 2. Chronic atrial fibrillation. 3. Epistaxis, resolved. 4. Coronary artery disease. 5. Acute anemia secondary to bleed. 6. Xfjml-oj-zpijtja renal failure. 7. Hypothyroidism. 8. Uncontrolled diabetes, type 2. 9. Urinary retention. 10. Urinary tract infection with Escherichia coli. The plan at the present time is to continue to hold anticoagulation for suprapubic catheter in the morning. Continue IV antibiotics. Continue to monitor electrolytes. ADA diet and sliding scale with insulin. Once the patient has the procedure done, we will probably be able to restart anticoagulation. All of this was discussed with the patient, and questions were answered to satisfaction. I spent more than 30 minutes examining the patient, reviewing overnight events, x-rays and lab results, and discussing the plan of care. Job#: [id number]
[2017-11-28] MEDS ORDERED: POTASSIUM CHLORIDE 20 MEQ TAB CR PO STA (11:33)
[2017-11-28] MEDS: METOPROLOL TARTRATE 25 MG TAB PO SCH (18:11)
[2017-11-28] MEDS: MELATONIN 5 MG TABLET PO SCH (21:59)
[2017-11-28] MEDS: ACETAMINOPHEN 325 MG TAB PO PRN (22:13)
[2017-11-29] VITALS: BP 109/60
[2017-11-29 04:00] VITALS: BP 121/82
[2017-11-29] MEDS: SALINE 0.65% NAS SOLN 1 SPRAY BTL SCH ×5 (05:24→21:34)
[2017-11-29] MEDS: LEVOTHYROXINE SODIUM 100 MCG TAB PO SCH (05:41)
[2017-11-29 06:59] LABS: BASOPHILS # (AUTO) 0.1 (0.0-0.1); BASOPHILS % 0.8 % (0.0-1.0); EOSINOPHILS # (AUTO) 0.1 (0.0-0.4); EOSINOPHILS % 0.6 % (0.0-6.0); HEMATOCRIT 26.8 % (38.2-49.6); HEMOGLOBIN 8.5 g/dL (14.0-18.0); LYMPHOCYTES # (AUTO) 1.5 (1.0-3.2); LYMPHOCYTES % 12.6 % (18.0-39.1); MEAN CORPUSCULAR HEMOGLOBIN 29.8 pg (28-32); MEAN CORPUSCULAR HGB CONC 31.7 g/dL (31-35); MONOCYTES # (AUTO) 2.2 (0.2-0.8); NEUTROPHILS # (AUTO) 6.2 (2.1-6.9); PLATELET COUNT 164 x10e3/uL (140-360); RED BLOOD COUNT 2.85 x10e6/uL (4.3-5.7); RED CELL DISTRIBUTION WIDTH 18.9 % (11.7-14.4)
[2017-11-29 07:08] LABS: INR 1.45; PROTHROMBIN TIME 16.6 seconds (11.9-14.5)
[2017-11-29 07:21] LABS: ANION GAP 10.8 mmol/L (8-16); CALCIUM 8.9 mg/dL (8.4-10.2); CREATININE, SERUM 1.62 mg/dL (0.72-1.25); POTASSIUM 3.8 mmol/L (3.5-5.1)
[2017-11-29] MEDS: INSULIN REGULAR, HUMAN 100 UNIT/1 ML 3ML VIAL SQ SCH ×4 (07:30→21:00)
[2017-11-29 07:54] LABS: EOSINOPHILS % (MANUAL) 1 % (0-7); LYMPHOCYTES % (MANUAL) 21 % (19-48); METAMYELOCYTES % (MANUAL) 2 % (0-0); MONOCYTES % (MANUAL) 9 % (3.4-9.0); NEUTROPHILS % (MANUAL) 63 % (40-74)
[2017-11-29 07:55] LABS: PLATELET ESTIMATE ADEQUATE; PLATELET MORPHOLOGY COMMENT NORMAL; RBC MORPHOLOGY COMMENT NORMAL
[2017-11-29 07:56] LABS: ANISOCYTOSIS SLIGHT
[2017-11-29 08:00] VITALS: BP 133/76
[2017-11-29] MEDS: METOPROLOL TARTRATE 25 MG TAB PO SCH ×2 (09:00→21:00)
[2017-11-29] MEDS: INSULIN DETEMIR 100 UNIT/ML PEN SQ SCH ×2 (09:00→21:00)
[2017-11-29] MEDS ORDERED: IOPAMIDOL 610MG/1ML 300 MG/ML VIAL IV ONE (09:27)
--- NOTE | 2017-11-29 09:33 | Progress Note ---
DATE: November 29, 2017 Mr. Sanches is an 82-year-old man with a history of chronic atrial fibrillation, diabetes, hypertension, hypothyroidism, came to the emergency room with nosebleed and elevated INR. He is going for a suprapubic catheter today. Anticoagulation was put on hold. Will discuss after the procedure with Dr. Leos prior to consideration regarding anticoagulation. PHYSICAL EXAMINATION GENERAL: Today, he is awake and alert. VITALS: Temperature is 95.3, blood pressure 133/76. HEART: Irregularly irregular. LUNGS: Clear to auscultation. ABDOMEN: Distended and soft. BLOOD WORK: White count is 12.11, hemoglobin 8.5, hematocrit 26.8. Potassium 3.8, creatinine is 1.62, glucose was 66. INR 1.45. ASSESSMENT AND PLAN 1. Coagulopathy secondary to Coumadin. 2. Chronic atrial fibrillation. 3. Epistaxis, resolved. 4. Coronary artery disease. 5. Acute anemia secondary to bleeding. 6. Dnxxc-uf-ppeafol renal failure. 7. Uncontrolled diabetes, type 2. 8. Hypothyroidism. 9. Urinary retention. 10. Urinary tract infection with Escherichia coli. PLAN: At the present time, the patient is going to go for the suprapubic catheter. Continue IV antibiotics, ADA diet and sliding scale with insulin. After the procedure, will discuss with Dr. Leos further for consideration regarding anticoagulation. All of this was discussed with the patient and daughter at bedside. All questions were answered to satisfaction. I spent more than 30 minutes examining the patient, reviewing the x-rays, lab results, overnight events, and discussing plan of care with the patient and family. Job#: [id number] GRETTA
[2017-11-29] MEDS ORDERED: BUPIVACAINE 0.5%/EPI 30 ML SDV INJ ONE (09:44)
[2017-11-29] MEDS ORDERED: MUPIROCIN 2% OINT 22 GM TUBE ONE (09:45)
[2017-11-29] MEDS ORDERED: BELLADONNA/OPIUM 60 MG SUPP PR ONE (10:19)
[2017-11-29 11:50] VITALS: BP 114/56
[2017-11-29] MEDS: FUROSEMIDE 40 MG TAB PO SCH (12:32)
[2017-11-29] MEDS: FOLIC ACID 1 MG TAB PO SCH (12:32)
[2017-11-29] MEDS: CEFTRIAXONE SOD 1 GM VIAL IV SCH (12:32)
[2017-11-29] MEDS: PANTOPRAZOLE 40 MG 10ML VIAL IV SCH ×2 (12:32→18:13)
[2017-11-29] MEDS: MAGNESIUM OXIDE 400 MG TAB PO SCH ×2 (12:32→18:13)
[2017-11-29] MEDS: FERROUS SULFATE 325 MG TAB PO SCH (12:32)
[2017-11-29] MEDS: BUSPIRONE HCL 5 MG TAB PO SCH ×2 (12:32→18:13)
[2017-11-29] MEDS: ACETAMINOPHEN 325 MG TAB PO PRN ×2 (12:33→21:35)
[2017-11-29] MEDS: COLLAGENASE OINTMENT 30 GM TUBE TP SCH (12:33)
[2017-11-29] MEDS: CALCIUM CARBONATE 500 MG CHEWABLE TABS PO SCH ×2 (12:33→18:13)
[2017-11-29] MEDS: ALLOPURINOL 300 MG TAB PO SCH (12:33)
[2017-11-29] MEDS: BALSAM PERU/CASTOR OIL 60 GM OINT...G. TP SCH ×2 (12:33→17:45)
[2017-11-29] MEDS ORDERED: PHYTONADIONE 5 MG TAB PO ONE (14:30)
[2017-11-29] MEDS ORDERED: ONDANSETRON HCL INJ 2 MG/ML VIAL ONE (14:59)
[2017-11-29] MEDS ORDERED: EYE LUBRICANT OPTH OINT 3.5GM TUBE OP ONE (14:59)
[2017-11-29] MEDS ORDERED: PHENYLEPHRINE HCL 1% 10 MG/ML VIAL ONE (14:59)
[2017-11-29] MEDS ORDERED: LIDOCAINE HCL 2% LOCAL INJ 5 ML SDV VIAL INJ ONE (14:59)
[2017-11-29] MEDS ORDERED: SEVOFLURANE INHAL SOLN 250 ML PEN BTL ONE (14:59)
[2017-11-29] MEDS ORDERED: ETOMIDATE 2 MG/ML 10 ML INJ IV ONE (14:59)
[2017-11-29] MEDS ORDERED: CEFTRIAXONE SOD 1 GM VIAL ONE (14:59)
[2017-11-29] MEDS ORDERED: METOPROLOL TARTRATE 25 MG TAB PO SCH (15:00)
[2017-11-29] MEDS ORDERED: PHYTONADIONE 10 MG/ML AMP PO ONE (15:00)
[2017-11-29] MEDS: BACITRACIN ZINC 0.9GM TP SCH (17:45)
[2017-11-29] MEDS ORDERED: FENTANYL CITRATE/PF 100MCG/2 ML INJ ONE (18:20)
[2017-11-29 20:00] VITALS: BP 188/98
[2017-11-29] MEDS: MELATONIN 5 MG TABLET PO SCH (21:00)
[2017-11-29] MEDS: TRAMADOL HCL 50 MG TAB PO PRN (21:00)
[2017-11-30] VITALS: BP 97/45
[2017-11-30 04:00] VITALS: BP 98/51
[2017-11-30] MEDS: SALINE 0.65% NAS SOLN 1 SPRAY BTL SCH ×5 (06:00→20:27)
[2017-11-30] MEDS: LEVOTHYROXINE SODIUM 100 MCG TAB PO SCH (06:00)
[2017-11-30 07:51] LABS: ANION GAP 11.1 mmol/L (8-16); CALCIUM 8.6 mg/dL (8.4-10.2); CREATININE, SERUM 1.96 mg/dL (0.72-1.25); POTASSIUM 4.1 mmol/L (3.5-5.1)
[2017-11-30 08:24] VITALS: BP 97/59
[2017-11-30] MEDS: CALCIUM CARBONATE 500 MG CHEWABLE TABS PO SCH ×2 (09:00→16:58)
[2017-11-30] MEDS: ALLOPURINOL 300 MG TAB PO SCH (09:00)
[2017-11-30] MEDS: BUSPIRONE HCL 5 MG TAB PO SCH ×2 (09:00→16:57)
[2017-11-30] MEDS: INSULIN DETEMIR 100 UNIT/ML PEN SQ SCH ×3 (09:00→21:05)
[2017-11-30] MEDS: FOLIC ACID 1 MG TAB PO SCH (09:00)
[2017-11-30] MEDS: PANTOPRAZOLE 40 MG 10ML VIAL IV SCH ×2 (09:00→16:57)
[2017-11-30] MEDS: CEFTRIAXONE SOD 1 GM VIAL IV SCH (09:00)
[2017-11-30] MEDS: FERROUS SULFATE 325 MG TAB PO SCH (09:00)
[2017-11-30] MEDS: MAGNESIUM OXIDE 400 MG TAB PO SCH ×2 (09:00→16:58)
[2017-11-30] MEDS: INSULIN REGULAR, HUMAN 100 UNIT/1 ML 3ML VIAL SQ SCH ×4 (10:22→20:27)
[2017-11-30] MEDS: COLLAGENASE OINTMENT 30 GM TUBE TP SCH (10:24)
[2017-11-30] MEDS: BALSAM PERU/CASTOR OIL 60 GM OINT...G. TP SCH ×2 (10:24→16:58)
[2017-11-30] MEDS: BACITRACIN ZINC 0.9GM TP SCH ×2 (10:24→16:58)
[2017-11-30 11:50] LABS: INR 1.39
[2017-11-30 12:11] VITALS: BP 107/60
[2017-11-30 16:00] VITALS: BP 112/60
[2017-11-30] MEDS: METOPROLOL TARTRATE 25 MG TAB PO SCH (16:58)
[2017-11-30] MEDS: ACETAMINOPHEN 325 MG TAB PO PRN (16:59)
[2017-11-30] MEDS: MELATONIN 5 MG TABLET PO SCH (20:26)
[2017-11-30 20:47] VITALS: BP 117/60
[2017-12-01] VITALS (7 sets, daily range): BP systolic 92–130; BP diastolic 51–68
[2017-12-01] MEDS: SALINE 0.65% NAS SOLN 1 SPRAY BTL SCH ×5 (05:31→22:00)
[2017-12-01] MEDS: LEVOTHYROXINE SODIUM 100 MCG TAB PO SCH (05:31)
[2017-12-01] MEDS: INSULIN REGULAR, HUMAN 100 UNIT/1 ML 3ML VIAL SQ SCH ×4 (07:30→21:10)
[2017-12-01] MEDS: INSULIN DETEMIR 100 UNIT/ML PEN SQ SCH (09:00)
[2017-12-01] MEDS: ACETAMINOPHEN 325 MG TAB PO PRN (09:20)
[2017-12-01] MEDS: FOLIC ACID 1 MG TAB PO SCH (09:48)
[2017-12-01] MEDS: COLLAGENASE OINTMENT 30 GM TUBE TP SCH (09:48)
[2017-12-01] MEDS: METOPROLOL TARTRATE 25 MG TAB PO SCH ×2 (09:48→17:44)
[2017-12-01] MEDS: BUSPIRONE HCL 5 MG TAB PO SCH ×2 (09:48→17:43)
[2017-12-01] MEDS: MAGNESIUM OXIDE 400 MG TAB PO SCH ×2 (09:48→17:44)
[2017-12-01] MEDS: BALSAM PERU/CASTOR OIL 60 GM OINT...G. TP SCH ×2 (09:48→17:44)
[2017-12-01] MEDS: FERROUS SULFATE 325 MG TAB PO SCH (09:48)
[2017-12-01] MEDS: CALCIUM CARBONATE 500 MG CHEWABLE TABS PO SCH ×2 (09:48→17:44)
[2017-12-01] MEDS: ALLOPURINOL 300 MG TAB PO SCH (09:48)
[2017-12-01] MEDS: BACITRACIN ZINC 0.9GM TP SCH ×2 (09:48→17:44)
[2017-12-01] MEDS: PANTOPRAZOLE 40 MG 10ML VIAL IV SCH ×2 (09:48→17:43)
[2017-12-01 10:33] LABS: BASOPHILS % 0.3 % (0.0-1.0); EOSINOPHILS # (AUTO) 0.1 (0.0-0.4); EOSINOPHILS % 0.9 % (0.0-6.0); HEMATOCRIT 25.6 % (38.2-49.6); LYMPHOCYTES # (AUTO) 1.2 (1.0-3.2); LYMPHOCYTES % 12.8 % (18.0-39.1); MEAN CORPUSCULAR HEMOGLOBIN 29.4 pg (28-32); MEAN CORPUSCULAR HGB CONC 31.3 g/dL (31-35); MEAN CORPUSCULAR VOLUME 94.1 fL (81-99); MONOCYTES # (AUTO) 2.1 (0.2-0.8); MONOCYTES % 21.2 % (4.4-11.3); NEUTROPHILS # (AUTO) 5.1 (2.1-6.9); NEUTROPHILS % 52.6 % (38.7-80.0); PLATELET COUNT 169 x10e3/uL (140-360); RED BLOOD COUNT 2.72 x10e6/uL (4.3-5.7); RED CELL DISTRIBUTION WIDTH 19.4 % (11.7-14.4)
[2017-12-01 10:40] LABS: ALBUMIN 2.4 g/dL (3.5-5.0); ALBUMIN/GLOBULIN RATIO 0.8 (0.8-2.0); ANION GAP 14.1 mmol/L (8-16); CALCIUM 8.7 mg/dL (8.4-10.2); CREATININE, SERUM 1.82 mg/dL (0.72-1.25); POTASSIUM 4.1 mmol/L (3.5-5.1)
[2017-12-01 11:18] LABS: INR 1.42; PROTHROMBIN TIME 16.3 seconds (11.9-14.5)
[2017-12-01 13:54] LABS: BAND NEUTROPHILS % (MANUAL) 2 %; LYMPHOCYTES % (MANUAL) 15 % (19-48); MONOCYTES % (MANUAL) 18 % (3.4-9.0)
[2017-12-01 13:55] LABS: NEUTROPHILS % (MANUAL) 65 % (40-74); RBC MORPHOLOGY COMMENT NORMAL
[2017-12-01] MEDS: MELATONIN 5 MG TABLET PO SCH (20:40)
[2017-12-02] VITALS (7 sets, daily range): BP systolic 102–141; BP diastolic 54–65
[2017-12-02] MEDS: SALINE 0.65% NAS SOLN 1 SPRAY BTL SCH ×5 (06:00→21:11)
[2017-12-02] MEDS: LEVOTHYROXINE SODIUM 100 MCG TAB PO SCH (06:31)
[2017-12-02 07:18] LABS: BASOPHILS # (AUTO) 0.1 (0.0-0.1); BASOPHILS % 0.5 % (0.0-1.0); EOSINOPHILS # (AUTO) 0.1 (0.0-0.4); EOSINOPHILS % 1.2 % (0.0-6.0); HEMATOCRIT 25.3 % (38.2-49.6); LYMPHOCYTES # (AUTO) 1.5 (1.0-3.2); MEAN CORPUSCULAR HEMOGLOBIN 29.9 pg (28-32); MEAN CORPUSCULAR HGB CONC 31.6 g/dL (31-35); MEAN CORPUSCULAR VOLUME 94.4 fL (81-99); MONOCYTES # (AUTO) 2.1 (0.2-0.8); MONOCYTES % 21.9 % (4.4-11.3); NEUTROPHILS # (AUTO) 4.3 (2.1-6.9); NEUTROPHILS % 44.5 % (38.7-80.0); PLATELET COUNT 151 x10e3/uL (140-360); RED BLOOD COUNT 2.68 x10e6/uL (4.3-5.7); RED CELL DISTRIBUTION WIDTH 19.5 % (11.7-14.4)
[2017-12-02 07:26] LABS: INR 1.32; PROTHROMBIN TIME 15.4 seconds (11.9-14.5)
[2017-12-02] MEDS: INSULIN REGULAR, HUMAN 100 UNIT/1 ML 3ML VIAL SQ SCH ×4 (07:30→20:34)
[2017-12-02 07:39] LABS: CALCIUM 8.8 mg/dL (8.4-10.2); CREATININE, SERUM 1.91 mg/dL (0.72-1.25)
[2017-12-02 08:33] LABS: BAND NEUTROPHILS % (MANUAL) 1 %; EOSINOPHILS % (MANUAL) 1 % (0-7); LYMPHOCYTES % (MANUAL) 20 % (19-48); METAMYELOCYTES % (MANUAL) 2 % (0-0); MONOCYTES % (MANUAL) 14 % (3.4-9.0); MYELOCYTES % (MANUAL) 7 % (0-0); NEUTROPHILS % (MANUAL) 55 % (40-74); PLATELET ESTIMATE ADEQUATE; PLATELET MORPHOLOGY COMMENT FEW LARGE; RBC MORPHOLOGY COMMENT NORMAL
[2017-12-02] MEDS: FOLIC ACID 1 MG TAB PO SCH (08:34)
[2017-12-02] MEDS: PANTOPRAZOLE 40 MG 10ML VIAL IV SCH (08:34)
[2017-12-02] MEDS: BUSPIRONE HCL 5 MG TAB PO SCH ×2 (08:34→18:09)
[2017-12-02] MEDS: FERROUS SULFATE 325 MG TAB PO SCH (08:34)
[2017-12-02] MEDS: BACITRACIN ZINC 0.9GM TP SCH ×2 (08:34→18:09)
[2017-12-02] MEDS: METOPROLOL TARTRATE 25 MG TAB PO SCH ×2 (08:35→18:09)
[2017-12-02] MEDS: ALLOPURINOL 300 MG TAB PO SCH (08:35)
[2017-12-02] MEDS: MAGNESIUM OXIDE 400 MG TAB PO SCH ×2 (08:35→18:09)
[2017-12-02] MEDS: CALCIUM CARBONATE 500 MG CHEWABLE TABS PO SCH ×2 (08:35→18:09)
[2017-12-02] MEDS: INSULIN DETEMIR 100 UNIT/ML PEN SQ SCH ×2 (08:36→20:35)
[2017-12-02] MEDS: BALSAM PERU/CASTOR OIL 60 GM OINT...G. TP SCH ×2 (10:58→18:09)
[2017-12-02] MEDS: COLLAGENASE OINTMENT 30 GM TUBE TP SCH (10:58)
[2017-12-02] MEDS ORDERED: WARFARIN SOD 1 MG TAB PO SCH (17:00)
[2017-12-02] MEDS: PANTOPRAZOLE SOD 40 MG TABEC PO SCH (18:09)
--- NOTE | 2017-12-02 18:47 | Progress Note ---
DATE: December 02, 2017 INTERNAL MEDICINE PROGRESS NOTE HISTORY OF PRESENT ILLNESS: Patient is an 82-year-old male who came here with coagulopathy and epistaxis. The epistaxis has been resolved. He had a suprapubic tube placed by Dr. Donaldson because of urinary retention. The patient was also found to have a UTI and started on IV antibiotics. He is doing well today. PHYSICAL EXAMINATION: VITAL SIGNS: Blood pressure 126/60. Temperature 96.0, heart rate 86 per minute, respiratory rate 18 per minute. Oxygen saturation 95%. HEART: Shows irregularly irregular heart rate, no murmurs and no extra sounds. LUNGS: Clear bilaterally. ABDOMEN: Soft. There is a suprapubic tube and a colostomy. EXTREMITIES: Show some superficial wounds on both lower extremities. LABORATORY DATA: Blood work showed BMP with a sodium 137, potassium 4.0, chloride 96, CO2 31, BUN 42, creatinine 1.91, glucose 160. On the CBC, white blood count 9.61, hemoglobin 8.0, hematocrit 25.3, platelet count 151,000. PT 15.4. INR 1.32. PTT 97.9. AST 11, ALT 7, total bilirubin 0.4, alkaline phosphatase 209. FINAL IMPRESSION: 1. Urinary tract infection and prostatitis. 2. Chronic atrial fibrillation. 3. Epistaxis which has resolved. 4. Uncontrolled diabetes mellitus type 2 with chronic renal failure. 5. Acute on chronic renal failure stage 3. 6. Chronic anemia secondary to chronic renal insufficiency. 7. Hypothyroidism. 8. Urinary retention status post suprapubic tube catheter placement. 9. Coronary artery disease. 10. Obesity. 11. Superficial wounds on both legs. PLAN OF TREATMENT: Continue allopurinol 300 mg daily, BuSpar 7.5 mg twice a day as needed. Levothyroxine 100 mcg daily. 1 application twice a day over the open sores. Continue monitoring blood sugar a.c. and nightly. Continue Bacitracin zinc ointment twice a day to affected area. Continue calcium carbonate 500 mg twice a day. Magnesium oxide 400 mg twice a day. Collagenase 1 gram daily. Continue Levemir 16 units subcutaneously once a day. Tramadol 50 mg q.6 h.as needed for pain. Ferrous sulfate 325 mg daily. Melatonin 5 mg at bedtime. Tylenol 650 mg q.4 h. as needed. He is also taking Levemir 18 units at bedtime subcutaneously. We are going to discontinue the Coumadin and start him on Eliquis 2.5 mg twice a day due to the family concern about the Coumadin since he had an episode of bleeding through the nose and also the INR was very high for several weeks after even stopping the Coumadin. So family willing to start Eliquis. I discussed about that particular medication with the family. They all agreed. They know about the way it works and the side effects. Continue also folic acid 1 mg daily, metoprolol 25 mg twice a day, Protonix 40 mg twice a day. I discussed the case with the with family for at least 45 minutes at the bedside. The patient and the family agreed with the plan. Job#: [id number]
[2017-12-02] MEDS: MELATONIN 5 MG TABLET PO SCH (21:00)
[2017-12-02] MEDS: TRAMADOL HCL 50 MG TAB PO PRN (21:10)
[2017-12-03] VITALS (7 sets, daily range): BP systolic 110–133; BP diastolic 60–78
[2017-12-03] MEDS: LEVOTHYROXINE SODIUM 100 MCG TAB PO SCH (05:51)
[2017-12-03] MEDS: SALINE 0.65% NAS SOLN 1 SPRAY BTL SCH ×5 (05:51→21:04)
[2017-12-03 07:28] LABS: INR 1.33; PROTHROMBIN TIME 15.5 seconds (11.9-14.5)
[2017-12-03] MEDS: INSULIN REGULAR, HUMAN 100 UNIT/1 ML 3ML VIAL SQ SCH ×4 (07:30→20:50)
[2017-12-03] MEDS: APIXAB 2.5 MG TABLET PO SCH ×2 (08:51→17:12)
[2017-12-03] MEDS: FERROUS SULFATE 325 MG TAB PO SCH (08:51)
[2017-12-03] MEDS: COLLAGENASE OINTMENT 30 GM TUBE TP SCH (08:51)
[2017-12-03] MEDS: PANTOPRAZOLE SOD 40 MG TABEC PO SCH ×2 (08:51→17:12)
[2017-12-03] MEDS: CALCIUM CARBONATE 500 MG CHEWABLE TABS PO SCH ×2 (08:51→17:12)
[2017-12-03] MEDS: BUSPIRONE HCL 5 MG TAB PO SCH ×2 (08:51→17:12)
[2017-12-03] MEDS: BACITRACIN ZINC 0.9GM TP SCH ×2 (08:51→17:02)
[2017-12-03] MEDS: FOLIC ACID 1 MG TAB PO SCH (08:51)
[2017-12-03] MEDS: MAGNESIUM OXIDE 400 MG TAB PO SCH ×2 (08:51→17:12)
[2017-12-03] MEDS: BALSAM PERU/CASTOR OIL 60 GM OINT...G. TP SCH ×2 (08:52→17:02)
[2017-12-03] MEDS: METOPROLOL TARTRATE 25 MG TAB PO SCH ×2 (08:52→17:12)
[2017-12-03] MEDS: ALLOPURINOL 300 MG TAB PO SCH (08:52)
[2017-12-03] MEDS: INSULIN DETEMIR 100 UNIT/ML PEN SQ SCH ×2 (09:03→20:50)
--- NOTE | 2017-12-03 20:02 | Progress Note ---
DATE: December 03, 2017 INTERNAL MEDICINE PROGRESS NOTE SUBJECTIVE: Patient is doing well. He is participating in physical therapy, but he is still not making a log of progress. The patient's family wants him to go home. He wants to go home with home health. I told the family I would think that inpatient rehab or even a fpc facility would be much safer than discharging the patient. The patient and family want to go home. PHYSICAL EXAM: VITAL SIGNS: Blood pressure 110/67, temperature ___, heart rate 88 per minute. Respiratory rate 15 per minute. Oxygen saturation 96%. HEART: Shows irregularly irregular heart rate. No murmurs. No extra sounds. LUNGS: Cleat bilaterally. ABDOMEN: Soft. EXTREMITIES: Showed some superficial abrasions, both lower extremities. On the BMP sodium 137, potassium 4.0, chloride 96, CO2 31, BUN 42, creatinine 1.91. Glucose 160. On the CBC, white blood count 9.61, hemoglobin 8.0, hematocrit 25.3, platelet count 151,000. PT 15.5. PTT 97.9, INR 1.83. AST 11, ALT 7, total bilirubin 0.4, alkaline phosphatase 29. FINAL IMPRESSION: 1. Epistaxis which is resolved. 2. Chronic atrial fibrillation. 3. Urinary tract infection with prostatitis. 4. Uncontrolled diabetes mellitus type 2 with chronic renal failure. 5. Acute on chronic renal failure stage 3. 6. Chronic anemia secondary to chronic renal insufficiency . 7. Hypothyroidism. 8. Urinary retention, status post suprapubic tube placement. 9. Coumadin toxicity, which is resolved. 10. Coronary artery disease. 11. Obesity. 12. Superficial wounds in both legs. PLAN OF TREATMENT: Continue Eliquis 2.5 mg twice a day. Continue allopurinol 300 mg daily, BuSpar 7.5 mg twice a day as needed for anxiety. Levothyroxine 100 mcg daily. Continue monitoring blood sugar a.c. and nightly. Continue Bacitracin ointment twice a day to wound area. Calcium carbonate 500 mg twice a day. Magnesium oxide 400 mg twice a day. Collagenase ointment 1 application daily. Continue Levemir 16 units subcutaneously once a day. Tramadol 50 mg q.6 h. as needed for pain. Ferrous sulfate 325 mg daily. Melatonin 5 mg at bedtime. Tylenol 350 mg q.4 h. as needed for pain or fever. He is also taking Levemir 18 units at bedtime subcutaneously and Eliquis 2.5 mg twice a day. Continue physical and occupational therapy. Continue folic acid 1 mg daily. Metoprolol 25 mg twice a day. Protonix 40 mg twice a day. As the family is refusing inpatient rehab or fpc facility for the patient that he still having a lot of difficulty walking, so they want to go home with home health. Tentative discharge for tomorrow. Job#: [id number]
[2017-12-03] MEDS: MELATONIN 5 MG TABLET PO SCH (21:00)
[2017-12-04] VITALS: BP 139/58
[2017-12-04 04:00] VITALS: BP 132/65
[2017-12-04] MEDS: LEVOTHYROXINE SODIUM 100 MCG TAB PO SCH (05:27)
[2017-12-04] MEDS: SALINE 0.65% NAS SOLN 1 SPRAY BTL SCH ×3 (05:27→16:39)
[2017-12-04 07:06] LABS: INR 1.46; PROTHROMBIN TIME 16.7 seconds (11.9-14.5)
[2017-12-04 08:00] VITALS: BP 127/64
[2017-12-04] MEDS: PANTOPRAZOLE SOD 40 MG TABEC PO SCH (09:00)
[2017-12-04] MEDS: MAGNESIUM OXIDE 400 MG TAB PO SCH (09:00)
[2017-12-04] MEDS: METOPROLOL TARTRATE 25 MG TAB PO SCH (09:00)
[2017-12-04] MEDS: BALSAM PERU/CASTOR OIL 60 GM OINT...G. TP SCH ×2 (09:00→16:38)
[2017-12-04] MEDS: BUSPIRONE HCL 5 MG TAB PO SCH (09:00)
[2017-12-04] MEDS: APIXAB 2.5 MG TABLET PO SCH (09:00)
[2017-12-04] MEDS: BACITRACIN ZINC 0.9GM TP SCH ×2 (09:00→16:37)
[2017-12-04] MEDS: FOLIC ACID 1 MG TAB PO SCH (09:57)
[2017-12-04] MEDS: ALLOPURINOL 300 MG TAB PO SCH (09:57)
[2017-12-04] MEDS: CALCIUM CARBONATE 500 MG CHEWABLE TABS PO SCH (09:57)
[2017-12-04] MEDS: FERROUS SULFATE 325 MG TAB PO SCH (09:57)
[2017-12-04] MEDS: INSULIN DETEMIR 100 UNIT/ML PEN SQ SCH (09:58)
[2017-12-04] MEDS: INSULIN REGULAR, HUMAN 100 UNIT/1 ML 3ML VIAL SQ SCH ×3 (10:00→16:30)
[2017-12-04 11:44] VITALS: BP 127/64
[2017-12-04 12:00] VITALS: BP 122/57
[2017-12-04] MEDS: COLLAGENASE OINTMENT 30 GM TUBE TP SCH (14:00)
[2017-12-04 16:00] VITALS: BP 145/76
[2017-12-04] MEDS ORDERED: LEVEMIR100 UNIT/1 SQ (18:29)
[2017-12-04] MEDS ORDERED: eliquis PO (18:30)
[2017-12-04] MEDS ORDERED: INSULIN DETEMIR 100 UNIT/ML PEN SQ SCH (21:00)
--- NOTE | 2017-12-05 03:07 | Consultation ---
DATE OF CONSULTATION: November 25, 2017 PLEASE VERIFY PATIENT IDENTITY. ADT MATCH NOT AVAILABLE. Mr. Sanches is an 82-year-old white male who is very well known to me for many years. The patient had presented with INR of 19, epistaxis after cauterization. The patient was given fresh frozen plasma and vitamin K by who was operations examiner for me. Subsequently, today, the INR is 5.1. Subsequently referred to me for further evaluation and treatment. HISTORY OF PAST ILLNESSES: History of hypothyroidism, history of hypertension, history of postural hypotension, history of multiple falls, history of osteomyelitis of the leg, history of chronic venous congestion of both legs, history of deconditioning, and history of gout. SOCIAL HISTORY: Noncontributory. FAMILY HISTORY: Noncontributory. ALLERGIES: CODEINE. MEDICATIONS: At this time 1. Ondansetron. 2. Sodium chloride. 3. Allopurinol. 4. BuSpar. 5. Calcium carbonate. 6. Ferrous sulfate. 7. Folic acid. 8. Metoprolol. 9. Protonix. 10. Lasix. 11. Collagenase ointment. REVIEW OF SYSTEMS HEENT: Normal. CARDIAC: Hypertension, atrial fibrillation, cardiomyopathy. RESPIRATORY: History of congestive heart failure. MUSCULOSKELETAL: Normal. SKIN AND BREASTS: Normal. NEUROENDOCRINE: History of hypothyroidism. PHYSICAL EXAMINATION GENERAL: Morbidly obese male. No palpable adenopathy. HEART: Within normal limits. LUNGS: Clear. ABDOMEN: Obese. There is no hepatosplenomegaly. RECTAL: Deferred. CENTRAL NERVOUS SYSTEM: Essentially normal. EXTREMITIES: Pitting edema 2+ of the feet, has chronic venous congestion. LABS: Hemoglobin of 8.5, hematocrit 26.8, white count of 9800, and platelets 167,000. Sodium 139, potassium 3.9, chloride 96, CO2 of 32, BUN of 42, and creatinine 1.6. INR 5.1, bilirubin 0.9, SGOT 11, SGPT 12, and alkaline phosphatase 197. IMPRESSIONS 1. Acquired coagulopathy. 2. History of atrial fibrillation. 3. History of congestive heart failure. 4. History of cardiomyopathy. 5. Anemia of blood loss and chronic disease. 6. Chronic renal failure. 7. Hypothyroidism. PLAN: To confine myself to hematology. The patient will be given fresh frozen plasma and vitamin K. The patient is highly sensitive to Coumadin. When restarting, restart on 2 mg only. Job#: [id number] CF cc:SERA MNOCADA MD
--- NOTE | 2017-12-05 05:37 | Discharge Summary ---
HISTORY OF PRESENT ILLNESS: He is an 82-year-old male, who had a past medical history positive for chronic atrial fibrillation, diabetes, chronic renal insufficiency, bedridden. He has had amputation of right big toe. Following that, he was maintained on antibiotic. He was at [facility]. He had chronic insufficiency, chronic swelling of both lower extremities of many years' duration. He came with a nosebleed. His INR was extremely high at 10 given the INR. Finally after several weeks of holding the Coumadin, finally starts coming down. Once the INR was in the normal range, we started on Eliquis 2.5 mg twice a day as per discussion with the family, they don not want the Coumadin anymore. Patient had a suprapubic tube due to urinary retention, placed by Dr. Donaldson, urology. Dr. Jackson saw him from the hematology point of view. He is getting physical/occupational therapy supervised by Dr. Trae Estrada. Dr. Leos saw the patient from the cardiology point of view. Dr. Mansoor Zee was consulted from a surgical point of view because of a small hematoma on the forearm. The family refusing to go to any inpatient rehab facility or any [id number] hospital or any retirement facility. They want to go home. So patient going home with home health for PT/OT and retirement. PHYSICAL EXAM HEART: Regular irregular heart rate. Normal S1, S2 sounds. LUNGS: Clear bilaterally. ABDOMEN: Soft. EXTREMITIES: Showed bruising and superficial wounds on both the legs. VITALS: Blood pressure 122/57, temperature 96.5, heart rate 93 per minute, respiratory rate is 22 per minute, oxygen saturation 98%. On the BMP, sodium 137, potassium 4.0, chloride 96, CO2 31, BUN 42, creatinine 1.91, glucose 160. On the CBC, white blood count 9.61, hemoglobin 8.0, hematocrit 25.3, platelet count 151,000. PT 16.7, INR 1.46, PTT 97.9, AST 11, ALT 7, total bilirubin 0.4, alkaline phosphatase 209. FINAL IMPRESSIONS 1. Coumadin toxicity. 2. Episode of epistaxis, which has been resolved after cauterization. 3. Chronic atrial fibrillation. 4. Urinary tract infection. 5. Uncontrolled diabetes mellitus, type 2, with chronic renal failure. 6. Brnhs-zi-ftosjlt renal failure, stage 3. 7. Chronic anemia secondary to chronic renal insufficiency. 8. Acquired hypothyroidism. 9. Urinary retention, status post suprapubic tube placement. 10. Physical deconditioning. 11. Gout. 12. Superficial wound on both legs. 13. Coronary artery disease. PLAN OF TREATMENT 1. He is going to be discharged on allopurinol 300 mg daily. 2. Levothyroxine 100 mcg daily. 3. Continue monitoring blood sugar a.c. and nightly. 4. Calcium carbonate 500 mg twice a day. 5. Magnesium oxide 400 mg twice a day. 6. Levemir 18 units in the morning and 20 units in the evening subcutaneously. 7. Tramadol 50 mg q.6 h as needed for pain. 8. Ferrous sulfate 325 mg daily. 9. Melatonin 5 mg at bedtime. 10. Protonix 40 mg twice a day. 11. Folic acid 1 mg daily. 12. Metoprolol 12.5 mg twice a day. 13. Eliquis 2.5 mg twice a day. 14. He is going to follow up with me in a week and Dr. Donaldson in a couple of weeks. Job#: [id number] CALISTA
[2017-12-05] MEDS ORDERED: INSULIN DETEMIR 100 UNIT/ML PEN SQ SCH (09:00)
--- NOTE | 2017-12-07 13:45 | Operative Report ---
DATE OF PROCEDURE: November 29, 2017 PREOPERATIVE DIAGNOSES 1. Urinary retention. 2. Urinary tract infections. 3. Microscopic hematuria. POSTOPERATIVE DIAGNOSES 1. Urinary retention. 2. Urinary tract infections. 3. Microscopic hematuria. OPERATIONS PERFORMED 1. Cystourethroscopy with bilateral ureteral catheterization and retrograde ureterography (separately performed for the urinary tract infections and microhematuria). 2. Interpretation of retrograde pyelography. 3. Cystotomy and cystostomy (separately performed for the urinary retention). ANESTHESIA: General. COMPLICATIONS: None. CLINICAL SUMMARY: Please refer to consultation dictation from this hospitalization in the hospital chart. OPERATIVE PROCEDURE IN DETAIL: Informed consent was verified. Patrick Sanches was properly identified, taken to the operating room, placed on the cystoscopy table in supine position. Anesthesia was uneventfully begun. The patient was then carefully and gently re-positioned in the dorsal lithotomy position with all pressure points well padded. His abdomen and genitalia were prepared and draped in the usual sterile fashion. A 22.5-Congolese cystoscope sheath with a visual obturator in place was atraumatically inserted in patient's urethra. We started on the normal distal urethra to the bulbar region where there was wide caliber, not clinically significant with bulbar urethral strictures. We entered the patient's prostate bed was significant for being status post transurethral resection of the prostate with blanching of the mucosa and some scarring noted. Panendoscopy of the urinary bladder revealed scarring and blanching, but no suspicious mucosal lesions, no tumors, no stones, and no diverticula. Trabeculations were noted. An 8-Congolese catheter was used to cannulate each ureter and retrograde ureteropyelography was performed. Interpretation of retrograde ureteropyelography: Contrast was instilled in retrograde fashion bilaterally. There were no tumors, no stones, and no diverticula. Unobstructed drainage was observed bilaterally fluoroscopically. There was medial displacement of the left ureter as it coursed over the pelvic brim. There was also some obvious atrophy and decrease in size of the right kidney. The patient's bladder was then filled to capacity. A spinal needle was then utilized in suprapubic area to localize to the anterior bladder wall. We then withdrew this needle as we infiltrated the tract with Marcaine with epinephrine. A stab wound was made and a second localizer needle placed while cystoscopically observing from within the bladder. Guidewire was then placed. A small dilator was then placed and this allowed us to introduce a stiff guidewire. Over the stiff guidewire, we then placed the 20-Congolese peel-away sheath with its obturator. This was negotiated into the bladder wall observing cystoscopically. We then removed the internal obturator and placed an 18-Congolese Perez catheter through the peel-away sheath. Once the balloon was in the bladder, it was inflated to 20 mL with sterile water and then, the peel-away sheath was removed and thus leaving the suprapubic tube as the only access through this tract. The balloon was brought up against the anterior bladder wall. The bladder was drained. The tube was secured to the skin with 2 separate 2-0 nylon sutures. We evaluated from within the bladder and there was no evidence of any bleeding from the suprapubic cystostomy site. The cystoscope was withdrawn. Bacitracin and sterile dressing was applied to the suprapubic cystostomy site. 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 There were no complications during the procedure. Patient tolerated the procedure well. Plans will be to change the suprapubic cystostomy in the second half of December. Job#: [id number] [facility] cc:Dr. Bayron Davis
== END 2017-12-04 19:11 | disposition home or self-care (01) | DRG 813 ==
LOC: ER 07:57 → ERHOLD 12:08 → IMCU 16:32 → MED/SURG3 11-20 20:27
PROVIDERS: ADMIT Internal Medicine; ATTEND Internal Medicine
PROC: 3E09XTZ Introduction of Destructive Agent into Nose, External Approach (ICD-10-PCS; principal; 2017-11-18)
PROC: 30233K1 Transfusion of Nonautologous Frozen Plasma into Peripheral Vein, Percutaneous Approach (ICD-10-PCS; 2017-11-18)
PROC: 30233N1 Transfusion of Nonautologous Red Blood Cells into Peripheral Vein, Percutaneous Approach (ICD-10-PCS; 2017-11-18)
PROC: 0T9B40Z Drainage of Bladder with Drainage Device, Percutaneous Endoscopic Approach (ICD-10-PCS; 2017-11-29)
PROC: BT1F1ZZ Fluoroscopy of Left Kidney, Ureter and Bladder using Low Osmolar Contrast (ICD-10-PCS; 2017-11-29)
PROC: BT1D1ZZ Fluoroscopy of Right Kidney, Ureter and Bladder using Low Osmolar Contrast (ICD-10-PCS; 2017-11-29)
DX: D68.32 Hemorrhagic disorder due to extrinsic circulating anticoagulants (principal); E11.22 Type 2 diabetes mellitus with diabetic chronic kidney disease; E11.51 Type 2 diabetes mellitus with diabetic peripheral angiopathy without gangrene; E11.65 Type 2 diabetes mellitus with hyperglycemia; I95.9 Hypotension, unspecified; D62 Acute posthemorrhagic anemia; N39.0 Urinary tract infection, site not specified; R04.0 Epistaxis; I48.2 Chronic atrial fibrillation; T45.515A Adverse effect of anticoagulants, initial encounter; Z79.01 Long term (current) use of anticoagulants; I12.9 Hypertensive chronic kidney disease with stage 1 through stage 4 chronic kidney disease, or unspecified chronic kidney disease; N18.3 Chronic kidney disease, stage 3 (moderate); Z74.01 Bed confinement status; Z89.411 Acquired absence of right great toe; I87.2 Venous insufficiency (chronic) (peripheral); Z79.4 Long term (current) use of insulin; Z93.3 Colostomy status; Q54.9 Hypospadias, unspecified; B96.89 Other specified bacterial agents as the cause of diseases classified elsewhere; S80.11XA Contusion of right lower leg, initial encounter; S40.021A Contusion of right upper arm, initial encounter; E03.9 Hypothyroidism, unspecified; B96.20 Unspecified Escherichia coli [E. coli] as the cause of diseases classified elsewhere; I25.10 Atherosclerotic heart disease of native coronary artery without angina pectoris; R33.9 Retention of urine, unspecified; N41.9 Inflammatory disease of prostate, unspecified; E66.01 Morbid (severe) obesity due to excess calories; Z68.35 Body mass index [BMI] 35.0-35.9, adult; E56.1 Deficiency of vitamin K; S40.022A Contusion of left upper arm, initial encounter
CPT/HCPCS: 36415; 36430; 71045; 74176; 74420; 80048; 80053; 81001; 82948; 84443; 85025; 85610; 85730; 86850; 86900; 86920; 87070; 87086; 87186; 87205; 93005; 93306; 96372; 97139; 99285; J0696; J1940; J1956; J2001; J2370; J2405; J3430; J7050; P9016; P9017

== ENCOUNTER 2017-12-30 17:08 | Emergency (ER) | payer MEDICARE ==
[~2017-12-30] VITALS: Ht 177.8 cm; Wt 111.6 kg
[~2017-12-30 17:08] MED LIST changes: +BUSPIRONE HCL5 MG PO; +CALCIUM 500+D1 EACH PO; +FERROUS SULFAT325 M1 PO; +FLUCONAZOLE100 MG PO; +FOLIC ACID1 MG PO; +LEVEMIR100 UNIT/1 SQ; +MAGNESIUM OXID400 MG PO; +MELATONIN3 MG PO; +OMEPRAZOLE40 MG PO; +VERAPAMIL ER120 MG PO; +eliquis PO
--- OUTSIDE RECORDS SUMMARY | 2017-12-30 17:11 | XMS REPORT | Continuity of Care Document ---
Author Author [facility] Organization [facility] Address [address] [place] [address] Phone Unavailable Care Team Providers Care Superintendent Transmission Name Role Phone SERA MONCADA MD PCP Insurance Providers Guarantor Sindy Sanches Address [address] [place] [address] Email Payer [facility] Policy Number [id number] Subscriber's Name VerónicaSindy Veras Relationship 18 Self / Same As Patient Group Number [id number] Group Name RETIRED Effective Date 17 Payer Medicare A & B Policy Number [id number] Subscriber's Name Sindy Sanches Relationship 18 Self / Same As Patient Group Number [id number] Group Name RETIRED Effective Date 01 Advance Directives Directive Response Recorded Date/Time Does the patient have an advance directive? No 11/18/17 5:30pm If yes, is advance directive on file with [facility]? Yes 08/30/17 3:20pm If not on file with [facility] will patient provide a copy? No 10/09/17 7:13pm Do you have a Directive to Physician? No 11/18/17 12:09pm Do you have a Medical Power of Assistant Public Defender? No 11/18/17 12:09pm Do you have an out of hospital Do Not Resuscitate Order? No 11/18/17 12:09pm Do you have any special needs we should be aware of? No 11/18/17 12:09pm Do you have a support person here with you today? Yes 11/18/17 12:09pm Did patient receive Notice of Privacy Practices? Yes 11/18/17 12:09pm Did patient receive patient rights and responsibilities? Yes 11/18/17 12:09pm Problems Medical Problem Onset Date Status Coumadin toxicity Unknown Epistaxis Unknown Medications Current Home Medications Medication Dose Units Route Directions Days Qty Instructions Start Date Allopurinol 300 Mg Tablet 300 Mg Oral Daily 30 Tab Buspirone Hcl 5 Mg Tablet 7.5 Mg Oral Twice A Day 60 Tab Calcium Carbonate/Vitamin D3 (Calcium 500+D Tablet Chew) 1 Each Tab.chew 1 Tab Oral Twice A Day Eliquis 2.5 Mg Oral Every 12 Hours Ferrous Sulfate 325 Mg Tablet. 1 Tab Oral Daily Folic Acid 1 Mg Tablet 1 Mg Oral Daily 30 Tab Furosemide 40 Mg Tablet 40 Mg Oral Daily 30 Tab Insulin Detemir (Levemir) 100 Unit/1 Ml Vial 18 Units Subcutaneously Before Breakfast Insulin Detemir (Levemir) 100 Unit/1 Ml Vial 20 Units Sub-Q Bedtime Insulin Lispro (Humalog) 100 Unit/1 Ml Cartridge 4 Units Subcutaneously Before Meals And At Bedtime Levothyroxine Sodium 75 Mcg Tablet 100 Mcg Oral Daily 30 Tab Magnesium Oxide 400 Mg Tablet 400 Mg Oral Twice A Day Melatonin 3 Mg Tablet 5 Mg Oral Daily Metoprolol Tartrate 50 Mg Tablet 12.5 Mg Oral Twice A Day Midodrine Hcl 2.5 Mg Tablet 2.5 Mg Oral Three Times A Day Omeprazole 40 Mg Capsule.dr 1 Tab Oral Daily Verapamil Hcl (Verapamil Er) 120 Mg Cap24h.pel 40 Mg Oral Twice A Day Past Home Medications Medication Directions Ordered Status Acetaminophen 650 Mg Supp, 650 Mg Oral Every 4 Hours as needed for Prn Discontinued Ciprofloxacin Hcl (Cipro) 500 Mg Tablet, 250 Mg Oral Every 12 Hours Discontinued Digoxin 125 Mcg Tablet, 0.125 Mg Oral Every 72 Hours Discontinued Doxycycline Hyclate 100 Mg Capsule, 100 Mg Oral Every 12 Hours Discontinued Enoxaparin Sodium (Lovenox) 60 Mg/0.6 Ml Inj, 80 Mg Subcutaneously Discontinued Fluconazole 100 Mg Tablet, 100 Mg Oral Daily Discontinued Levofloxacin (Levaquin) 500 Mg Tablet, 500 Mg Oral Daily Discontinued Levothyroxine Sodium 100 Mcg Vial, 100 Mcg Oral Daily Discontinued Metolazone 5 Mg Tablet, 2.5 Mg Oral Daily Discontinued Mupirocin 22 Gm Oint...g., 22 Gm Topically Twice A Day Discontinued Jxzestqwacxm-Dqqs-Vqarahdg,Iso (Zosyn 3.375 Gm Galaxy Bag) 3.375 Gm/50 Ml Froz.piggy, 2.25 Gm IvPush Every 8 Hours Discontinued Potassium Chloride 10 Meq Tab.er.prt, 10 Meq Oral Daily Discontinued Tamsulosin Hcl (Flomax*) 0.4 Mg Cap, 0.4 Mg Oral Daily Discontinued Warfarin Sodium 2 Mg Tablet, 4 Mg Oral Daily Discontinued Family History Relationship Condition Age at Onset Recorded Date/Time Not Specified Family history of diabetes mellitus Not Recorded 06/21/2017 2: 18pm Social History Social History Problem Response Recorded Date/Time Onset Date Status Hx Psychiatric Problems No 11/18/2017 5:30pm Not Applicable Not Applicable Hx Eating Disorder No 11/18/2017 5:30pm Not Applicable Not Applicable Hx Substance Use Disorder No 11/18/2017 5:30pm Not Applicable Not Applicable Hx Depression No 11/18/2017 5:30pm Not Applicable Not Applicable Hx Alcohol Use No 11/18/2017 5:30pm Not Applicable Not Applicable Hx Substance Use Treatment No 11/18/2017 5:30pm Not Applicable Not Applicable Hx Physical Abuse No 11/18/2017 5:30pm Not Applicable Not Applicable Smoking Status Start Date Stop Date Never Smoker Hospital Discharge Instructions No hospital discharge instruction information available. Plan of Care Discharge Date 12/04/17 7:11pm Disposition HOME, SELF-CARE Instructions/Education Provided Anemia Prescriptions See Medication Section Referrals JA RUFF MD (Urology) Order Date: 1 Month Entered Date: 12/04/2017 6:24pm Address: [facility] [address] [id number] SERA MONCADA MD (Internal Medicine) Order Date: 1 Week Entered Date: 12/04/2017 6:25pm Address: [address] [place] [address] [address] [facility] [place] [address] Additional Instructions/Education Diabetic diet Activity as tolerated Functional Status Query Response Date Recorded FUNCTIONAL STATUS ` November 29, 2017 2:40pm Assistive Devices None November 18, 2017 5:30pm Ambulation Ability Maximum Assistance November 18, 2017 5:30pm Toileting Ability Maximum Assistance December 02, 2017 9:41am Allergies, Adverse Reactions, Alerts Allergen Type Severity Reaction Status Last Updated Codeine Allergy Severe SEVERE NAUSEA/VOMITING Active 10/09/17 Immunizations No immunization information available. Vital Signs Acute Vital Signs Vital Response Date/Time Temperature (Fahrenheit) 95.7 degrees F (97.6 - 99.5) 12/04/2017 4:00pm Pulse Pulse Rate (adult) 96 bpm (60 - 90) 12/04/2017 4:00pm Respiratory Rate 18 bpm (12 - 24) 12/04/2017 4:00pm Blood Pressure 145/76 mm Hg 12/04/2017 4:00pm Height 5 ft 10 in 11/20/2017 8:00pm Weight 246 lb 11/26/2017 12:00am Body Mass Index 35.3 kg/m^2 11/27/2017 12:00am Results Laboratory Results Test Name Result Units Flags Reference Collection Date/Time Result Date/ Time Comments Vancomycin Level Trough 12.1 ug/mL *H 5.0-10.0 06/23/2017 12:00pm 2016 1:08pm Results called to RUDDY LOJA at 1306 on 06/23/17 by Jillian Mckinnon. RB OK. Erythrocyte Sedimentation Rate 41 mm/hr H 0-13 07/25/2017 10:00am 2016 1:26pm Urine Amorphous Sediment FEW FEW 07/23/2017 2:50pm 07/23/2017 3:48pm Magnesium Level 1.8 MG/DL 1.3-2.1 07/30/2017 5:57am 07/30/2017 7:12am B-Type Natriuretic Peptide 184.2 pg/mL H 0-100 07/23/2017 11:30am 2016 1:13pm Creatine Kinase 15 IU/L L 30-200 07/24/2017 6:25am 07/24/2017 7:25am Creatine Kinase MB 1.10 ng/mL 0.00-5.00 07/24/2017 6:25am 07/24/2017 7: 28am Troponin I 0.015 ng/mL 0-0.300 07/24/2017 6:25am 07/24/2017 7:28am Digoxin Level 0.34 ng/mL L 0.8-2.0 07/23/2017 11:30am 07/23/2017 3:04pm C-Reactive Protein 24.2 mg/L H 0.0-4.9 07/25/2017 10:00am 07/26/2017 11: 07am Performed at: - [facility] [id number] Personal Insurance Advisor: Mars Selby MD, Phone: [phone] Macrocytosis SLIGHT 09/05/2017 6:50am 09/05/2017 10:51am Urine Transitional Epithelial Cells MANY NONE 09/01/2017 12:15am 12:47am Iron Level 99 ug/dL 65-175 08/31/2017 2:35pm 08/31/2017 5:45pm Total Iron Binding Capacity 245 ug/dL L 261-478 08/31/2017 2:35pm 2016 5:45pm Percent Iron Saturation 40 % 15-50 08/31/2017 2:35pm 08/31/2017 5:45pm Transferrin 175 mg/dL 174-364 08/31/2017 2:35pm 08/31/2017 5:45pm Ferritin 170.60 ng/mL 21.81-274.66 08/31/2017 2:35pm 08/31/2017 6:05pm Folate 5.6 ng/mL L 7.0-15.4 08/31/2017 2:35pm 08/31/2017 6:26pm Vitamin B12 Level 319 pg/mL 232-1245 08/31/2017 2:55pm 09/03/2017 11: 09am Please note reference interval change Performed at: [address] [id number] Personal Insurance Advisor: Mars Selby MD, Phone: [phone] Stool Occult Blood POSITIVE H NEGATIVE 08/31/2017 6:02pm 08/31/2017 6: 42pm Lactic Acid Level 16.5 MG/DL 4.5-19.8 10/09/2017 8:15pm 10/09/2017 9: 04pm White Blood Count 9.61 x10e3/uL 4.8-10.8 12/02/2017 6:39am 12/02/2017 7 :34am Red Blood Count 2.68 x10e6/uL L 4.3-5.7 12/02/2017 6:39am 12/02/2017 7: 34am Hemoglobin 8.0 g/dL L 14.0-18.0 12/02/2017 6:39am 12/02/2017 7:34am Hematocrit 25.3 % L 38.2-49.6 12/02/2017 6:3912/02/2017 7:34am Mean Corpuscular Volume 94.4 fL 81-99 12/02/2017 6:3912/02/2017 7: 34am Mean Corpuscular Hemoglobin 29.9 pg 28-32 12/02/2017 6:3912/02/2017 7:34am Mean Corpuscular Hemoglobin Concent 31.6 g/dL 31-35 12/02/2017 6:3912/02/2017 7:34am Red Cell Distribution Width 19.5 % H 11.7-14.4 12/02/2017 6:392017 7:34am Platelet Count 151 x10e3/uL 140-360 12/02/2017 6:3912/02/2017 7: 34am Neutrophils (%) (Auto) 44.5 % 38.7-80.0 12/02/2017 6:3912/02/2017 7: 34am Lymphocytes (%) (Auto) 16.0 % L 18.0-39.1 12/02/2017 6:39am 12/02/2017 7 :34am Monocytes (%) (Auto) 21.9 % H 4.4-11.3 12/02/2017 6:3912/02/2017 7: 34am Eosinophils (%) (Auto) 1.2 % 0.0-6.0 12/02/2017 6:3912/02/2017 7: 34am Basophils (%) (Auto) 0.5 % 0.0-1.0 12/02/2017 6:39am 12/02/2017 7:34am IM GRANULOCYTES % 15.9 % H 0.0-1.0 12/02/2017 6:39am 12/02/2017 7:34am Neutrophils # (Auto) 4.3 2.1-6.9 12/02/2017 6:39am 12/02/2017 7:34am Lymphocytes # (Auto) 1.5 1.0-3.2 12/02/2017 6:39am 12/02/2017 7:34am Monocytes # (Auto) 2.1 H 0.2-0.8 12/02/2017 6:39am 12/02/2017 7:34am Eosinophils # (Auto) 0.1 0.0-0.4 12/02/2017 6:39am 12/02/2017 7:34am Basophils # (Auto) 0.1 0.0-0.1 12/02/2017 6:39am 12/02/2017 7:34am Absolute Immature Granulocyte (auto 1.53 x10e3/uL H 0-0.1 12/02/2017 6: 39am 12/02/2017 7:34am Differential Total Cells Counted 100 12/02/2017 6:39am 12/02/2017 8 :33am Neutrophils % (Manual) 55 % 40-74 12/02/2017 6:39am 12/02/2017 8:33am Band Neutrophils % 1 % 12/02/2017 6:39am 12/02/2017 8:33am Lymphocytes % (Manual) 20 % 19-48 12/02/2017 6:39am 12/02/2017 8:33am Monocytes % (Manual) 14 % H 3.4-9.0 12/02/2017 6:39am 12/02/2017 8:33am Eosinophils % (Manual) 1 % 0-7 12/02/2017 6:39am 12/02/2017 8:33am Basophils % (Manual) 3 % H 0-1.5 11/29/2017 6:40am 11/29/2017 7:57am Metamyelocytes % 2 % H 0-0 12/02/2017 6:39am 12/02/2017 8:33am Myelocytes % 7 % H 0-0 12/02/2017 6:39am 12/02/2017 8:33am Promyelocytes % 1 % H 0-0 11/21/2017 6:11am 11/21/2017 10:22am Reactive Lymphocytes 1 11/29/2017 6:40am 11/29/2017 7:57am Nucleated Red Blood Cells 1 11/22/2017 6:26am 11/22/2017 9:21am Platelet Estimate ADEQUATE 12/02/2017 6:39am 12/02/2017 8:33am Platelet Morphology Comment FEW LARGE 12/02/2017 6:39am 12/02/2017 8:33am Hypochromasia SLIGHT 11/26/2017 6:21am 11/26/2017 8:42am Poikilocytosis SLIGHT 11/21/2017 6:11am 11/21/2017 10:22am Anisocytosis SLIGHT 11/29/2017 6:40am 11/29/2017 7:57am Red Cell Morphology Comment NORMAL 12/02/2017 6:39am 12/02/2017 8: 33am Prothrombin Time 16.7 seconds H 11.9-14.5 12/04/2017 6:34am 12/04/2017 7 :06am Prothromb Time International Ratio 1.46 12/04/2017 6:34am 2017 7:06am Oral Anticoagulant Therapy INR Values: 1. Low Intensity Therapy 1.5 - 2.0 2. Moderate Intensity Therapy 2.0 - 3.0 3. High Intensity Therapy(1) 2.5 - 3.5 4. High Intensity Therapy(2) 3.0 - 4.0 5. Panic Value INR > 5.0 Activated Partial Thromboplast Time 97.9 seconds H 23.8-35.5 11/24/2017 7 :47am 11/24/2017 8:44am Urine Color YELLOW YELLOW 11/19/2017 12:15am 11/19/2017 12:29am Urine Clarity SL CLOUDY H CLEAR 11/19/2017 12:15am 11/19/2017 12:29am Urine Specific [place] 1.010 1.010-1.025 11/19/2017 12:15am 2017 12:29am Urine pH 5 5 - 7 11/19/2017 12:15am 11/19/2017 12:29am Urine Leukocyte Esterase 2+ H NEGATIVE 11/19/2017 12:15am 11/19/2017 12:29am Urine Nitrite POSITIVE H NEGATIVE 11/19/2017 12:15am 11/19/2017 12: 29am Urine Protein NEGATIVE NEGATIVE 11/19/2017 12:15am 11/19/2017 12: 29am Urine Glucose (UA) NEGATIVE NEGATIVE 11/19/2017 12:15am 11/19/2017 12 :29am Urine Ketones NEGATIVE NEGATIVE 11/19/2017 12:15am 11/19/2017 12: 29am Urine Urobilinogen 0.2 mg/dL 0.2 - 1 11/19/2017 12:15am 11/19/2017 12: 29am Urine Bilirubin NEGATIVE NEGATIVE 11/19/2017 12:15am 11/19/2017 12: 29am Urine Blood 4+ H NEGATIVE 11/19/2017 12:15am 11/19/2017 12:29am Urine WBC 21-50 /HPF H 0-5 11/19/2017 12:15am 11/19/2017 12:35am Urine RBC 11-20 /HPF H 0-5 11/19/2017 12:15am 11/19/2017 12:35am Urine Bacteria MANY /HPF H NONE 11/19/2017 12:15am 11/19/2017 12:35am Urine Epithelial Cells RARE /LPF NONE 11/19/2017 12:15am 11/19/2017 12: 35am Sodium Level 137 mmol/L 136-145 12/02/2017 6:39am 12/02/2017 7:42am Potassium Level 4.0 mmol/L 3.5-5.1 12/02/2017 6:39am 12/02/2017 7:42am Chloride Level 96 mmol/L L 98-107 12/02/2017 6:39am 12/02/2017 7:42am Carbon Dioxide Level 31 mmol/L H 22-12/02/2017 6:39am 12/02/2017 7: 42am Anion Gap 14.0 mmol/L 8-16 12/02/2017 6:39am 12/02/2017 7:42am Blood Urea Nitrogen 42 mg/dL H 7-12/02/2017 6:39am 12/02/2017 7:42am Creatinine 1.91 mg/dL H 0.72-1.25 12/02/2017 6:39am 12/02/2017 7:42am BUN/Creatinine Ratio 22 6-12/02/2017 6:39am 12/02/2017 7:42am Estimat Glomerular Filtration Rate 34 ML/MIN L 60- 12/02/2017 6:39am 7:42am Ranges were taken from the National Kidney Disease Education Program and the National Kidney Foundation literature. Reference ranges: 60 or greater: Normal 16-59 (for 3 consecutive months): Chronic kidney disease 15 or less: Kidney failure Glucose Level 160 mg/dL H 74-118 12/02/2017 6:39am 12/02/2017 7:42am Calcium Level 8.8 mg/dL 8.4-10.2 12/02/2017 6:39am 12/02/2017 7:42am Bedside Glucose 132 mg/dL H 70-120 12/04/2017 4:18pm 12/04/2017 5:49pm Meter ID: [id number] Total Bilirubin 0.4 mg/dL 0.2-1.2 12/01/2017 9:53am 12/01/2017 10:45am Aspartate Amino Transf (AST/SGOT) 11 IU/L 5-34 12/01/2017 9:53am 2017 10:45am Alanine Aminotransferase (ALT/SGPT) 7 IU/L 0-55 12/01/2017 9:53am 12/01 10:45am Total Protein 5.6 g/dL L 6.5-8.1 12/01/2017 9:53am 12/01/2017 10:45am Albumin 2.4 g/dL L 3.5-5.0 12/01/2017 9:53am 12/01/2017 10:45am Globulin 3.2 g/dL 2.3-3.5 12/01/2017 9:53am 12/01/2017 10:45am Albumin/Globulin Ratio 0.8 0.8-2.0 12/01/2017 9:53am 12/01/2017 10: 45am Alkaline Phosphatase 209 IU/L H 40-150 12/01/2017 9:53am 12/01/2017 10: 45am Thyroid Stimulating Hormone (TSH) 1.770 uIU/mL 0.350-4.940 11/22/2017 6: 26am 11/22/2017 7:33am Microbiology Results Procedure Source Organism/Result Collection Date/Time Result Date/Time Result Status Urine Culture Urine,[place] CITROBACTER FREUNDII 11/19/2017 12:15am 05/2018 6:02am Final Genital Culture Penis ESCHERICHIA COLI 11/20/2017 6:15pm 11/23/2017 8: 43am Final Procedures Procedure Status Date Provider(s) DETACHMENT AT RIGHT FOOT, PARTIAL 1ST RAY, OPEN APPROACH Completed 06/21/17 ONELIA PATRICIO DPM REPLACE R FOOT SKIN W NONAUT SUB, FULL THICK, PARALEGAL SUPERVISOR Completed 06/21/17 ONELIA PATRICIO DPM INSERTION OF INFUSION DEV INTO SUP VENA CAVA, PERC APPROACH Completed HEATHER BURGESS MD EXCISION OF DUODENUM, ENDO, DIAGN Completed 07/26/17 FRANCISCO SOTO MD EXCISION OF STOMACH, PYLORUS, ENDO, DIAGN Completed 07/26/17 FRANCISCO SOTO MD EXCISION OF ASCENDING COLON, ENDO, DIAGN Completed 07/27/17 ALEXANDRA LAZO MD EXCISION OF DESCENDING COLON, ENDO, DIAGN Completed 07/27/17 ALEXANDRA LAZO MD EXCISION OF TRANSVERSE COLON, ENDO, DIAGN Completed 07/27/17 ALEXANDRA LAZO MD TRANSFUSE NONAUT RED BLOOD CELLS IN PERIPH VEIN, PERC Completed 07/29/17 BEATRIZ FRANKLIN MD INSPECTION OF UPPER INTESTINAL TRACT, ENDO Completed 09/03/17 ASCENCION MCKEON MD INTRODUCTION OF DESTRUCTIVE AGENT INTO NOSE, PARALEGAL SUPERVISOR APPROACH Completed RUPAL HENDRICKSON MD INSPECTION OF NASAL MUCOSA AND SOFT TISSUE, PARALEGAL SUPERVISOR APPROACH Completed RUPAL HENDRICKSON MD INSERTION OF INFUSION DEV INTO SUP VENA CAVA, PERC APPROACH Completed DELMIS MCKEON MD TRANSFUSE NONAUT FROZEN PLASMA IN PERIPH VEIN, PERC Completed 08/30/17 DELMIS MCKEON MD TRANSFUSE NONAUT RED BLOOD CELLS IN PERIPH VEIN, PERC Completed 08/31/17 DELMIS MCKEON MD INSERTION OF FEEDING DEVICE INTO JEJUNUM, ENDO Completed 09/03/17 ASCENCION MCKEON MD Cystoscopy with retrograde pyelography Completed 11/29/17 JA RUFF MD X-ray of chest, two views Active 06/20/17 ONELIA PATRICIO DPM Ultrasound guidance for vascular access Active 06/24/17 CHELSI MAGALLON Computed tomography of brain without radiopaque contrast Active 07/23/17 LEXA GARCIA Magnetic resonance imaging of brain without contrast Active 07/29/[address] of abdomen and pelvis without contrast Active 11/21/17 JA RUFF MD Encounters Encounter Location Arrival/Admit Date Discharge/Depart Date Attending Provider Discharged Inpatient [facility] 11/18/17 12:08pm 7:11pm SERA MONCADA MD Departed Emergency Room [facility] 10/09/17 6:35pm 12:57am JOLENE MORTON MD Discharged Inpatient [facility] 08/30/17 1:33pm 09/06/17 7:11pm DELMIS MCKEON MD Discharged Inpatient [facility] 07/24/17 9:00am 07/30/17 8:26pm BEATRIZ FRANKLIN MD Discharged Inpatient [facility] 06/21/17 1:06pm 06/24/17 9:42pm OLESYA BENOIT MD
--- NOTE | 2017-12-30 18:49 | Diagnostic Imaging Report ---
EXAMINATION: Head CT HISTORY: Headaches and ear pain for several weeks COMPARISON: Brain MRI on 07/29/2017 TECHNIQUE: Multidetector axial images were obtained without contrast from the foramen magnum to the vertex . The images were reconstructed using brain and bone algorithms. Thin section brain images were reformatted into coronal and sagittal planes. Intravenous contrast: None. Motion/streaking artifact limits the evaluation of the skull base and posterior cranial fossa. FINDINGS: Parenchyma: 1. Few scattered and mildly confluent periventricular white matter hypodensities, most likely nonspecific chronic microvascular ischemic changes. 2. No mass or hemorrhage. No CT evidence of acute territorial vascular insult. Extra-axial spaces:No abnormal density. No extra-axial fluid collections Brain volume: Mild generalized volume loss Ventricles: No hydrocephalus or displacement. Arteries: No density suggestive of thrombus. Dural sinuses: No abnormal density. Extra-axial spaces: No abnormal density. Foramen magnum: No mass, Chiari malformation, or basilar invagination. Sella: No obvious mass. Paranasal/mastoid sinuses: Imaged portions unremarkable. Skull/Scalp: No lytic or blastic lesions. No fractures. IMPRESSION: 1. No acute intracranial abnormalities, particularly no hemorrhage, mass or hydrocephalus. 2. Persistent mild chronic microvascular ischemic changes and generalized brain volume loss. Signed by: Dr. Katerina Bejarano M.D. on 12/30/2017 6:45 PM
== END 2017-12-30 21:36 | disposition home or self-care (01) ==
LOC: ER 17:08
DX: H60.313 Diffuse otitis externa, bilateral (principal); I10 Essential (primary) hypertension; E11.9 Type 2 diabetes mellitus without complications; I48.91 Unspecified atrial fibrillation
CPT/HCPCS: 70450; 99283

== ENCOUNTER 2018-01-01 06:15 | Inpatient (IN) | payer MEDICARE ==
[~2018-01-01] VITALS: Ht 177.8 cm; Wt 105.5 kg
--- OUTSIDE RECORDS SUMMARY | 2018-01-01 06:19 | XMS REPORT | Continuity of Care Document ---
Author Author [facility] Organization [facility] Address [address] [place] [address] Phone Unavailable Care Team Providers Care Straightening Press Operator Name Role Phone SERA MONCADA MD PCP Insurance Providers Guarantor Sindy Sanches Address [address] [place] [address] Email Payer [facility] Policy Number [id number] Subscriber's Name Sindy Sanches Relationship 18 Self / Same As Patient Group Number [id number] Group Name RETIRED Effective Date 17 Payer Medicare A & B Policy Number [id number] Subscriber's Name Sindy Sanches Relationship 18 Self / Same As Patient Group Number [id number] Group Name RETIRED Effective Date 01 Advance Directives Directive Response Recorded Date/Time Does the patient have an advance directive? No 11/18/17 5:30pm If yes, is advance directive on file with [facility]? Yes 08/30/17 3:20pm If not on file with [facility] will patient provide a copy? No 10/09/17 7:13pm Do you have a Directive to Physician? No 12/30/17 6:04pm Do you have a Medical Power of Diversity Manager? No 12/30/17 6:04pm Do you have an out of hospital Do Not Resuscitate Order? No 12/30/17 6:04pm Do you have any special needs we should be aware of? No 12/30/17 6:04pm Do you have a support person here with you today? Yes 12/30/17 6:05pm Did patient receive Notice of Privacy Practices? Yes 12/30/17 6:05pm Did patient receive patient rights and responsibilities? Yes 12/30/17 6:05pm Problems Medical Problem Onset Date Status Coumadin [...] Every 12 Hours Ferrous Sulfate 325 Mg Tablet.dr 1 Tab Oral Daily Folic Acid 1 [...] 22 Gm Topically Twice A Day Discontinued Muspzupysvek-Npgw-Aolwghke,Iso (Zosyn 3.375 Gm Galaxy Bag) 3.375 Gm/50 [...] No 11/18/2017 5:30pm Not Applicable Not Applicable Hospital Discharge Instructions No hospital discharge instruction information available. Plan of Care Discharge Date 12/30/17 9:36pm Disposition HOME, SELF-CARE Condition at Discharge Stable Instructions/Education Provided Otitis Externa - Adult Forms Provided Work/School Excuse Prescriptions See Medication Section Referrals SERA MONCADA MD Order Date: Call for an appointment Address: [address] [place] [id number] Additional Instructions/Education take medications as prescribed follow-up with your primary care provider, call for appointment Functional Status No functional status information available. Allergies, Adverse Reactions, Alerts Allergen Type Severity [...] 12/04/2017 4:00pm Height 5 ft 10 in 12/30/2017 5:11pm Weight 246 lb 12/30/2017 5:11pm Body Mass Index 35.3 kg/m^2 12/30/2017 5:11pm Results Laboratory Results Test Name Result Units [...] 10:00am 07/26/2017 11: 07am Performed at: - [facility] [id number] Super[facility]: Mars Selby MD, Phone: [phone] Macrocytosis SLIGHT 09/05/2017 6:50am 09/05/2017 10:51am Urine [...] Please note reference interval change Performed at: [address] [id number] Supervisor [facility]: Mars Selby MD, Phone: [phone] Stool Occult Blood POSITIVE H NEGATIVE 08/31/2017 [...] (%) (Auto) 16.0 % L 18.0-39.1 12/02/2017 6:3912/02/2017 7 :34am Monocytes (%) (Auto) 21.9 % H 4.4-11.3 12/02/2017 6:3912/02/2017 7: 34am Eosinophils (%) (Auto) 1.2 % 0.0-6.0 12/02/2017 6:3912/02/2017 7: 34am Basophils (%) (Auto) 0.5 % 0.0-1.0 12/02/2017 6:3912/02/2017 7:34am IM GRANULOCYTES % 15.9 % H 0.0-1.0 12/02/2017 6:3912/02/2017 7:34am Neutrophils # (Auto) 4.3 2.1-6.9 12/02/2017 6:3912/02/2017 7:34am Lymphocytes # (Auto) 1.5 1.0-3.2 12/02/2017 6:3912/02/2017 7:34am Monocytes # (Auto) 2.1 H 0.2-0.8 12/02/2017 6:3912/02/2017 7:34am Eosinophils # (Auto) 0.1 0.0-0.4 12/02/2017 [...] CLEAR 11/19/2017 12:15am 11/19/2017 12:29am Urine Specific [place] 1.010 1.010-1.025 11/19/2017 12:15am 2017 12:29am Urine [...] 7:42am Carbon Dioxide Level 31 mmol/L H 22-29 12/02/2017 6:39am 12/02/2017 7: 42am Anion Gap 14.0 mmol/L 8-16 12/02/2017 6:39am 12/02/2017 7:42am Blood Urea Nitrogen 42 mg/dL H 7-26 12/02/2017 6:39am 12/02/2017 7:42am Creatinine 1.91 mg/dL H 0.72-1.25 12/02/2017 6:39am 12/02/2017 7:42am BUN/Creatinine Ratio 22 6-25 12/02/2017 6:39am 12/02/2017 7:42am Estimat Glomerular Filtration Rate [...] 70-120 12/04/2017 4:18pm 12/04/2017 5:49pm Meter ID: [id number] Total Bilirubin 0.4 mg/dL 0.2-1.2 12/01/2017 9:53am [...] FOOT SKIN W NONAUT SUB, FULL THICK, PERINATAL NURSE Completed 06/21/17 ONELIA PATRICIO DPM INSERTION OF [...] MD INTRODUCTION OF DESTRUCTIVE AGENT INTO NOSE, PERINATAL NURSE APPROACH Completed RUPAL HENDRICKSON MD INSPECTION OF NASAL MUCOSA AND SOFT TISSUE, PERINATAL NURSE APPROACH Completed RUPAL HENDRICKSON MD INSERTION OF INFUSION DEV INTO SUP VENA CAVA, PERC APPROACH Completed DELMIS MCKEON MD TRANSFUSE NONAUT FROZEN PLASMA IN PERIPH VEIN, PERC Completed 08/30/17 DELMIS MCKEON MD TRANSFUSE NONAUT RED BLOOD CELLS IN PERIPH VEIN, PERC Completed 08/31/17 DELMIS MCKEON MD INSERTION OF FEEDING DEVICE INTO JEJUNUM, ENDO Completed 09/03/17 ASCENCION MCKEON MD INTRODUCTION OF DESTRUCTIVE AGENT INTO NOSE, PERINATAL NURSE APPROACH Completed RICA HENDRICKSON DRAINAGE OF BLADDER WITH DRAINAGE DEVICE, PERC ENDO APPROACH Completed JA RUFF MD FLUOROSCOPY KIDNEY, URETER, BLADDER, L W L OSM CONTRAST Completed 11/29/17 JA RUFF MD FLUOROSCOPY KIDNEY, URETER, BLADDER, R W L OSM CONTRAST Completed 11/29/17 JA RUFF MD TRANSFUSE NONAUT FROZEN PLASMA IN PERIPH VEIN, PERC Completed 11/18/17 ANTONIO RODRIGUEZ MD TRANSFUSE NONAUT RED BLOOD CELLS IN PERIPH VEIN, PERC Completed 11/18/17 ANTONIO RODRIGUEZ MD X-ray of chest, two views Active 06/20/17 ONELIA APTRICIO DPM Ultrasound guidance for vascular access Active 06/24/17 CHELSI MAGALLON Computed tomography of brain without radiopaque contrast Active 07/23/17 LEXA GARCIA Magnetic resonance imaging of brain without contrast Active 07/29/[address] of abdomen and pelvis without contrast Active 11/21/17 JA RUFF MD Computed tomography of brain without radiopaque contrast Active 12/30/17 ANTONIO RODRIGUEZ MD Encounters Encounter Location Arrival/Admit Date Discharge/Depart Date Attending Provider Departed Emergency Room [facility] 12/30/17 5:08pm 9:36pm ANTONIO RODRIGUEZ MD Discharged Inpatient [facility] 11/18/17 12:08pm 7:11pm SERA MONCADA MD Departed Emergency Room [facility] 10/09/17 6:35pm 12:57am JOLENE MORTON MD Discharged Inpatient [facility] 08/30/17 1:33pm 09/06/17 7:11pm DELMIS MCKEON MD Discharged Inpatient [facility] 07/24/17 9:00am 07/30/17 8:26pm BEATRIZ FRANKLIN MD Discharged Inpatient [facility] 06/21/17 1:06pm 06/24/17 9:42pm OLESYA BENOIT MD
[2018-01-01 08:17] LABS: BASOPHILS % 0.5 % (0.0-1.0); EOSINOPHILS % 0.5 % (0.0-6.0); HEMOGLOBIN 9.4 g/dL (14.0-18.0); LYMPHOCYTES # (AUTO) 0.7 (1.0-3.2); LYMPHOCYTES % 10.6 % (18.0-39.1); MEAN CORPUSCULAR HEMOGLOBIN 31.2 pg (28-32); MEAN CORPUSCULAR HGB CONC 31.3 g/dL (31-35); MEAN CORPUSCULAR VOLUME 99.7 fL (81-99); MONOCYTES # (AUTO) 0.4 (0.2-0.8); MONOCYTES % 6.7 % (4.4-11.3); NEUTROPHILS # (AUTO) 4.4 (2.1-6.9); NEUTROPHILS % 68.9 % (38.7-80.0); PLATELET COUNT 137 x10e3/uL (140-360); RED BLOOD COUNT 3.01 x10e6/uL (4.3-5.7); RED CELL DISTRIBUTION WIDTH 21.7 % (11.7-14.4)
[2018-01-01 08:34] LABS: INR 1.73
[2018-01-01 08:35] LABS: PARTIAL THROMBOPLASTIN TIME 42.2 seconds (23.8-35.5)
[2018-01-01 08:41] LABS: BILIRUBIN,URINE NEGATIVE (NEGATIVE); CLARITY,URINE CLOUDY (CLEAR); COLOR,URINE YELLOW (YELLOW); KETONES,URINE NEGATIVE (NEGATIVE); LEUKOCYTE ESTERASE ,URINE 1+ (NEGATIVE); NITRITE,URINE POSITIVE (NEGATIVE); PROTEIN,URINE DIPSTICK 2+ (NEGATIVE); URINE UROBILINOGEN 0.2 mg/dL (0.2 - 1)
[2018-01-01 08:44] LABS: ALANINE AMINOTRANSFERASE 7 IU/L (0-55); ALBUMIN/GLOBULIN RATIO 0.9 (0.8-2.0); ALKALINE PHOSPHATASE 145 IU/L (40-150); ANION GAP 16.4 mmol/L (8-16); BLOOD UREA NITROGEN 19 mg/dL (7-26); BUN/CREATININE RATIO 13 (6-25); CALCIUM 8.9 mg/dL (8.4-10.2); CARBON DIOXIDE 23 mmol/L (22-29); CHLORIDE 104 mmol/L (98-107); CREATINE KINASE 20 IU/L (30-200); CREATININE, SERUM 1.51 mg/dL (0.72-1.25); EST GLOMERULAR FILTRATION RATE 45 ML/MIN (60-); GLUCOSE 183 mg/dL (74-118); POTASSIUM 4.4 mmol/L (3.5-5.1); SODIUM 139 mmol/L (136-145)
[2018-01-01 08:48] LABS: BACTERIA,URINE MANY /HPF; EPITHELIAL CELLS,URINE FEW /LPF; RBC,URINE 21-50 /HPF (0-5); WBC,URINE (MAN) >50 /HPF (0-5)
--- NOTE | 2018-01-01 09:06 | Diagnostic Imaging Report ---
PROCEDURE: A single AP view of the chest. COMPARISON: Portable chest 11/23/2017. INDICATIONS: SHORTNESS OF BREATH FINDINGS: Lines/tubes: None. Lungs: No focal consolidation. No parenchymal mass. Bibasilar atelectasis. Pleura: Minimal fluid is present in the right median fissure. No pneumothorax. Heart and mediastinum: The heart and the mediastinum are unremarkable. Bones: No acute bony abnormality. Kyphoplasty changes of a midthoracic vertebral body. Degenerative changes of the thoracic spine. Chronic changes of the left shoulder. IMPRESSION: No acute radiographic abnormality. Dictated by: Patrick Oliver M.D. on 01/01/2018 at 9:07 Electronically approved by: Patrick Oliver M.D. on 01/01/2018 at 9:07
[2018-01-01] MEDS ORDERED: MEROPENEM 1GRAM 1 GM in SODIUM CHLORIDE 0.9% 100 ML 100 ML IV STA (09:43)
[2018-01-01] MEDS ORDERED: DEXTROSE 50% SYRINGE 50 ML IV PRN ×2 (10:15→21:45)
[2018-01-01] MEDS ORDERED: ONDANSETRON HCL INJ 2 MG/ML VIAL IV PRN (10:15)
[2018-01-01] MEDS ORDERED: SODIUM CHLORIDE FLUSH 10 ML SYR INJ PRN (10:15)
[2018-01-01] MEDS ORDERED: PANTOPRAZOLE SO40 MG PO (10:24)
[2018-01-01] MEDS ORDERED: ANTARA PO (10:24)
[2018-01-01] MEDS ORDERED: MEROPENEM 1 GM VIAL IV ONE (10:30)
[2018-01-01] MEDS: MEROPENEM 1 GM VIAL IV SCH ×2 (10:40→21:06)
[2018-01-01 12:50] VITALS: BP 156/94
[2018-01-01 12:52] VITALS: BP 156/94
[2018-01-01 13:39] LABS: LYMPHOCYTES % (MANUAL) 10 % (19-48); METAMYELOCYTES % (MANUAL) 3 % (0-0); MONOCYTES % (MANUAL) 4 % (3.4-9.0); MYELOCYTES % (MANUAL) 2 % (0-0); NEUTROPHILS % (MANUAL) 76 % (40-74); PROMYELOCYTES % (MANUAL) 3 % (0-0)
[2018-01-01 13:40] LABS: ANISOCYTOSIS SLIGHT; HYPOCHROMASIA SLIGHT; PLATELET ESTIMATE SLIGHTLY DECREASED; PLATELET MORPHOLOGY COMMENT FEW LARGE; POIKILOCYTOSIS SLIGHT; RBC MORPHOLOGY COMMENT NORMAL
[2018-01-01 16:55] VITALS: BP 140/84
[2018-01-01 17:19] LABS: CREATINE KINASE 20 IU/L (30-200)
[2018-01-01] MEDS ORDERED: ZIPRASIDONE 20 MG VIAL IM PRN (18:00)
[2018-01-01] MEDS ORDERED: HALOPERIDOL 5 MG TAB PO PRN (18:00)
[2018-01-01] MEDS ORDERED: HALOPERIDOL 1 MG TAB PO PRN (18:15)
[2018-01-01] MEDS ORDERED: METOPROLOL TARTRATE 25 MG TAB PO SCH (18:30)
[2018-01-01] MEDS: METOPROLOL TARTRATE 25 MG TAB PO SCH (18:30)
[2018-01-01 18:37] LABS: FERRITIN 239.4 ng/mL (21.81-274.66)
[2018-01-01 19:15] VITALS: BP 171/94
--- NOTE | 2018-01-01 19:57 | History and Physical ---
HISTORY OF PRESENT ILLNESS: This is an 82-year-old male with past medical history positive for chronic atrial fibrillation, history of diabetes, obesity, suprapubic tube placement due to the urinary retention, also history of colostomy. Patient came to the hospital mainly complaining of shortness of breath. He was diagnosed with acute congestive heart failure, although the chest x-ray was negative. Today, he is very confused and very agitated, pulling IV lines. He was found to have a urinary tract infection and also started on IV antibiotics. REVIEW OF SYSTEMS CARDIOVASCULAR: No chest pain or palpitations. RESPIRATORY: No shortness of breath or cough. GASTROINTESTINAL: No nausea, no vomiting, no diarrhea. GENITOURINARY: No frequency or dysuria. ALLERGIES: CODEINE. SOCIAL HISTORY: He does not smoke and does not drink. PAST MEDICAL HISTORY 1. History of CHF. 2. History of UTI. 3. History of chronic atrial fibrillation. 4. History of diabetes mellitus. PHYSICAL EXAMINATION: Blood pressure 140/84, temperature 95.4 degrees Fahrenheit, heart rate 100 per minute, respiratory rate 18 per minute. Oxygen saturation 99%. The chest x-ray showed no evidence of any congestive heart failure. On the BMP, sodium 139, potassium 4.4, chloride 104, CO2 23, BUN 19, creatinine 1.51. Glucose 183. On the CBC, white blood count 6.42, hemoglobin 9.4, hematocrit 30.0, platelet 137,000. PT 19.0, INR 1.73, PTT 42.2. AST 16, ALT 7, total bilirubin 1.0, alkaline phosphatase 145. BNP extremely high also. FINAL IMPRESSION 1. Acute encephalopathy, most likely secondary to urinary tract infection. 2. Shortness of breath, rule out congestive heart failure. 3. Urinary tract infection and prostatitis. 4. Oxrfs-iz-hxldpeq renal failure. 5. Chronic atrial fibrillation. 6. Acute anemia. 7. Diabetes mellitus, type 2, with diabetic nephropathy. PLAN OF TREATMENT: Continue furosemide 40 mg IV twice a day, Zofran IV 4 mg q.4 h., meropenem 1 g IV piggyback twice a day. We are going to resume the home medications. Monitor blood sugar a.c. and nightly. Dr. Donaldson has been consulted from the urology point of view. Also, we are going to get a cardiology consult with Dr. Leos for cardiology because of the elevated BNP. Also, echocardiogram has been ordered. We are going to give him Haldol 2 mg IV push every 4 hours as needed for agitation due to the extreme agitation the patient is having right now. We are going to order a urine culture to see what bacteria is growing in the urine. The case has been discussed with the nurse and with the family at the bedside. Time spent around 45 minutes. Job#: [id number]
--- NOTE | 2018-01-01 20:25 | History and Physical ---
ADDENDUM: On Geodon 20 mg IM q.12 h. as needed for agitation. Consult Dr. Stephenson for psychiatry, Dr. Leos for cardiology. Echocardiogram has been ordered also. We are going to do anemia workup including stool guaiac, , folic acid and . Job#: [id number] GH
[2018-01-01] MEDS ORDERED: MEROPENEM 1GRAM 1 GM in SODIUM CHLORIDE 0.9% 100 ML 100 ML IV SCH (21:00)
[2018-01-01] MEDS: FUROSEMIDE INJ 10 MG/ML 4 ML VIAL IV SCH (21:05)
[2018-01-01] MEDS ORDERED: INSULIN REGULAR, HUMAN 100 UNIT/1 ML 3ML VIAL ONE (21:59)
[2018-01-01 22:00] VITALS: BP 171/94
[2018-01-01] MEDS: INSULIN REGULAR, HUMAN 100 UNIT/1 ML 3ML VIAL SQ SCH (22:02)
[2018-01-02] VITALS (8 sets, daily range): BP systolic 111–154; BP diastolic 59–89
[2018-01-02] MEDS ORDERED: LEVOTHYROXINE SODIUM 75 MCG TAB PO SCH (06:00)
[2018-01-02 06:15] LABS: BASOPHILS % 0.4 % (0.0-1.0); HEMATOCRIT 29.6 % (38.2-49.6); HEMOGLOBIN 9.3 g/dL (14.0-18.0); LYMPHOCYTES # (AUTO) 0.5 (1.0-3.2); LYMPHOCYTES % 23.3 % (18.0-39.1); MEAN CORPUSCULAR HEMOGLOBIN 30.9 pg (28-32); MEAN CORPUSCULAR HGB CONC 31.4 g/dL (31-35); MEAN CORPUSCULAR VOLUME 98.3 fL (81-99); MONOCYTES # (AUTO) 0.1 (0.2-0.8); MONOCYTES % 4.9 % (4.4-11.3); NEUTROPHILS # (AUTO) 1.2 (2.1-6.9); NEUTROPHILS % 54.8 % (38.7-80.0); PLATELET COUNT 159 x10e3/uL (140-360); RED BLOOD COUNT 3.01 x10e6/uL (4.3-5.7); RED CELL DISTRIBUTION WIDTH 21.7 % (11.7-14.4)
--- NOTE | 2018-01-02 06:19 | Diagnostic Imaging Report ---
CHEST SINGLE (PORTABLE), 01/02/2018 7:00 AM Technique: CHEST SINGLE (PORTABLE) Comparison: Previous day Clinical history: Shortness of breath Findings: Limited by portable technique and body habitus. Impression: 1. Stable enlarged cardiomediastinal silhouette. 2. Central vascular congestion with persistent mild bibasilar opacity which may reflect atelectasis. Possible small effusions. Signed by: Dr Laura Pearson MD on 01/02/2018 6:16 AM
[2018-01-02 06:57] LABS: ANION GAP 16.4 mmol/L (8-16); CALCIUM 8.8 mg/dL (8.4-10.2); CREATININE, SERUM 1.79 mg/dL (0.72-1.25); POTASSIUM 4.4 mmol/L (3.5-5.1)
[2018-01-02 07:04] LABS: CREATINE KINASE MB 1.1 ng/mL (0-5.0)
[2018-01-02] MEDS: LEVOTHYROXINE SODIUM 100 MCG TAB PO SCH (07:15)
[2018-01-02] MEDS: INSULIN REGULAR, HUMAN 100 UNIT/1 ML 3ML VIAL SQ SCH ×4 (08:00→20:23)
[2018-01-02 08:13] LABS: BLAST CELLS % MANUAL 1; LYMPHOCYTES % (MANUAL) 30 % (19-48); METAMYELOCYTES % (MANUAL) 3 % (0-0); MONOCYTES % (MANUAL) 4 % (3.4-9.0); MYELOCYTES % (MANUAL) 3 % (0-0); NEUTROPHILS % (MANUAL) 57 % (40-74); NUCLEATED RED BLOOD CELLS 2
[2018-01-02 08:14] LABS: ANISOCYTOSIS MODERATE; HYPOCHROMASIA SLIGHT; PLATELET ESTIMATE ADEQUATE; PLATELET MORPHOLOGY COMMENT FEW GIANT; POIKILOCYTOSIS SLIGHT; RBC MORPHOLOGY COMMENT NORMAL
[2018-01-02] MEDS ORDERED: METOPROLOL TARTRATE 50 MG TAB PO SCH ×2 (09:00)
[2018-01-02] MEDS ORDERED: BUSPIRONE HCL 5 MG TAB PO SCH (09:00)
[2018-01-02] MEDS: FOLIC ACID 1 MG TAB PO SCH (09:38)
[2018-01-02] MEDS: FUROSEMIDE INJ 10 MG/ML 4 ML VIAL IV SCH (09:38)
[2018-01-02] MEDS: FERROUS SULFATE 325 MG TAB PO SCH (09:38)
[2018-01-02] MEDS: METOPROLOL TARTRATE 25 MG TAB PO SCH ×2 (09:39→16:44)
[2018-01-02] MEDS: PANTOPRAZOLE SOD 40 MG TABEC PO SCH (09:39)
[2018-01-02] MEDS: MEROPENEM 1 GM VIAL IV SCH ×2 (09:39→22:19)
[2018-01-02] MEDS: ALLOPURINOL 300 MG TAB PO SCH (09:39)
[2018-01-02] MEDS ORDERED: ONDANSETRON HCL 4 MG ORAL DISINTEGRATING TAB PO PRN (10:15)
--- NOTE | 2018-01-02 10:19 | Consultation ---
DATE OF CONSULTATION: January 02, 2018 REASON FOR CONSULTATION: CHF. 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 The patient was here recently with supratherapeutic INR. Was discharged apparently to a rehab facility. However, he comes back apparently with complaints of shortness of breath and presumed CHF exacerbation. Cardiology was consulted. Patient was seen in room very confused and unable to collaborate history. Apparently, chest x-ray was done showing some central congestion and BNP showing 639. Has been receiving Lasix therapy. Currently, seems in no acute distress and breathing comfortably. Of note, also was noted to be very confused and apparently pulling out his IVs. Was noted with a UTI and is on antibiotic therapy now. PAST MEDICAL HISTORY: Includes diabetes, peripheral neuropathy, chronic AFib, hypertension, hypothyroidism, history of osteomyelitis with right toe amputation, chronic venous insufficiency, chronic volume overload. Has a history of being on midodrine therapy. FAMILY HISTORY: Several family members with history of diabetes and coronary disease. SURGICAL HISTORY: Right toe amputation, suprapubic catheter. SOCIAL HISTORY: Apparently, he had been staying with his daughter. He is a nonsmoker and nonalcoholic. REVIEW OF SYSTEMS: Unable to obtain. Patient is confused. PHYSICAL EXAMINATION VITAL SIGNS: Height 70 inches, weight 235 pounds, current temperature is 97.8, pulse 94, respiratory 20, blood pressure 154/77, pulse ox 93% on 2 L nasal cannula. GENERAL: Unreliable historian. Very confused and morbidly obese. HEENT: Normocephalic. Pupils are equal and reactive. Extraocular motor intact. Trachea midline. Oral mucosa pink. No carotid bruits noted. No JVD. HEART: Irregular rate and rhythm. PMI about 4th to 5th intercostal space. LUNGS: Crackles throughout. ABDOMEN: Soft and nontender. Suprapubic catheter noted. MUSCULOSKELETAL: Moves all extremities. Generalized weakness. VASCULAR: Plus 2 radial pulses and +1 PT pulses. Lower extremities noted with chronic venous changes, +2-3 edema. Right toe amputation. NEUROLOGIC: Cranial nerves II-XII seem intact. However, the patient confused to place and situation. LABS: White count 6, hemoglobin 11.4, hematocrit 30, and platelets 137,000. Sodium 142, potassium 4.4, chloride 104, BUN 28, creatinine 1.7, glucose 232. BNP is 639. Urine showing +1 leukocyte esterase. Urine wbcs greater than 50. Chest x-ray showing essential vascular congestion with bilateral bibasilar opacities. ASSESSMENT AND PLAN 1. Sgxen-sa-uhihkma systolic heart failure. 2. Encephalopathy. 3. Urinary tract infection. 4. Chronic atrial fibrillation. 5. Lbshl-iy-upewdic kidney disease. 6. Chronic venous insufficiency. PLAN: Patient presents apparently with complaints of shortness of breath. Has been receiving Lasix and currently seems comfortable. However, was very confused. UA is showing positive white count and leukocyte esterase is being treated for her UTI now. Will continue Lasix therapy. Will add low-dose beta yojana therapy. Antibiotic as per primary service. Most recent echo November 21, 2017, showing EF about 38%. Continue Eliquis half dose at 2.5 mg twice a day. Tele monitoring. Will continue to follow the patient and adjust cardiac therapy as course dictates. Thank you very much for this consult. DICTATED BY HEATHER ENRIQUE NP Seen and examined Supportive care Conservative approach Job#: [id number] GRETTA QUEZADA
[2018-01-02] MEDS ORDERED: LORAZEPAM INJ 2 MG/ML VIAL IM PRN (15:30)
[2018-01-02] MEDS ORDERED: LORAZEPAM 0.5 MG TAB PO PRN (15:30)
[2018-01-02] MEDS ORDERED: OLANZAPINE 5 MG TAB PO PRN (15:30)
[2018-01-02] MEDS ORDERED: QUETIAPINE FUMARATE 25 MG TAB PO PRN (15:30)
[2018-01-02] MEDS ORDERED: HALOPERIDOL LACTATE 5 MG/ML VIAL IM PRN (15:30)
[2018-01-02] MEDS: APIXAB 2.5 MG TABLET PO SCH (16:44)
--- NOTE | 2018-01-02 17:24 | Consultation ---
DATE OF CONSULTATION: January 02, 2018 PSYCHIATRIC CONSULTATION REASON FOR CONSULTATION: Evaluate patient's agitation. HISTORY OF PRESENTING ILLNESS: The patient is an 82-year-old man admitted to the hospital after acute dyspnea, indwelling catheter associated UTI. Psychiatric consultation is called to evaluate patient's psychosis and dementia. As per medical record patient has chronic history of AFib, history of diabetes, obesity, urinary retention, history of colostomy. He was taken to hospital for the above reasons of acute dyspnea and UTI. While hospitalized he was confused, very agitated and pulled out IV lines. On evaluation today patient is found to be lying in the bed. Multiple staff members are surrounding him. He is alert, awake and oriented to himself but he is very confused. He does not know where he is or the current year. He keeps trying to get out of bed. He is not redirectable. He is yelling, screaming. He denies any depression. He denies anxiety. He denies hallucinations. He is unable to answer questions appropriately and is very fixated on getting out of bed. He has been getting Haldol p.r.n. p.r. medication. As per nursing staff, patient has been very restless and agitated. He is not redirectable. PAST PSYCHIATRIC HISTORY: Patient does not have any past psychiatric history. He has never attempted suicide in the past. He denies any alcohol or drug use. FAMILY HISTORY: Unremarkable. SOCIAL HISTORY: Patient states he lives with his daughter. MENTAL STATUS EXAMINATION: The patient is an elderly, obese, white male. He is alert, awake and oriented to self. He is very confused. Psychomotor state is agitated. Mood is anxious. Affect is congruent with mood. Denies any hallucination. Denies any suicidal ideation. Memory appears to be grossly impaired. Insight and judgment are limited to impaired. CURRENT MEDICATIONS 1. Insulin. 2. Metoprolol . 3. Allopurinol. 4. . 5. Folic acid. 6. Ferrous sulfate. 7. Furosemide. 8. Levothyroxine. 9. . 10. Eliquis. 11. BuSpar 7.5 mg p.o. b.i.d. 12. Haldol 2 mg p.o. p.r.n. 13. Geodon 20 mg. 14. Iron q. 12 hours p.r.n. CURRENT LAB: WBC 2.23, RBC 3.01, hemoglobin , hematocrit 29.6, sodium 142, potassium 4.4, chloride 104. CO2 26, BUN 28, creatinine 1.79. ASSESSMENT: Unspecified psychosis/delirium dementia. PLAN 1. To add Zyprexa 2.5 mg p.o. q. 6 hours p.r.n. 2. Add Ativan 0.5 mg p.o. q.6 hours p.r.n. 3. Add Ativan 0.5 mg IM q.6 hours p.r.n. 4. Add Haldol 2 mg IM q.6 hours p.r.n. 5. Discontinue BuSpar. 6. Discontinue Geodon. 7. Discontinue Haldol p.r.n. p.o. 8. Monitor for agitation. Thank you for this consultation. Dictated by: RONI Staples Job#: [id number] CECILIA
--- NOTE | 2018-01-02 18:21 | Progress Note ---
DATE: January 02, 2018 INTERNAL MEDICINE PROGRESS NOTE SUBJECTIVE: He is less confused today. He is still with some mild confusion. Not as agitated as he was yesterday. PHYSICAL EXAM: VITAL SIGNS: Blood pressure 130/59, temperature 97.8, heart rate 89 per minute, respiratory rate 20 per minute. Oxygen saturation 100%. HEART: Regular rhythm. No murmur. No extra sounds. LUNGS: Clear bilaterally. ABDOMEN: Soft. EXTREMITIES: Show bruises on upper and lower extremities. LABORATORY DATA: On the BMP sodium 142, potassium 4.4, chloride 104, CO2 26, BUN 28, creatinine 1.79. Glucose 232. CBC showed white blood count 2.23, hemoglobin 9.3, hematocrit 29.6, platelet count 159,000. PT 19.0. INR 1.73. PTT 42.2. AST 16. ALT 7. Total bilirubin 1.0, alkaline phosphatase 145. FINAL IMPRESSION: 1. Urinary tract infection, prostatitis. 2. Acute encephalopathy which is slowly resolving. 3. Shortness of breath which is completely resolved. 4. Qwxcw-fk-tyzhjtq renal failure. 5. Chronic atrial fibrillation. 6. Acute anemia. 7. Diabetes mellitus type 2 with diabetic nephropathy. PLAN OF TREATMENT: Going to continue with meropenem 1 gram IV twice a day. Continue allopurinol 300 mg daily. Ferrous sulfate 325 mg daily. Metoprolol 12.5 mg twice a day. Zofran 4 mg IV q.4 h. as needed. Magnesium oxide 400 mg twice a day because of borderline low normal magnesium. Continue folic acid 1 mg daily. Continue monitoring blood sugar a.c. and nightly. Haldol 2 mg IV q.6 h. as needed. Lorazepam 0.5 mg q.6 h. as needed. Protonix 40 mg daily. Levothyroxine 100 mcg daily. Eliquis 2.5 mg twice a day and Zyprexa 2.5 mg q.6 hour. We are going to continue with physical and occupational therapy. Urine culture is showing some evidence of gram positive cocci. We are waiting for the final report. Job#: [id number]
[2018-01-03] VITALS (8 sets, daily range): BP systolic 116–151; BP diastolic 62–97
[2018-01-03] MEDS: LEVOTHYROXINE SODIUM 100 MCG TAB PO SCH (05:17)
[2018-01-03 06:53] LABS: ANION GAP 15.2 mmol/L (8-16); CALCIUM 8.8 mg/dL (8.4-10.2); CREATININE, SERUM 1.94 mg/dL (0.72-1.25); POTASSIUM 4.2 mmol/L (3.5-5.1)
[2018-01-03] MEDS: INSULIN REGULAR, HUMAN 100 UNIT/1 ML 3ML VIAL SQ SCH ×4 (07:30→21:00)
[2018-01-03] MEDS: GLIMEPIRIDE 2 MG TAB PO SCH (08:00)
[2018-01-03] MEDS ORDERED: QUETIAPINE FUMARATE 25 MG TAB PO PRN (09:00)
[2018-01-03] MEDS: APIXAB 2.5 MG TABLET PO SCH ×2 (09:00→17:00)
[2018-01-03] MEDS: PANTOPRAZOLE SOD 40 MG TABEC PO SCH (09:00)
[2018-01-03] MEDS: FOLIC ACID 1 MG TAB PO SCH (09:00)
[2018-01-03] MEDS: ALLOPURINOL 300 MG TAB PO SCH (09:00)
[2018-01-03] MEDS: MAGNESIUM OXIDE 400 MG TAB PO SCH ×2 (09:00→17:00)
[2018-01-03] MEDS: FERROUS SULFATE 325 MG TAB PO SCH (09:00)
[2018-01-03] MEDS: MEROPENEM 1 GM VIAL IV SCH ×2 (10:19→22:19)
[2018-01-03] MEDS ORDERED: VANCOMYCIN 1GM/NS 250 ML 250 ML IV SCH (10:30)
--- NOTE | 2018-01-03 16:30 | Progress Note ---
DATE: January 03, 2018 INTERNAL MEDICINE PROGRESS NOTE SUBJECTIVE: Patient is sleeping right now. PHYSICAL EXAMINATION VITAL SIGNS: Blood pressure 140/95, temperature 96.7, heart rate 100 per minute, respiratory rate 20 per minute, oxygen saturation 100%. HEART: Showed regularly irregular heart rate. LUNGS: Clear bilaterally. ABDOMEN: Soft. EXTREMITIES: Has open wounds on both legs. Urine culture showed MRSA. BMP showed sodium 142, potassium 4.2, chloride 104, CO2 27, BUN 44, creatinine 1.94, glucose 270. CBC white blood count 2.23, hemoglobin 9.3, hematocrit 29.6, platelet count 159,000. PT 19.0, PTT 42.2, INR 1.73. AST 16, ALT 7. Total bilirubin 1.0, alkaline phosphatase 145. FINAL IMPRESSION 1. Acute encephalopathy. 2. Urinary tract infection with Methicillin-resistant Staphylococcus aureus. 3. Ynxlj-ye-bnmpcfu renal insufficiency. 4. Status post suprapubic catheter. 5. Anemia of chronic disease. 6. Pancytopenia. 7. Chronic atrial fibrillation. 8. Chronic systolic and diastolic congestive heart failure. PLAN OF TREATMENT: Continue vancomycin 1 gram IV piggyback once a day. Meropenem 1 gram IV piggyback twice a day. Allopurinol 300 mg daily. Levothyroxine 100 mcg daily. Eliquis 2.5 mg twice a day. Magnesium oxide 400 mg twice a day. Ferrous sulfate 325 mg daily. Metoprolol 12.5 mg twice a day. Zofran 4 mg IV q.4 hours as needed. Glimepiride 2 mg daily. Folic acid 1 mg daily. Monitor blood sugar a.c. and nightly. Haldol 2 mg IV q.6 hours as needed for agitation. Seroquel 25 mg q.6 hours as needed for agitation p.o. Protonix 40 mg daily. Lorazepam 0.5 mg q.6 hours as needed for agitation p.o. or a.m. Patient is going to be referred to [facility] for continuation of IV antibiotic. He is on contact isolation because of MRSA in the urine. He also has encephalopathy. Physical and occupational therapy are going to be required. Job#: [id number]
[2018-01-03] MEDS: LINEZOLID 600 MG/D5W 300ML 300 ML IV SCH (16:34)
--- NOTE | 2018-01-03 17:29 | Progress Note ---
DATE: January 03, 2018 PSYCHIATRIC PROGRESS NOTE Patient evaluated and events noted. Patient is found to be lying on the bed. He is alert, awake and seems to be a little bit drowsy. He is somewhat confused. Oriented to self only but not restless or agitated. He is unable to answer questions appropriately. I spoke to the nursing staff who report that patient was very agitated last night. He got Ativan IV at 5 a.m. and then he went to sleep. When he woke up he got agitated again, trying to pull out IV lines and he was agitated during care. ASSESSMENT: Unspecified psychosis dementia with behavioral disturbances. PLAN 1. Add Seroquel 25 mg p.o. nightly 2. Continue Seroquel p.r.n. p.o. 3. Reduce Haldol from 2 mg IM q.6 hours p.r.n. to 1 mg IM q.6 hours p.r.n. 4. Continue Ativan p.r.n. p.o. and Ativan p.r.n. IM. 5. Monitor for agitation. Dictated by: RONI Staples Job#: [id number]
[2018-01-03] MEDS: QUETIAPINE FUMARATE 25 MG TAB PO SCH (21:00)
[2018-01-04] VITALS: BP 149/88
[2018-01-04] MEDS: LINEZOLID 600 MG/D5W 300ML 300 ML IV SCH (03:58)
[2018-01-04 04:00] VITALS: BP 151/60
[2018-01-04] MEDS: LEVOTHYROXINE SODIUM 100 MCG TAB PO SCH (05:04)
[2018-01-04 06:56] LABS: ALBUMIN 2.6 g/dL (3.5-5.0); ANION GAP 12.9 mmol/L (8-16); CALCIUM 8.4 mg/dL (8.4-10.2); CREATININE, SERUM 1.8 mg/dL (0.72-1.25); POTASSIUM 3.9 mmol/L (3.5-5.1)
[2018-01-04 07:56] VITALS: BP 132/74
[2018-01-04] MEDS: INSULIN REGULAR, HUMAN 100 UNIT/1 ML 3ML VIAL SQ SCH ×5 (08:30→21:00)
[2018-01-04] MEDS: FOLIC ACID 1 MG TAB PO SCH (09:40)
[2018-01-04] MEDS: MAGNESIUM OXIDE 400 MG TAB PO SCH ×2 (09:40→17:28)
[2018-01-04] MEDS: APIXAB 2.5 MG TABLET PO SCH ×2 (09:40→17:28)
[2018-01-04] MEDS: FERROUS SULFATE 325 MG TAB PO SCH (09:40)
[2018-01-04] MEDS: PANTOPRAZOLE SOD 40 MG TABEC PO SCH (09:40)
[2018-01-04] MEDS: GLIMEPIRIDE 2 MG TAB PO SCH (09:40)
[2018-01-04] MEDS: MEROPENEM 1 GM VIAL IV SCH (09:40)
[2018-01-04] MEDS: ALLOPURINOL 300 MG TAB PO SCH (09:40)
[2018-01-04] MEDS: HALOPERIDOL LACTATE 5 MG/ML VIAL IM PRN (10:38)
[2018-01-04 11:55] VITALS: BP 133/69
--- NOTE | 2018-01-04 14:40 | Consultation ---
DATE OF CONSULTATION: REASON FOR CONSULTATION: Concern about UTI. This patient who is an 82-year-old white male who has a history of atrial fibrillation, history of diabetes mellitus, chronic kidney disease, venous insufficiency, obesity, right toe osteomyelitis, right toe amputation, peripheral neuropathy, hypertension, hypothyroidism. He has been having a problem with prostate. Apparently, has a chronic Perez catheter, which was changed a month ago to a suprapubic catheter by Dr. Sandro Donaldson. The patient is presenting with a 1-day history of altered mental status. No fever. No chills. Patient was admitted here and was seen by psychiatry. Infectious disease was consulted because he has MRSA in the urine. The patient is currently laying in bed comfortably. Apparently, he has been confused. He pulled his IVs. He is refusing to take IVs. The daughter at the bedside thinks this is new to her father. The patient has a history of diabetes mellitus, neuropathy, chronic AFib, hypertension, hypothyroidism, osteomyelitis of the right toe, status post amputation, chronic venous insufficiency, chronic volume overload, obesity. PAST SURGICAL HISTORY: Suprapubic catheter and right toe amputation. ALLERGIES: NKA. SOCIAL HISTORY: There is no smoking, drug abuse or alcohol abuse. Lives with family. FAMILY HISTORY: Noncontributory. REVIEW OF SYSTEMS HEENT: There is no headache or visual changes or hearing changes. GI: There is no nausea. No vomiting. No diarrhea. CARDIAC: There is no arrhythmia. No seizure activity. There is no fever or chills. The patient originally was admitted and started on vancomycin and meropenem. He also has been on allopurinol, levothyroxine, Eliquis, magnesium oxide, iron sulfate. LABORATORY DATA: Reviewed. White count is 6.42 and today is 2.23, hemoglobin 9.3 and platelets of 159,000. Sodium 143, potassium 3.9, creatinine 1.8. His urine is showing MRSA. PHYSICAL EXAMINATION GENERAL: He is found to be alert and confused. VITALS: Stable. There is no fever since admission. HEENT: Normocephalic. Not icteric. NECK: Supple. CHEST: Clear. CORE: S1 and S2. No murmur. ABDOMEN: Soft and obese. IMPRESSION 1. Altered mental status: I am not sure if it is due to infection. Agree with Zyvox 50 mg p.o. b.i.d. Discontinue meropenem. Discontinue vancomycin. Obtain blood cultures. Recheck CBC. Recheck Chem panel. 2. Former leukopenia: Could be from medications. 3. Altered mental status: Psychiatry is following. Consider also neuro evaluation. 4. Other medical problems as above: Will follow with you. 5. Obesity. 6. Congestive heart failure. 7. Atrial fibrillation. 8. Chronic anemia. 9. Diabetes mellitus. 10. Chronic kidney disease: Will follow. Job#: [id number] [place]
[2018-01-04 15:47] VITALS: BP 132/67
[2018-01-04] MEDS: SODIUM CHLORIDE 0.9% 1000ML 1,000 ML IV SCH ×2 (16:15→21:45)
[2018-01-04] MEDS: RISPERIDONE 0.5 MG TAB PO SCH (17:28)
[2018-01-04] MEDS: LINEZOLID 600 MG TAB PO SCH (17:28)
--- NOTE | 2018-01-04 17:55 | Progress Note ---
DATE: INTERNAL MEDICINE PROGRESS NOTE SUBJECTIVE: Patient is extremely confused, argumentative, hallucinating, seeing people in the room. OBJECTIVE VITAL SIGNS: Blood pressure 133/69, temperature 97.3, heart rate 101 per minute, respiratory rate is 20 per minute, oxygen saturation 95%. HEART: Showed regularly irregular heart rate. Normal S1 and S2 sounds. LUNGS: Clear bilaterally. ABDOMEN: Soft. EXTREMITIES: Show open wound on the left leg. LABORATORY DATA: On the blood work, BMP showed sodium 143, potassium 3.9, chloride 104, CO2 of 30, BUN 44, creatinine 1.80, glucose 172. On the CBC, white blood count 2.23, hemoglobin 9.3, hematocrit 29.6, platelet count 159,000. PT 19.0, INR 1.73, PTT 42.2. AST 14, ALT 7, total bilirubin 0.4, alkaline phosphatase 96. FINAL IMPRESSION 1. Urinary tract infection and prostatitis. 2. Acute encephalopathy, which is still present. 3. Change in mental status with a lot of confusion. 4. Bvkun-sx-sgrvypx renal failure. 5. Chronic atrial fibrillation. 6. Acute anemia. 7. Diabetes mellitus type 2 with diabetic nephropathy. PLAN OF TREATMENT: We are going to continue Zyvox 600 mg p.o. twice a day, which we have changed from IV because the patient pulled out the IV lines. He is extremely confused. We are going to start him on Risperdal 0.25 mg twice a day, Haldol 1 mg q.6 a.m. as needed for confusion, Protonix 40 mg daily, Eliquis 2.5 mg twice a day, glimepiride 2 mg daily, lorazepam 0.5 mg q.6 hours as needed, levothyroxine 100 mcg daily, Zofran 4 mg IV q.4 hours as needed, Seroquel 25 mg at bedtime. Continue monitoring blood sugar a.c. and nightly. I discussed the case with the nurse and with family at the bedside. Job#: [id number] VAS
[2018-01-04 20:00] VITALS: BP_SYST 143; BP_SYST 164; BP_DIAS 82; BP_DIAS 84
[2018-01-04] MEDS: QUETIAPINE FUMARATE 25 MG TAB PO SCH (21:00)
[2018-01-04] MEDS ORDERED: LACTULOSE SYRUP 20 GM/30 ML UDC PO PRN (22:45)
[2018-01-04] MEDS: TRAMADOL HCL 50 MG TAB PO PRN (23:45)
[2018-01-05] VITALS (9 sets, daily range): BP systolic 118–142; BP diastolic 60–84
[2018-01-05] MEDS: TRAMADOL HCL 50 MG TAB PO PRN (05:09)
[2018-01-05] MEDS: LEVOTHYROXINE SODIUM 100 MCG TAB PO SCH (05:09)
[2018-01-05 07:04] LABS: ANION GAP 12.7 mmol/L (8-16); CALCIUM 8.6 mg/dL (8.4-10.2); CREATININE, SERUM 1.41 mg/dL (0.72-1.25); POTASSIUM 3.7 mmol/L (3.5-5.1)
[2018-01-05] MEDS: INSULIN REGULAR, HUMAN 100 UNIT/1 ML 3ML VIAL SQ SCH ×4 (07:30→20:53)
[2018-01-05] MEDS: GLIMEPIRIDE 2 MG TAB PO SCH (08:00)
[2018-01-05] MEDS: MAGNESIUM OXIDE 400 MG TAB PO SCH ×2 (09:00→16:46)
[2018-01-05] MEDS: POLYETHYLENE GLYCOL 3350 17 GM PACK PO SCH (09:00)
[2018-01-05] MEDS: PANTOPRAZOLE SOD 40 MG TABEC PO SCH (09:00)
[2018-01-05] MEDS: FOLIC ACID 1 MG TAB PO SCH (09:00)
[2018-01-05] MEDS: LINEZOLID 600 MG TAB PO SCH ×2 (09:00→16:46)
[2018-01-05] MEDS: FERROUS SULFATE 325 MG TAB PO SCH (09:00)
[2018-01-05] MEDS: RISPERIDONE 0.5 MG TAB PO SCH ×2 (09:00→16:46)
[2018-01-05] MEDS: ALLOPURINOL 300 MG TAB PO SCH (09:00)
[2018-01-05] MEDS: APIXAB 2.5 MG TABLET PO SCH ×2 (09:00→16:46)
[2018-01-05] MEDS ORDERED: POTASSIUM CHLORIDE 20 MEQ TAB CR PO ONE (11:00)
--- NOTE | 2018-01-05 11:39 | Diagnostic Imaging Report ---
Examination: CT head without contrast Clinical Indication: Confusion. Altered mental status. Stroke. Encephalopathy. Technique: Transaxial noncontrast images from the skull base through the vertex were obtained. Sagittal and coronal reformatted images were done. Comparison: Head CT performed December 30, 2017 Findings: Scalp: No abnormalities. Bones: Intact. No fractures. No blastic or lytic lesions. Brain sulci: Mild volume loss for patient's age. Ventricles: No hydrocephalus. Extra-axial space: No abnormalities. Parenchyma: There are mild confluent areas of low-attenuation within subcortical and periventricular white matter, nonspecific, but could represent microvascular ischemic disease. No masses, hemorrhage, or acute or chronic cortical based vascular insults. Suprasellar region: No abnormalities. Craniocervical junction: The foramen magnum is patent. No Chiari one malformation. Incidental findings: Atherosclerotic calcification of the cavernous and supraclinoid internal carotid arteries. Impression: 1. No new or acute intracranial finding. No change from prior head CT performed December 30, 2017 2. Mild chronic microvascular ischemic change and mild volume loss. Signed by: Dr. Tala Ibarra M.D. on 01/05/2018 11:35 AM
--- NOTE | 2018-01-05 15:37 | Progress Note ---
DATE: INTERNAL MEDICINE PROGRESS NOTE The patient is sleepy. Not as much as he was yesterday. PHYSICAL EXAMINATION VITALS: Blood pressure 142/84, temperature 97 degrees, heart rate 108 per minute, respiratory rate is 20 per minute, oxygen saturation 98%. HEART: Shows regular rhythm. Normal S1 and S2 sounds. LUNGS: Clear bilaterally. ABDOMEN: Soft. EXTREMITIES: Show no evidence of cyanosis, edema or trauma. BLOOD WORK: We have BMP with sodium of 145, potassium 3.7, chloride 105, CO2 31, BUN 39, creatinine 1.41, glucose 101. On the CBC, white blood count 2.23, hemoglobin 9.3, hematocrit 39.6, platelet count 159,000. PT 19, INR 1.73 and PTT 42.2. AST 14, ALT 7, total bilirubin 0.4, alkaline phosphatase 96. FINAL IMPRESSION 1. Urinary tract infection prostatitis with methicillin-resistant Staphylococcus aureus. 2. Confusion with agitation. 3. Dhiie-hf-sarotrr systolic and diastolic congestive heart failure. 4. Chronic atrial fibrillation. 5. Acute encephalopathy. 6. Anemia of chronic disease. PLAN OF TREATMENT: Continue allopurinol 300 mg daily. Ferrous sulfate 325 mg daily. Folic acid 1 mg daily. Magnesium oxide 400 mg twice a day. Haldol 1 mg IV or IM q.6 h. as needed for agitation. Continue Protonix 40 mg daily. Continue Eliquis 2.5 mg twice a day. Glimepiride 2 mg daily. Zyvox 600 mg p.o. twice a day for MRSA in the urine. Tramadol 50 mg q.4 h. as needed. Levothyroxine 100 mcg daily. Zofran 4 mg IV q.4 h. as needed. Seroquel 25 mg q.6 h. Risperdal 0.25 mg twice a day. Furosemide 80 mg twice a day. P.o. lorazepam 0.5 mg IM q.6 h. as needed. Seroquel 25 mg at bedtime. 20 g q.4 h. Lorazepam 0.5 mg q.6 h. as needed. Job#: [id number] [place]
[2018-01-05] MEDS: FUROSEMIDE INJ 10 MG/ML 4 ML VIAL IV SCH (20:53)
[2018-01-05] MEDS: QUETIAPINE FUMARATE 25 MG TAB PO SCH (20:53)
--- NOTE | 2018-01-06 02:05 | Consultation ---
DATE OF CONSULTATION: January 05, 2018 NEUROLOGY CONSULT NOTE HISTORY OF PRESENT ILLNESS: Mr. Sanches is an 82-year-old man with past medical history significant for hypertension, diabetes mellitus type 2, systolic congestive heart failure, chronic kidney disease stage 3, and urinary retention with multiple urinary tract infections, who presented to the emergency center at [facility] on January 01, 2018 with shortness of breath. After undergoing an evaluation in the emergency center, the patient was found to have an exacerbation of his underlying congestive heart failure as well as a urinary tract infection. He was admitted to [facility] for further evaluation and treatment. Throughout his hospitalization, the patient has been intermittently confused and agitated/combative. He has repeatedly removed his intravenous lines. The medical staff reports the patient has appeared to have visual hallucinations as well. The neurology service is consulted for agitation and confusion. REVIEW OF SYSTEMS: Mr. Sanches reports generalized weakness and pain in the left foot. Otherwise, the 12-point review of systems is negative. PAST MEDICAL HISTORY: Hypertension, diabetes mellitus, systolic congestive heart failure, atrial fibrillation, thyroid disease, chronic kidney disease stage 3, urinary retention, multiple urinary tract infections, obesity, anemia of chronic disease, peripheral vascular disease, and osteomyelitis. PAST SURGICAL HISTORY: Right great toe amputation, suprapubic catheter placement, colostomy, cataract surgery. FAMILY HISTORY: Diabetes mellitus and coronary artery disease. SOCIAL HISTORY: The patient is . He lives with his daughter. Mr. Sanches is retired. There is no reported tobacco, alcohol, or recreational drug use. HOME MEDICATIONS: 1. Allopurinol 300 mg by mouth daily. 2. Buspirone 7.5 mg by mouth twice daily. 3. Ferrous sulfate 325 mg by mouth daily. 4. Folic acid 1 mg by mouth daily. 5. Levemir 18 units subcutaneously before meals, Levemir 20 units subcutaneously at bedtime. 6. Humalog 4 units subcutaneously before meals and at bedtime. 7. Levothyroxine 100 mcg by mouth daily. 8. Metoprolol tartrate 12.5 mg by mouth twice daily. 9. Protonix 40 mg by mouth daily. 10. Antara 90 mg by mouth daily. 11. Eliquis 2.5 mg by mouth twice daily. ALLERGIES: CODEINE. NO KNOWN FOOD ALLERGIES. NO KNOWN ALLERGIES TO LATEX. NO KNOWN ALLERGIES TO IODINE OR OTHER CONTRAST MATERIALS. PHYSICAL EXAMINATION: VITAL SIGNS: Height 70 inches, weight 252.5 pounds, BMI 33.4 kg/sq m. Blood pressure 118/82 mmHg, pulse 91 beats per minute, respiratory rate 20 breaths per minute, oxygen saturation 98% on room air. GENERAL: The patient is awake and alert, does not appear distressed. Obese. HEENT: Normocephalic, atraumatic. Pupils are surgical. Moist mucous membranes. NECK: Supple. No appreciable thyromegaly. No appreciable carotid bruits. CARDIOVASCULAR: S1, S2, regular rate, irregular rhythm. No murmurs, rubs, or gallops. RESPIRATORY: Clear to auscultation bilaterally. No wheezes, rhonchi, or rales. EXTREMITIES: The skin is warm and dry. No clubbing, cyanosis, or edema. The posterior tibial and dorsalis pedis pulses are trace and symmetric. Right great toe amputation. SKIN: Venostasis ulcerations over the forelegs. Abrasions over the forearms and forelegs bilaterally. NEUROLOGIC EXAMINATION: MEMORY/ATTENTION: The patient is awake and alert, oriented to person and place (hospital, state). The patient is not oriented to time or situation. Mild to moderate memory impairment is present. CRANIAL NERVES: Cranial nerve I - not tested. Cranial nerves II, III, IV, and - Pupils are surgical, extraocular movements intact, no nystagmus. Cranial nerve V - Sensation to light touch is intact in the bilateral V1 through V3 distributions. Strength of the temporalis and masseter muscles is within normal limits. Cranial nerve VII - The face is symmetric, as are all facial movements. Strength is within normal limits. Cranial nerve VIII - Hearing is diminished to finger rub bilaterally. Cranial nerve IX, X - The soft palate elevates equally and symmetrically. Cranial nerve XI - Normal strength of the bilateral sternocleidomastoid and trapezius muscles. Cranial nerve XII - The tongue protrudes midline and moves symmetrically from side to side. STRENGTH: Moves all extremities spontaneously. Lifts both arms and both legs against gravity briefly (less than 5 seconds each). Strength is approximately 3/5 throughout. DTRs: Deep tendon reflexes are 1+ and symmetric at the triceps, biceps, and brachioradialis. Deep tendon reflexes are absent and symmetric at the patellas and Achilles. Plantar responses are mute bilaterally. Absent clonus. SENSATION: Sensation is intact to light touch in both arms and both legs. GAIT: Deferred. SPEECH: Spontaneous speech is mildly dysarthric without appreciable aphasia. Repetition is intact. INVOLUNTARY MOVEMENTS: None. PRONATOR DRIFT: As per motor exam. LABORATORY DATA: Sodium 145, potassium 3.7, chloride 105, carbon dioxide 31, anion gap 12.7, BUN 39, creatinine 1.41, estimated GFR 48, BUN to creatinine ratio 28, glucose 101, calcium 8.6. Fingerstick blood glucoses have ranged from 93 to 250 over the past 24 hours. A CBC with differential and platelets performed on January 02, 2018 revealed a white blood cell count of 2.23 with 54.8% neutrophils, 23.3% lymphocytes, 4.9% monocytes, 0.0% eosinophils, and 0.4% basophils. The hemoglobin and hematocrit were 9.3 and 29.6, respectively. The platelet count was 159,000. A urinalysis from January 01, 2018 revealed 2+ protein, 4+ blood, positive nitrites, 1+ leukocyte esterase, 21 to 50 red blood cells, greater than 50 white blood cells, and many bacteria. A urine culture from January 01, 2018 grew methicillin-resistant Staphylococcus aureus. DIAGNOSTIC STUDIES: 1. Chest x-ray, January 01, 2018: No acute radiographic abnormality. 2. Chest x-ray, January 02, 2018: Stable enlarged cardiomediastinal silhouette. Central vascular congestion with persistent mild bibasilar opacity which may reflect atelectasis. Possible small effusions. 3. EKG, January 01, 2018: Atrial fibrillation. 4. Echocardiogram: Left ventricular systolic function is diminished with an estimated ejection fraction of approximately 38%. All cardiac chambers are enlarged. Left ventricular hypertrophy. No significant valvular abnormalities. ASSESSMENT AND PLAN: Mr. Sanches is an 82-year-old man with an extensive past medical history as detailed above, admitted to [facility] on January 01, 2018 with an acute exacerbation of underlying congestive heart failure and a urinary tract infection. Throughout his hospitalization, the patient has intermittently appeared confused and agitated/combative. The patient has appeared to have visual hallucinations as well. On neurological examination, the patient is encephalopathic. However, there do not appear to be any focal neurological deficits. The patient's laboratory data and diagnostic studies have been reviewed and are documented above. Mr. Sanches has a metabolic encephalopathy. Factors resulting in encephalopathy include: Probable underlying dementia, likely vascular; urinary tract infection; and delirium. RECOMMENDATIONS: As follows: 1. Continue antibiotics for urinary tract infection. Utilize environmental cues to combat delirium. For example, lights and television should be turned on during the day. Lights and television should be turned off at night. Write the date, day of the week, month, and year on the dry erase board in the patient's room to assist with orientation. Mr. Sanches was evaluated by a psychiatrist on January 02, 2018. Adjustments were made to his psychotropic medications. Mr. Sanches does not appear agitated during this encounter, which indicates he is responding well to the current psychotropic medications. No adjustments will be made at this time. 2. Blood work will be ordered to evaluate for other possible causes of confusion and cognitive impairment in the elderly. 3. A CT of the brain without contrast will be ordered to evaluate for stroke, hemorrhage, or other acute pathology contributing to the patient's current symptoms. 4. Defer treatment of the remaining medical comorbidities to the primary and other services. Thank you for this consultation. I will continue to follow this patient while he remains in the hospital. Time spent 70 minutes. Job#: [id number] DR QUEZADA
[2018-01-06 04:15] VITALS: BP 103/56
[2018-01-06 06:13] LABS: BASOPHILS % 0.4 % (0.0-1.0); EOSINOPHILS # (AUTO) 0.1 (0.0-0.4); HEMATOCRIT 32.2 % (38.2-49.6); LYMPHOCYTES # (AUTO) 1.1 (1.0-3.2); LYMPHOCYTES % 13.9 % (18.0-39.1); MEAN CORPUSCULAR HEMOGLOBIN 30.9 pg (28-32); MEAN CORPUSCULAR HGB CONC 31.1 g/dL (31-35); MEAN CORPUSCULAR VOLUME 99.4 fL (81-99); MONOCYTES # (AUTO) 1.6 (0.2-0.8); MONOCYTES % 18.9 % (4.4-11.3); NEUTROPHILS # (AUTO) 4.8 (2.1-6.9); PLATELET COUNT 126 x10e3/uL (140-360); RED BLOOD COUNT 3.24 x10e6/uL (4.3-5.7); RED CELL DISTRIBUTION WIDTH 21.2 % (11.7-14.4)
[2018-01-06] MEDS: LEVOTHYROXINE SODIUM 100 MCG TAB PO SCH (06:39)
[2018-01-06 07:02] LABS: ALBUMIN 2.7 g/dL (3.5-5.0); ALBUMIN/GLOBULIN RATIO 1.2 (0.8-2.0); CALCIUM 8.4 mg/dL (8.4-10.2); CREATININE, SERUM 1.18 mg/dL (0.72-1.25)
[2018-01-06] MEDS: INSULIN REGULAR, HUMAN 100 UNIT/1 ML 3ML VIAL SQ SCH ×4 (07:30→21:00)
[2018-01-06 07:32] LABS: BLAST CELLS % MANUAL 2; HYPOCHROMASIA SLIGHT; LYMPHOCYTES % (MANUAL) 17 % (19-48); METAMYELOCYTES % (MANUAL) 3 % (0-0); MONOCYTES % (MANUAL) 12 % (3.4-9.0); NEUTROPHILS % (MANUAL) 63 % (40-74)
[2018-01-06 07:33] LABS: ANISOCYTOSIS SLIGHT; PLATELET ESTIMATE SLIGHTLY DECREASED; PLATELET MORPHOLOGY COMMENT NORMAL; RBC MORPHOLOGY COMMENT NORMAL
[2018-01-06 08:00] VITALS: BP 118/84
[2018-01-06] MEDS: APIXAB 2.5 MG TABLET PO SCH ×2 (08:52→17:22)
[2018-01-06] MEDS: FUROSEMIDE INJ 10 MG/ML 4 ML VIAL IV SCH ×2 (08:52→21:43)
[2018-01-06] MEDS: ALLOPURINOL 300 MG TAB PO SCH (08:52)
[2018-01-06] MEDS: GLIMEPIRIDE 2 MG TAB PO SCH (08:52)
[2018-01-06] MEDS: MAGNESIUM OXIDE 400 MG TAB PO SCH ×2 (08:52→17:22)
[2018-01-06] MEDS: RISPERIDONE 0.5 MG TAB PO SCH (08:52)
[2018-01-06] MEDS: PANTOPRAZOLE SOD 40 MG TABEC PO SCH (08:52)
[2018-01-06] MEDS: FERROUS SULFATE 325 MG TAB PO SCH (08:52)
[2018-01-06] MEDS: FOLIC ACID 1 MG TAB PO SCH (08:52)
[2018-01-06] MEDS: POLYETHYLENE GLYCOL 3350 17 GM PACK PO SCH (09:50)
[2018-01-06] MEDS: LINEZOLID 600 MG TAB PO SCH (09:50)
[2018-01-06 12:00] VITALS: BP 120/68
[2018-01-06] MEDS ORDERED: LINEZOLID 600 MG/D5W 300ML 300 ML IV SCH (12:45)
--- NOTE | 2018-01-06 13:20 | Progress Note ---
DATE: INTERNAL MEDICINE PROGRESS NOTE SUBJECTIVE: The patient is doing better now. He is not as agitated as he used to be. VITAL SIGNS: HEART: Shows irregularly irregular heart rate. Normal S1 and S2 sounds. LUNGS: Clear bilaterally. ABDOMEN: Soft. EXTREMITIES: Show evidence of 1+ bilateral pedal edema. VITAL SIGNS: On the blood pressure 118/84, temperature 96.2, heart rate 109 per minute, respiratory rate is 20 per minute, oxygen saturation 95%. LAB: On the BMP: Sodium 140, potassium 4.0, chloride 102, CO2 28, BUN 38, creatinine 1.18, glucose is low at 46. CBC showed white blood count 8.21, hemoglobin 10.0, hematocrit 32.2, platelet count 126,000. PT 19.0, INR 1.73, PTT 42.2. AST 21, ALT 6, total bilirubin 0.7, alkaline phosphatase 101. FINAL IMPRESSION: 1. Urinary tract infection, prostatitis with Methicillin-resistant Staphylococcus aureus. 1. Chronic renal insufficiency stage 3. 2. Acute on chronic systolic and diastolic congestive heart failure. 3. Chronic atrial fibrillation. 4. Encephalopathy. 5. Confusion. 6. Anemia of chronic disease. PLAN OF TREATMENT: Continue with the Zyvox 600 mg IV twice a day. Patient is more cooperative today. Continue allopurinol 300 mg daily. Ferrous sulfate 325 mg daily. Folic acid 1 mg daily. Magnesium oxide 400 mg twice a day. Haldol 1 mg q.6 h. as needed. Continue Protonix 40 mg daily. Eliquis 2.5 mg twice a day for the atrial fibrillation. We are going to hold on the glimepiride because of the hypoglycemia. Continue with the tramadol 50 mg q.4 h. as needed. Levothyroxine 100 mcg daily. Seroquel 25 mg q.6 h. as needed. Risperdal 0.25 mg twice a day. Furosemide 80 mg twice a day. Lorazepam 0.5 mg q.6 h. as needed. Seroquel 25 mg at bedtime. Lactulose 20 grams q.4 h. as needed. We are going to get an evaluation by [facility] for a possible transfer. Job#: [id number] EV
--- NOTE | 2018-01-06 15:19 | Progress Note ---
DATE: January 06, 2018 PSYCHIATRIC PROGRESS NOTE The patient was evaluated and events noted. The patient is sitting up in the bed. He is alert, awake and oriented to situation. He is confused. Does not know where he is. He demands to go home. He is irritable and agitated, yelling. Risperdal was added as he was agitated as per nursing staff. He pulled out IV lines. He is receiving his medications and no serious side effect seen. ASSESSMENT: Unspecified dementia with behavioral disturbances; history of depression. PLAN: Continue Haldol p.r.n. IM. Continue Seroquel p.r.n. p.o. Continue with Seroquel 25 mg p.o. at bedtime. Continue Zoloft 50 mg p.o. daily. Add Seroquel 12.5 mg p.o. daily b.i.d. Continue with Depakote. Monitor for agitation. Discussed with nursing staff. DICTATED BY RONI DOAN Job#: [id number] GRETTA
[2018-01-06 16:00] VITALS: BP 127/71
[2018-01-06] MEDS: QUETIAPINE FUMARATE 25 MG TAB PO SCH ×2 (17:22→21:43)
[2018-01-06 20:00] VITALS: BP 119/56
[2018-01-06] MEDS: LINEZOLID 600 MG/D5W 300ML 300 ML IV SCH (21:43)
[2018-01-06] MEDS: HALOPERIDOL LACTATE 5 MG/ML VIAL IM PRN (23:10)
[2018-01-07] VITALS: BP 110/57
[2018-01-07 04:00] VITALS: BP 101/48
[2018-01-07] MEDS: LEVOTHYROXINE SODIUM 100 MCG TAB PO SCH (06:11)
[2018-01-07] MEDS: INSULIN REGULAR, HUMAN 100 UNIT/1 ML 3ML VIAL SQ SCH ×2 (07:30→11:30)
[2018-01-07 08:00] VITALS: BP 108/61
[2018-01-07] MEDS: QUETIAPINE FUMARATE 25 MG TAB PO SCH (09:00)
[2018-01-07] MEDS: ALLOPURINOL 300 MG TAB PO SCH (10:17)
[2018-01-07] MEDS: FUROSEMIDE INJ 10 MG/ML 4 ML VIAL IV SCH (10:17)
[2018-01-07] MEDS: MAGNESIUM OXIDE 400 MG TAB PO SCH (10:17)
[2018-01-07] MEDS: FOLIC ACID 1 MG TAB PO SCH (10:17)
[2018-01-07] MEDS: LINEZOLID 600 MG/D5W 300ML 300 ML IV SCH (10:17)
[2018-01-07] MEDS: APIXAB 2.5 MG TABLET PO SCH (10:17)
[2018-01-07] MEDS: FERROUS SULFATE 325 MG TAB PO SCH (10:17)
[2018-01-07] MEDS: POLYETHYLENE GLYCOL 3350 17 GM PACK PO SCH (10:17)
[2018-01-07] MEDS: PANTOPRAZOLE SOD 40 MG TABEC PO SCH (10:17)
--- NOTE | 2018-01-07 10:31 | Progress Note ---
DATE: January 07, 2018 PSYCHIATRIC PROGRESS NOTE The patient was evaluated and events noted. Vital signs systolic 108, diastolic 61, pulse 71, respiratory rate 16, temp 96.4. The patient is found to be sitting up in the bed. He is alert and answering questions. He said that he is at [place]. He is confused but pleasant. He is not irritable today. The patient did receive p.r.n. Haldol last night at 2300. The patient is not combative or agitated at this time. He said that he is doing okay. He denies any hallucinations. He is not inactive with internal stimuli. Discussion with the nursing staff reported the patient was a bit irritable yesterday. His daughter came and spoke to him about detention placement. He received Haldol last night. Nursing staff reported that he did not have his breakfast due to lethargy. Medications were adjusted yesterday. Remains the same at this time. ASSESSMENT: Unspecified dementia with behavioral disturbances; history of depression. PLAN: Continue Haldol p.r.n. IM. Continue Seroquel p.r.n. p.o. Continue Seroquel 25 mg p.o. at bedtime. Continue Zoloft 50 mg p.o. daily. Continue Seroquel 12.5 mg p.o. b.i.d. Continue Ativan p.r.n. IM and Ativan p.r.n. p.o. Small dose for mood and agitation. DICTATED BY RONI DOAN Job#: [id number] [place]
[2018-01-07 11:56] VITALS: BP 101/50
--- NOTE | 2018-01-07 15:35 | Discharge Summary ---
HISTORY OF PRESENT ILLNESS: The patient is an 82-year-old male who has past medical history positive for chronic atrial fibrillation, history of mild dementia, history of diabetes who came to the hospital with MRSA in the urine, very confused and agitated also, most likely secondary to the infection. He was started on Zyvox due to the MRSA in the urine. Also, he is taking furosemide IV because of the congestive heart failure. He is going to be transferred to [facility] for continuation of the IV antibiotics and physical and occupational therapy, and optimization of the cardiopulmonary status. PHYSICAL EXAM: HEART: Irregularly irregular heart rate. No murmurs and no extra sounds. LUNGS: Clear bilaterally. ABDOMEN: Soft. EXTREMITIES: Show no evidence of cyanosis, edema or trauma. FINAL IMPRESSION 1. Urinary tract infection, sepsis secondary to methicillin-resistant Staphylococcus aureus. and prostatitis secondary to methicillin-resistant Staphylococcus aureus.. 2. Acute on chronic renal insufficiency. 3. Chronic systolic congestive heart failure, acute component. 4. Metabolic encephalopathy, probably secondary to urinary tract infection and underlying dementia. 5. Chronic atrial fibrillation. 6. Hypothyroidism. 7. Diabetes with chronic renal failure. PLAN OF TREATMENT: Continue Zyvox 300 mg IV piggyback twice a day. Allopurinol 300 mg daily. Ferrous sulfate 325 mg daily. Continue monitoring blood sugar a.c. and nightly. Lorazepam 0.5 mg q.6 hours as needed. Haldol 1 mg IM q.6 hours as needed. Seroquel 12.5 mg twice a day. Folic acid 1 mg daily. Magnesium oxide 400 mg twice a day. Lactulose 20 g q.4 hours. Furosemide 40 mg IV daily. Protonix 40 mg daily. Eliquis 2.5 mg twice a day. Seroquel 25 mg q.6 hours as needed. Continue lorazepam 0.5 mg IM q.6 hours as needed. Levothyroxine 100 mcg daily. Zofran 4 mg IV q.4 hours as needed for vomiting. Seroquel 25 mg at bedtime and tramadol 50 mg q.4 hours as needed. He is going to go to [facility] later on today for continuation of IV antibiotics and physical therapy. SERA MONCADA MD Job#: [id number] [place]
[2018-01-07 15:51] VITALS: BP 102/60
[2018-01-08] MEDS ORDERED: FUROSEMIDE INJ 10 MG/ML 4 ML VIAL IV SCH (09:00)
== END 2018-01-07 16:41 | DRG 698 ==
LOC: ER 06:15 → IMCU 11:19 → OBSVTOIN 17:50 → MED/SURG2 01-02 00:30
PROVIDERS: ADMIT Internal Medicine; ATTEND Internal Medicine
DX: T83.511A Infection and inflammatory reaction due to indwelling urethral catheter, initial encounter (principal); I50.23 Acute on chronic systolic (congestive) heart failure; G93.41 Metabolic encephalopathy; A41.9 Sepsis, unspecified organism; N30.01 Acute cystitis with hematuria; N17.9 Acute kidney failure, unspecified; F05 Delirium due to known physiological condition; N41.0 Acute prostatitis; F03.91 Unspecified dementia, unspecified severity, with behavioral disturbance; I48.2 Chronic atrial fibrillation; E11.21 Type 2 diabetes mellitus with diabetic nephropathy; E11.22 Type 2 diabetes mellitus with diabetic chronic kidney disease; E11.65 Type 2 diabetes mellitus with hyperglycemia; D50.0 Iron deficiency anemia secondary to blood loss (chronic); D72.819 Decreased white blood cell count, unspecified; N18.3 Chronic kidney disease, stage 3 (moderate); B95.62 Methicillin resistant Staphylococcus aureus infection as the cause of diseases classified elsewhere; E03.9 Hypothyroidism, unspecified
CPT/HCPCS: 36415; 70450; 71045; 80048; 80053; 81001; 82270; 82550; 82553; 82607; 82728; 82746; 82948; 83540; 83735; 83880; 84443; 84466; 84484; 85025; 85610; 85730; 86592; 86850; 86900; 87086; 87186; 93005; 96372; 97139; 99284; J1630; J1940; J2020; J2060; J2185; J3370; J3486; J7799